=== PATIENT | female | born 1970 | race Caucasian/White ===

== ENCOUNTER → 2016-03-22 | Outpatient (CLI) | payer OTHER ==
--- NOTE | 2016-03-22 19:30 | XR ---
EXAMINATION TYPE: XR knee limited bilateral DATE OF EXAM: 03/22/2016 7:15 PM COMPARISON: NONE HISTORY: Knee pain TECHNIQUE: 5 views FINDINGS: There is narrowing and spurring seen in both knee joints. There is bilateral spurring of th e patellofemoral joints. There is normal alignment. I see no fracture nor dislocation. There is no si gn of joint effusion. IMPRESSION: Hypertrophic osteoarthritis. No fracture. Spurring is more noticeable in the right knee c ompared to the left.
== END | disposition home or self-care (01) ==
LOC: RADXRMAIN 18:51
PROVIDERS: ATTEND Physician Assistant
DX: M17.0 Bilateral primary osteoarthritis of knee (principal); M76.892 Other specified enthesopathies of left lower limb, excluding foot; M76.891 Other specified enthesopathies of right lower limb, excluding foot

== ENCOUNTER → 2016-04-26 | Outpatient (CLI) | payer OTHER ==
--- NOTE | 2016-04-29 07:32 | XR ---
EXAMINATION TYPE: XR lumbosacral spine min 4V DATE OF EXAM: 04/26/2016 10:01 AM CLINICAL HISTORY: pain COMPARISON: NONE TECHNIQUE: Frontal, lateral, and oblique images of the lumbar spine are obtained. FINDINGS: There are 5 lumbar type vertebral bodies identified. The lumbar spine shows satisfactory alignment without evidence of acute fracture or dislocation. Vertebral body heights are within normal limits. Disc spaces are well preserved. The overlying soft tissue appears unremarkable. IMPRESSION: No acute fracture or dislocation is seen in the lumbar spine.ICD 10 NO FRACTURE, INITIAL EVALUATION
== END | disposition home or self-care (01) ==
LOC: RADXRYALE 09:40
PROVIDERS: ATTEND Family Medicine
DX: M51.26 Other intervertebral disc displacement, lumbar region (principal); M51.36 Other intervertebral disc degeneration, lumbar region
CPT/HCPCS: 72110

== ENCOUNTER → 2020-11-02 | Outpatient (CLI) | payer OTHER ==
[2020-11-02 16:25] VITALS: BP 132/78; PULSE 86; TEMP 99.2; BMI 63.1
--- NOTE | 2020-11-02 16:54 | P.HPBAR ---
Bariatric H&P - History & Physicial H&P Date: 11/02/20 History & Physicial: Visit/CC: initial clinic visit Patient initial contact: Initial weight: Initial weight in pounds: Height: 5 ft 4 in Initial BMI: Last weight: Current weight: 166.922 kg Current weight in pounds: 368.00 Current BMI: 63.1 [place] body weight (based on NIH guidelines): 54.431 kg Excess body weight loss: The patient is a 49 year-old F who presents for Bariatric Assessment. Patient interested in sleeve gastrectomy. States she has been considering this for many years. He was close to having a gastric bypass performed in 2002 she states. Patient with history of bad reflux but says it completely controlled with omeprazole 40 mg daily. States she does have a history of hiatal hernia in the past. Also complains of ulcer arthritis chronic back pain hypertension and hypercholesterolemia. No tobacco use. No abdominal surgeries. No recent EGD. No history of DVT or dysphagia. Review of Systems The patient denies any acute changes in vision or hearing, no dysphagia or odynophagia, no chest pain or shortness of breath, no dysuria or hematuria, no headache, no runny nose, no rectal bleeding or melena, no unexplained weight loss Past Medical History Past Medical History: GERD/Reflux, Hyperlipidemia, Hypertension, Osteoarthritis (OA), Sleep Apnea/CPAP/BIPAP, Thyroid Disorder History of Any Multi-Drug Resistant Organisms: None Reported Past Surgical History: Orthopedic Surgery Additional Past Surgical History / Comment(s): d and C Past Anesthesia/Blood Transfusion Reactions: No Reported Reaction Past Psychological History: Anxiety Smoking Status: Former smoker Past Alcohol Use History: None Reported Additional Past Alcohol Use History / Comment(s): quit smoking 2000 Past Drug Use History: None Reported Surgical - Exam Vital Signs Temp Pulse BP 99.2 F 86 132/78 11/02/20 16:08 11/02/20 16:08 11/02/20 16:08 Physical exam: General: Well-developed, well-nourished HEENT: Normocephalic, sclerae nonicteric Abdomen: Nontender, nondistended Extremities: No edema Neuro: Alert and oriented Bariatric Assessment & Plan (1) Morbid obesity with BMI of 60.0-69.9, adult Narrative/Plan: 49-year-old male with morbid obesity and associated comorbidities. Patient interested in sleeve gastrectomy. Risks and benefits of the procedure along with the alternative surgeries reviewed in detail. Anticipated weight loss also discussed in detail. Increased risk of chronic reflux post-sleeve gastrectomy given her history of bad GERD symptoms and hiatal hernia also reviewed. Patient will continue to consider her options of gastric bypass. We'll tentatively plan upper endoscopy near the tail end of her supervised weight loss which is required. If the patient decides to pursue gastric bypass further will make arrangements for her to be seen by appropriate specialist. Status: Acute Bariatric Checklist Checklist: Plan: Checklist: EGD: 1. Hiatal hernia: 2. H. Pylori: HgbA1c: Vitamin D: Smoking: Primary care physician referral: dr chu Psychiatry clearance: Cardiology clearance: Sleep study: Diet journal: VTE risk score: VTE risk level: Rehab needs at discharge:
== END | disposition home or self-care (01) ==
LOC: BARWHC3 15:38
PROVIDERS: ATTEND Surgery
DX: E66.01 Morbid (severe) obesity due to excess calories (principal); Z68.44 Body mass index [BMI] 60.0-69.9, adult
CPT/HCPCS: 99203

== ENCOUNTER → 2021-03-16 | Outpatient (CLI) | payer OTHER ==
--- NOTE | 2021-03-16 10:47 | XR ---
EXAMINATION TYPE: XR lumbosacral spine min 4V DATE OF EXAM: 03/16/2021 CLINICAL HISTORY: Morbidly obese with pain. TECHNIQUE: Frontal, lateral, and oblique images of the lumbar spine are obtained. COMPARISON: Lumbar spine x-ray May 06, 2016 FINDINGS: There are 5 lumbar type vertebral bodies redemonstrated. The lumbar spine shows stable an d satisfactory alignment without evidence of acute fracture or dislocation. Vertebral body heights ar e preserved. Moderate disc space narrowing L3-L4 level redemonstrated. Mild to moderate disc space na rrowing L5-S1 level redemonstrated. Oblique images appear within normal limits. Overlying soft tissue is unremarkable. IMPRESSION: As above. No significant change from prior.
== END | disposition home or self-care (01) ==
LOC: RADXRYALE 09:55
PROVIDERS: ATTEND Family Medicine
DX: M51.36 Other intervertebral disc degeneration, lumbar region (principal)
CPT/HCPCS: 72110

== ENCOUNTER → 2021-05-28 | Outpatient (CLI) | payer OTHER ==
[2021-05-28 11:29] VITALS: BMI 60.9
== END | disposition home or self-care (01) ==
LOC: BARWHC3 08:52
PROVIDERS: ATTEND Surgery
DX: E66.01 Morbid (severe) obesity due to excess calories (principal); Z71.3 Dietary counseling and surveillance
CPT/HCPCS: 97804

== ENCOUNTER 2023-06-08 22:48 | Inpatient (IN) | payer OTHER ==
[2023-06-08] MEDS: ETOMIDATE 2 MG/ML 10 ML VIAL IVP STA (22:54)
[2023-06-08] MEDS: ROCURONIUM 10 MG/ML (5 ML VIAL) IV STA (22:55)
[2023-06-08 22:56] LABS: Glucose,Whole Blood 77 mg/dL (70-110)
--- NOTE | 2023-06-08 23:06 | ED ---
General Adult HPI - General Stated complaint: Unresponsive Time Seen by Provider: 06/08/23 23:00 - History of Present Illness Initial comments: Dictation was produced using [employer] dictation software. please excuse any grammatical, word or spelling errors. Chief Complaint: 55-year-old female presents to the emergency department for unresponsiveness History of Present Illness: Patient 55-year-old female with unknown medical comorbidities. She was last seen normal approximately 1 and half to 2 hours ago. She was found at home in her truck by family. EMS arrived on scene and patient was minimally responsive with what they reported as sluggish pupils. She was not breathing on her own and required BVM assistance. States that her color improved with BVM. Per EMS she had an 80 over palp blood pressure, normal blood glucose and was in normal sinus rhythm Unable to obtain ROS secondary to mental status - Related Data Allergies Allergy/AdvReac Type Severity Reaction Status Date / Time Unable to Assess Allergy Verified 06/08/23 23:07 Review of Systems ROS Statement: Those systems with pertinent positive or pertinent negative responses have been documented in the HPI. ROS Other: All systems not noted in ROS Statement are negative. General Exam - General Exam Comments Initial Comments: PHYSICAL EXAM: General Impression: A obtunded, unresponsive HEENT: Normocephalic atraumatic, extra-ocular movements intact, pupils equal and reactive to light bilaterally, dry mucous membranes Cardiovascular: Heart regular rate and rhythm Chest: A bilateral breath sounds with BVM Abdomen: abdomen soft, non-distended, no organomegaly Musculoskeletal: no peripheral edema Neurological: NIH of 14 Skin: Intact with no visualized rashes Course Vital Signs 06/08/23 06/08/23 06/08/23 22:48 23:00 23:07 Temperature Pulse Rate 59 L 79 Respiratory 6 L 16 Rate Blood Pressure 121/83 137/79 O2 Sat by Pulse 100 98 Oximetry Fraction of 100 Inspired Oxygen (FIO2) 06/08/23 06/08/23 06/08/23 23:15 23:30 23:41 Temperature Pulse Rate 78 75 Respiratory 16 16 Rate Blood Pressure 131/74 162/97 O2 Sat by Pulse 100 100 Oximetry Fraction of 50 Inspired Oxygen (FIO2) 06/08/23 06/09/23 06/09/23 23:45 00:00 00:15 Temperature 95.7 F L Pulse Rate 54 L 57 L 56 L Respiratory 16 16 16 Rate Blood Pressure 154/94 146/91 153/96 O2 Sat by Pulse 99 99 100 Oximetry Fraction of Inspired Oxygen (FIO2) 06/09/23 06/09/23 06/09/23 00:30 00:45 01:00 Temperature 95.9 F L 95.9 F L 95.9 F L Pulse Rate 54 L 48 L 45 L Respiratory 16 16 16 Rate Blood Pressure 140/87 131/80 134/74 O2 Sat by Pulse 99 100 99 Oximetry Fraction of Inspired Oxygen (FIO2) 06/09/23 06/09/23 06/09/23 01:09 01:15 01:30 Temperature 96.3 F L 96.4 F L 96.8 F L Pulse Rate 49 L 48 L 50 L Respiratory 16 16 16 Rate Blood Pressure 133/84 131/88 125/80 O2 Sat by Pulse 100 100 100 Oximetry Fraction of Inspired Oxygen (FIO2) 06/09/23 06/09/23 01:45 02:02 Temperature 96.8 F L 97.0 F L Pulse Rate 50 L 55 L Respiratory 16 16 Rate Blood Pressure 128/79 134/90 O2 Sat by Pulse 100 100 Oximetry Fraction of Inspired Oxygen (FIO2) - Reevaluation(s) Reevaluation #1: 06/08/23 23:05 Seen and evaluated immediately in trauma bay #1. She was obtunded not protecting her airway. RSI procedure was performed. Code stroke paged. NIH score 14. According to EMS last known normal was 1 and half to 2 hours ago. Reevaluation #2: 06/08/23 23:[address] Calhoun at 11:49 PM. He did review the patient's films. Does not recommend any thrombolytics or thrombectomy at this time. Recommends aspirin Lipitor and medical management. Reevaluation #3: 06/09/23 01:42 More history was obtained from significant other states that patient recently lost 100 pounds of intentional weight loss. She however is reliant on opiate medications to treat her knee pain. He denies that patient had had any suicidal homicidal ideation. To his knowledge patient did not overdose on any medications. She has not been complaining of any thing in particular over the last 2 to 3 days. Procedures - Intubation Sedative: Etomidate Paralytic: Rocuronium Laryngoscope: fiber optic video scope Size: 3 Assist Device Used: fiber optic device ET Tube Size: 7.5 ET Tube Uncuffed: No Tube Secured Depth (cm): 23 Tube Secured Location: teeth Tube Placement Confirmation: visualized tube passing through cords, equal breath sounds bilaterally, no breath sounds over epigastrium, confirmation by capnometry Patient Tolerated Procedure: well Intubation Complications: none Medical Decision Making - Medical Decision Making Was pt. sent in by a medical professional or institution (, PA, FLIGHT SERVICE SPECIALIST, urgent care, hospital, or [facility]...) When possible be specific @ -No Did you speak to anyone other than the patient for history (EMS, parent, family, police, friend...)? What history was obtained from this source @ -No Did you review nursing and triage notes (agree or disagree)? Why? @ -I reviewed and agree with nursing and triage notes Were old charts reviewed (outside hosp., previous admission, EMS record, old EKG, old radiological studies, urgent care reports/EKG's, [facility] records)? Report findings @ -No old charts were reviewed Differential Diagnosis (chest pain, altered mental status, abdominal pain women, abdominal pain men, vaginal bleeding, musculoskeletal, weakness, fever, dyspnea, syncope, headache, dizziness, GI bleed, back pain, seizure, CVA, palpatations, mental health)? @ -Differential Altered Mental Status: Hypoglycemia, DKA, hypercapnia, ETOH, overdose, CO poisoning, trauma, myxedema coma, HTN encephalopathy, infection, encephalitis, psychosis, intercranial hemor rhage, hepatic encephalopathy, meningitis, CVA, this is not meant to be an all- inclusive list EKG interpreted by me (3pts min.). @ -My EKG interpretation: Ventricular rate 59, sinus bradycardia,. 161, QRS 110, QTc 434. No MI prolongation, no QTC prolongation, no ST or T-wave changes noted. Overall, this EKG is unremarkable X-rays interpreted by me (1pt min.). @ -Initial chest x-ray shows no acute processes. There was a right mainstem bronchus intubation. Repeat x-ray was performed after ET tube was pulled back CT interpreted by me (1pt min.). @ -CT scan the brain is nonacute. CT angiography of the brain is nonacute. U/S interpreted by me (1pt. min.). @ -None done What testing was considered but not performed or refused? (CT, X-rays, U/S, labs)? Why? @ -None What meds were considered but not given or refused? Why? @ -None Did you discuss the management of the patient with other professionals (professionals i.e. , PA, FLIGHT SERVICE SPECIALIST, lab, RT, psych nurse, social work msw, escrow manager, teacher, supervisory cbp officer, rn case mgr)? Give summary @ -See above. Case also discussed with recorder helper seismograph for ICU admission Was smoking cessation discussed for >3mins.? @ -No Was critical care preformed (if so, how long)? @ -Yes, 33 minutes Were there social determinants of health that impacted care today? How? (Homelessness, low income, unemployed, alcoholism, drug addiction, transportation, low edu. Level, literacy, decrease access to med. care, alf, rehab)? @ -No Was there de-escalation of care discussed even if they declined (Discuss DNR or withdrawal of care, Hospice)? DNR status @ -No What co-morbidities impacted this encounter? (DM, HTN, Smoking, COPD, CAD, Cancer, CVA, ARF, Chemo, Hep., AIDS, mental health diagnosis, sleep apnea, morbid obesity)? @ -None Was patient admitted / discharged? Hospital course, mention meds given and route, prescriptions, significant lab abnormalities, going to OR and other pertinent info. @ -52-year-old female presents to the emergency department for altered mental status. Vital signs upon arrival are within acceptable limits. Patient breathing sonorously for which she was intubated via RSI. It is unclear what is causing patient's altered mentation. Code stroke paged due to acuity of symptoms however she did not have any obvious focal findings. She however did score an NIH of 14 but she did not have any facial droop or asymmetric neuro logic findings. CT imaging is nonacute. Labs are unremarkable. Vital signs are stable. Is unclear what is causing patient's mental issues. She has no leukocytosis. Her ABG is unremarkable. No signs of hypercapnia. No gap acidosis. No hyperammonemia. Liver enzymes normal. Urine drug screen positive for TCAs, amphetamines and marijuana. Patient be admitted to ICU. Undiagnosed new problem with uncertain prognosis? @ -No Drug Therapy requiring intensive monitoring for toxicity (Heparin, Nitro, Insulin, Cardizem)? @ -No Were any procedures done? @ -Yes, endotracheal intubation Diagnosis/symptom? Acute, or Chronic, or Acute on Chronic? Uncomplicated (without systemic symptoms) or Complicated (systemic symptoms)? @ -Altered mental status, no obvious source, respiratory failure Side effects of treatment? @ -No Exacerbation, Progression, or Severe Exacerbation? @ -No Poses a threat to life or bodily function? How? (Chest pain, USA, OR, pneumonia, PE, COPD, DKA, ARF, appy, cholecystitis, CVA, Diverticulitis, Homicidal, Suicidal, threat to staff... and all critical care pts) @ -yes - Lab Data Result diagrams: 06/08/23 23:06 06/08/23 23:06 Lab Results 06/08/23 06/08/23 06/08/23 Range/Units 22:53 23:06 23:06 WBC 8.1 (3.8-10.6) k/uL RBC 4.20 (3.80-5.40) m/uL Hgb 13.2 (11.4-16.0) gm/dL Hct 41.4 (34.0-46.0) % MCV 98.7 (80.0-100.0) fL MCH 31.5 (25.0-35.0) pg MCHC 31.9 (31.0-37.0) g/dL RDW 12.2 (11.5-15.5) % Plt Count 232 (150-450) k/uL MPV 7.2 Neutrophils % 66 % Lymphocytes % 24 % Monocytes % 6 % Eosinophils % 3 % Basophils % 1 % Neutrophils # 5.3 (1.3-7.7) k/uL Lymphocytes # 1.9 (1.0-4.8) k/uL Monocytes # 0.5 (0-1.0) k/uL Eosinophils # 0.2 (0-0.7) k/uL Basophils # 0.1 (0-0.2) k/uL PT 10.3 (10.0-12.5) sec INR 0.9 (<1.2) APTT 22.9 (22.0-30.0) sec Sample Site ABG pH (7.35-7.45) ABG pCO2 (35-45) mmHg ABG pO2 (83-108) mmHg ABG HCO3 (21-25) mmol/L ABG Total CO2 (19-24) mmol/L ABG O2 Saturation (94-97) % ABG Base Excess mmol/L Chidi Test FiO2 % Sodium (137-145) mmol/L Potassium (3.5-5.1) mmol/L Chloride (98-107) mmol/L Carbon Dioxide (22-30) mmol/L Anion Gap mmol/L BUN (7-17) mg/dL Creatinine (0.52-1.04) mg/dL Est GFR (CKD-EPI)AfAm (>60 ml/min/1.73 sqM) Est GFR (CKD-EPI)NonAf (>60 ml/min/1.73 sqM) Glucose (74-99) mg/dL POC Glucose (mg/dL) 77 (70-110) mg/dL POC Glu Probation Supervisor ID Kali Multani Plasma Lactic Acid [place] (0.7-2.0) mmol/L Calcium (8.4-10.2) mg/dL Total Bilirubin (0.2-1.3) mg/dL AST (14-36) U/L ALT (4-34) U/L Alkaline Phosphatase (38-126) U/L Ammonia (<30) umol/L Creatine Kinase (30-135) U/L Troponin I (0.000-0.034) ng/mL Total Protein (6.3-8.2) g/dL Albumin (3.5-5.0) g/dL Urine Color Urine Appearance (Clear) Urine pH (5.0-8.0) Ur Specific [place] (1.001-1.035) Urine Protein (Negative) Urine Glucose (UA) (Negative) Urine Ketones (Negative) Urine Blood (Negative) Urine Nitrite (Negative) Urine Bilirubin (Negative) Urine Urobilinogen (<2.0) mg/dL Ur Leukocyte Esterase (Negative) Urine Opiates Screen (NotDetected) Ur Oxycodone Screen (NotDetected) Urine Methadone Screen (NotDetected) Ur Barbiturates Screen (NotDetected) U Tricyclic Antidepress (NotDetected) Ur Phencyclidine Scrn (NotDetected) Ur Amphetamines Screen (NotDetected) U Methamphetamines Scrn (NotDetected) U Benzodiazepines Scrn (NotDetected) Urine Cocaine Screen (NotDetected) U Marijuana (THC) Screen (NotDetected) Serum Alcohol mg/dL 06/08/23 06/08/23 06/08/23 Range/Units 23:06 23:06 23:34 WBC (3.8-10.6) k/uL RBC (3.80-5.40) m/uL Hgb (11.4-16.0) gm/dL Hct (34.0-46.0) % MCV (80.0-100.0) fL MCH (25.0-35.0) pg MCHC (31.0-37.0) g/dL RDW (11.5-15.5) % Plt Count (150-450) k/uL MPV Neutrophils % % Lymphocytes % % Monocytes % % Eosinophils % % Basophils % % Neutrophils # (1.3-7.7) k/uL Lymphocytes # (1.0-4.8) k/uL Monocytes # (0-1.0) k/uL Eosinophils # (0-0.7) k/uL Basophils # (0-0.2) k/uL PT (10.0-12.5) sec INR (<1.2) APTT (22.0-30.0) sec Sample Site Right Radial ABG pH 7.44 (7.35-7.45) ABG pCO2 41 (35-45) mmHg ABG pO2 361 H (83-108) mmHg ABG HCO3 28 H (21-25) mmol/L ABG Total CO2 29 H (19-24) mmol/L ABG O2 Saturation 99.5 H (94-97) % ABG Base Excess 3.3 mmol/L Chidi Test Yes FiO2 100 % Sodium 135 L (137-145) mmol/L Potassium 4.7 (3.5-5.1) mmol/L Chloride 102 (98-107) mmol/L Carbon Dioxide 30 (22-30) mmol/L Anion Gap 3 mmol/L BUN 15 (7-17) mg/dL Creatinine 0.73 (0.52-1.04) mg/dL Est GFR (CKD-EPI)AfAm >90 (>60 ml/min/1.73 sqM) Est GFR (CKD-EPI)NonAf >90 (>60 ml/min/1.73 sqM) Glucose 82 (74-99) mg/dL POC Glucose (mg/dL) (70-110) mg/dL POC Glu Probation Supervisor ID Plasma Lactic Acid [place] (0.7-2.0) mmol/L Calcium 8.7 (8.4-10.2) mg/dL Total Bilirubin 0.7 (0.2-1.3) mg/dL AST 30 (14-36) U/L ALT 37 H (4-34) U/L Alkaline Phosphatase 188 H (38-126) U/L Ammonia (<30) umol/L Creatine Kinase 59 (30-135) U/L Troponin I <0.012 (0.000-0.034) ng/mL Total Protein 6.2 L (6.3-8.2) g/dL Albumin 3.6 (3.5-5.0) g/dL Urine Color Urine Appearance (Clear) Urine pH (5.0-8.0) Ur Specific [place] (1.001-1.035) Urine Protein (Negative) Urine Glucose (UA) (Negative) Urine Ketones (Negative) Urine Blood (Negative) Urine Nitrite (Negative) Urine Bilirubin (Negative) Urine Urobilinogen (<2.0) mg/dL Ur Leukocyte Esterase (Negative) Urine Opiates Screen (NotDetected) Ur Oxycodone Screen (NotDetected) Urine Methadone Screen (NotDetected) Ur Barbiturates Screen (NotDetected) U Tricyclic Antidepress (NotDetected) Ur Phencyclidine Scrn (NotDetected) Ur Amphetamines Screen (NotDetected) U Methamphetamines Scrn (NotDetected) U Benzodiazepines Scrn (NotDetected) Urine Cocaine Screen (NotDetected) U Marijuana (THC) Screen (NotDetected) Serum Alcohol mg/dL 06/09/23 06/09/23 06/09/23 Range/Units 00:21 00:21 00:21 WBC (3.8-10.6) k/uL RBC (3.80-5.40) m/uL Hgb (11.4-16.0) gm/dL Hct (34.0-46.0) % MCV (80.0-100.0) fL MCH (25.0-35.0) pg MCHC (31.0-37.0) g/dL RDW (11.5-15.5) % Plt Count (150-450) k/uL MPV Neutrophils % % Lymphocytes % % Monocytes % % Eosinophils % % Basophils % % Neutrophils # (1.3-7.7) k/uL Lymphocytes # (1.0-4.8) k/uL Monocytes # (0-1.0) k/uL Eosinophils # (0-0.7) k/uL Basophils # (0-0.2) k/uL PT (10.0-12.5) sec INR (<1.2) APTT (22.0-30.0) sec Sample Site ABG pH (7.35-7.45) ABG pCO2 (35-45) mmHg ABG pO2 (83-108) mmHg ABG HCO3 (21-25) mmol/L ABG Total CO2 (19-24) mmol/L ABG O2 Saturation (94-97) % ABG Base Excess mmol/L Chidi Test FiO2 % Sodium (137-145) mmol/L Potassium (3.5-5.1) mmol/L Chloride (98-107) mmol/L Carbon Dioxide (22-30) mmol/L Anion Gap mmol/L BUN (7-17) mg/dL Creatinine (0.52-1.04) mg/dL Est GFR (CKD-EPI)AfAm (>60 ml/min/1.73 sqM) Est GFR (CKD-EPI)NonAf (>60 ml/min/1.73 sqM) Glucose (74-99) mg/dL POC Glucose (mg/dL) (70-110) mg/dL POC Glu Probation Supervisor ID Plasma Lactic Acid [place] 1.2 (0.7-2.0) mmol/L Calcium (8.4-10.2) mg/dL Total Bilirubin (0.2-1.3) mg/dL AST (14-36) U/L ALT (4-34) U/L Alkaline Phosphatase (38-126) U/L Ammonia <9 (<30) umol/L Creatine Kinase (30-135) U/L Troponin I (0.000-0.034) ng/mL Total Protein (6.3-8.2) g/dL Albumin (3.5-5.0) g/dL Urine Color Colorless Urine Appearance Clear (Clear) Urine pH 6.5 (5.0-8.0) Ur Specific [place] 1.039 H (1.001-1.035) Urine Protein Negative (Negative) Urine Glucose (UA) Negative (Negative) Urine Ketones Negative (Negative) Urine Blood Negative (Negative) Urine Nitrite Negative (Negative) Urine Bilirubin Negative (Negative) Urine Urobilinogen <2.0 (<2.0) mg/dL Ur Leukocyte Esterase Negative (Negative) Urine Opiates Screen Not Detected (NotDetected) Ur Oxycodone Screen Not Detected (NotDetected) Urine Methadone Screen Not Detected (NotDetected) Ur Barbiturates Screen Not Detected (NotDetected) U Tricyclic Antidepress Detected H (NotDetected) Ur Phencyclidine Scrn Not Detected (NotDetected) Ur Amphetamines Screen Detected H (NotDetected) U Methamphetamines Scrn Not Detected (NotDetected) U Benzodiazepines Scrn Not Detected (NotDetected) Urine Cocaine Screen Not Detected (NotDetected) U Marijuana (THC) Screen Detected H (NotDetected) Serum Alcohol <10 mg/dL Disposition Clinical Impression: Altered mental status Disposition: ADMITTED IP TO THIS [facility] Condition: Critical Referrals: None,Stated [Primary Care Provider] - 1-2 days Decision Time: 02:33
[2023-06-08] MEDS: SODIUM CHLORIDE 0.9% 500 ML 500 ML IV STA (23:11)
[2023-06-08 23:20] LABS: Basophils # (A) 0.1 k/uL (0-0.2); Basophils % (A) 1 %; Eosinophils # (A) 0.2 k/uL (0-0.7); Eosinophils % (A) 3 %; HCT 41.4 % (34.0-46.0); HGB 13.2 gm/dL (11.4-16.0); Lymphocytes # (A) 1.9 k/uL (1.0-4.8); Lymphocytes % (A) 24 %; MCH 31.5 pg (25.0-35.0); MCHC 31.9 g/dL (31.0-37.0); MCV 98.7 fL (80.0-100.0); Mean Platelet Volume 7.2; Monocytes # (A) 0.5 k/uL (0-1.0); Monocytes % (A) 6 %; Neutrophils # (A) 5.3 k/uL (1.3-7.7); Neutrophils % (A) 66 %; Platelet Count 232 k/uL (150-450); RDW 12.2 % (11.5-15.5); WBC 8.1 k/uL (3.8-10.6)
[2023-06-08 23:24] LABS: INR 0.9 (<1.2); Partial Thromboplastin Time 22.9 sec (22.0-30.0); Prothrombin Time 10.3 sec (10.0-12.5)
[2023-06-08 23:31] LABS: ALT 37 U/L (4-34); African American GFR (CKD) >90 (>60 ml/min/1.73 sqM); Albumin 3.6 g/dL (3.5-5.0); Anion Gap 3 mmol/L; Blood Urea Nitrogen 15 mg/dL (7-17); Calcium 8.7 mg/dL (8.4-10.2); Carbon Dioxide 30 mmol/L (22-30); Chloride 102 mmol/L (98-107); Creatine Kinase 59 U/L (30-135); Glucose 82 mg/dL (74-99); Non-African American GFR(CKD) >90 (>60 ml/min/1.73 sqM); Sodium 135 mmol/L (137-145); Total Bilirubin 0.7 mg/dL (0.2-1.3); Total Protein 6.2 g/dL (6.3-8.2)
[2023-06-08 23:35] LABS: AST 30 U/L (14-36); Alkaline Phosphatase 188 U/L (38-126); Potassium 4.7 mmol/L (3.5-5.1)
[2023-06-08 23:37] LABS: ABG Base Excess 3.3 mmol/L; ABG HCO3 28 mmol/L (21-25); ABG PCO2 41 mmHg (35-45); ABG PH 7.44 (7.35-7.45); ABG PO2 361 mmHg (83-108); ABG TCO2 29 mmol/L (19-24); Allen Test Performed? Yes
[2023-06-08 23:41] LABS: ABG Oxygen Saturation 99.5 % (94-97)
--- NOTE | 2023-06-08 23:54 | XR ---
EXAM: XR Chest, 1 View CLINICAL HISTORY: ITS.REASON XR Reason: altered mental status TECHNIQUE: Frontal view of the chest. COMPARISON: No relevant prior studies available. FINDINGS: Lungs: Patchy bilateral opacities, right greater than left in the setting of reduced lung volumes. Pleural space: Unremarkable. No pleural effusion or pneumothorax. Heart: Unremarkable. No cardiomegaly. Bones/joints: No acute fracture. No dislocation. Tubes, lines and devices: Right mainstem bronchus intubation. Recommend retraction of endotracheal tube by 4 cm. IMPRESSION: 1. Right mainstem bronchus intubation. Recommend retraction of endotracheal tube by 4 cm. 2. Patchy bilateral opacities, right greater than left in the setting of reduced lung volumes. Findings may represent atelectasis or infiltrates. <MYCVCSECTION> Communications: 06/08/23 23:58 Verify Receipt Verified receipt with Dom given to Dr Wynn on 06/07 23:58 (-04:00)
--- NOTE | 2023-06-08 23:56 | CT ---
EXAM: CT Head Without Intravenous Contrast CLINICAL HISTORY: ITS.REASON CT Reason: Neuro deficit, acute, stroke suspected TECHNIQUE: Axial computed tomography images of the head/brain without intravenous contrast. CTDI is 48.8 mGy and DLP is 1120.1 mGy-cm. This CT exam was performed using one or more of the following dose reduction techniques: automated exposure control, adjustment of the mA and/or kV according to patient size, and/or use of iterative reconstruction technique. COMPARISON: No relevant prior studies available. FINDINGS: Brain: Jimmy-cisterna magna. Mild cerebral volume loss. No hemorrhage. No significant white matter disease. Ventricles: No acute findings. No ventriculomegaly. Bones/joints: Unremarkable. No acute fracture. Soft tissues: Left parietal scalp hematoma. Sinuses: Unremarkable as visualized. No acute sinusitis. Mastoid air cells: Unremarkable as visualized. No mastoid effusion. Tubes, lines and devices: NG tube. IMPRESSION: 1. Left parietal scalp hematoma. 2. No acute intracranial pathology.
--- NOTE | 2023-06-09 | CT ---
EXAM: CT Angiography Head With Intravenous Contrast CLINICAL HISTORY: ITS.REASON CT Reason: Neuro deficit, acute, stroke suspected TECHNIQUE: Axial computed tomographic angiography images of the head with intravenous contrast. CTDI is 48.8 mGy and DLP is 1120.1 mGy-cm. This CT exam was performed using one or more of the following dose reduction techniques: automated exposure control, adjustment of the mA and/or kV according to patient size, and/or use of iterative reconstruction technique. MIP reconstructed images were created and reviewed. COMPARISON: No relevant prior studies available. FINDINGS: Right internal carotid artery: No acute findings. Intracranial segment is patent with no significant stenosis. No aneurysm. Right anterior cerebral artery: No occlusion or significant stenosis. No aneurysm. Right middle cerebral artery: No occlusion or significant stenosis. No aneurysm. Right posterior cerebral artery: No occlusion or significant stenosis. No aneurysm. Right vertebral artery: Unremarkable as visualized. Left internal carotid artery: No acute findings. Intracranial segment is patent with no significant stenosis. No aneurysm. Left anterior cerebral artery: No occlusion or significant stenosis. No aneurysm. Left middle cerebral artery: No occlusion or significant stenosis. No aneurysm. Left posterior cerebral artery: No occlusion or significant stenosis. No aneurysm. Left vertebral artery: Unremarkable as visualized. Basilar artery: No occlusion or significant stenosis. No aneurysm. IMPRESSION: No large vessel occlusion or aneurysm. EXAM: CT Angiography Neck With Intravenous Contrast CLINICAL HISTORY: ITS.REASON CT Reason: Neuro deficit, acute, stroke suspected TECHNIQUE: Routine carotid CT angiography protocol was performed with intravenous contrast. NASCET criteria using the distal ICAs for comparison were used for evaluation of stenoses. CTDI is 53.2 mGy and DLP is 1120.1 mGy-cm. This CT exam was performed using one or more of the following dose reduction techniques: automated exposure control, adjustment of the mA and/or kV according to patient size, and/or use of iterative reconstruction technique. MIP reconstructed images were created and reviewed. COMPARISON: None. FINDINGS: VASCULATURE: Right common carotid artery: No significant stenosis. No dissection or occlusion. Right internal carotid artery: See below. Right external carotid artery: No occlusion. Right vertebral artery: No significant stenosis. No dissection or occlusion. Left common carotid artery: No significant stenosis. No dissection or occlusion. Left internal carotid artery: Extracranial segment is patent with no significant stenosis. No dissection or occlusion. Left external carotid artery: No occlusion. Left vertebral artery: No significant stenosis. No dissection or occlusion. NECK: Bones/joints: No acute findings. Soft tissues: Unremarkable. Retropharyngeal space: Retropharyngeal right internal carotid artery. Lung apices: There is some subsegmental atelectasis in the upper lobes. CAROTID STENOSIS REFERENCE USING NASCET CRITERIA: % ICA stenosis = (1 - narrowest ICA diameter/diameter of distal cervical ICA) x 100. Mild - <50% stenosis. Moderate - 50-69% stenosis. Severe - 70-94% stenosis. Near occlusion - 95-99% stenosis. Occluded - 100% stenosis. IMPRESSION: No acute findings in the arteries of the neck.
[2023-06-09 00:41] LABS: Lactic Acid, Venous 1.2 mmol/L (0.7-2.0)
[2023-06-09 01:22] LABS: Appearance,Urine Clear (Clear); Bilirubin,Urine Negative (Negative); Blood,Urine Negative (Negative); Color,Urine Colorless; Glucose,Urine (UA) Negative (Negative); Ketones,Urine Negative (Negative); Leukocyte Esterase,Urine Negative (Negative); Nitrite,Urine Negative (Negative); PH, Urine 6.5 (5.0-8.0); Protein,Urine Negative (Negative); Specific Gravity,Urine 1.039 (1.001-1.035); Urobilinogen,Urine <2.0 mg/dL (<2.0)
[2023-06-09 01:32] LABS: Amphetamine Screen,Urine Detected (NotDetected); Barbiturate Screen,Urine Not Detected (NotDetected); Benzodiazepines Screen,Urine Not Detected (NotDetected); Cocaine Screen,Urine Not Detected (NotDetected); Methadone Screen, Urine Not Detected (NotDetected); Opiate Screen,Urine Not Detected (NotDetected); Oxycodone Screen, Urine Not Detected (NotDetected); Phencyclidine Screen,Urine Not Detected (NotDetected); Tricyclic Antidepressant,Urine Detected (NotDetected); Urn Cannabinoid Scrn Detected (NotDetected)
--- NOTE | 2023-06-09 01:43 | XR ---
EXAM: XR Chest, 1 View CLINICAL HISTORY: ITS.REASON XR Reason: et tube adjustment TECHNIQUE: Frontal view of the chest. COMPARISON: 06/07/22 at 2343 hrs. FINDINGS/IMPRESSION: 1. Endotracheal tube now 1.3 cm above the phill. 2. No change in patchy bilateral airspace opacities.
[2023-06-09] MEDS ORDERED: NALOXONE 0.4 MG/ML 1 ML VIAL IV PRN (02:26)
[2023-06-09] MEDS: SODIUM CHLORIDE 0.9% 1,000 ML IV SCH (02:46)
[2023-06-09 02:58] LABS: Glucose,Whole Blood 77 mg/dL (70-110)
--- NOTE | 2023-06-09 03:32 | P.CNPUL ---
History of Present Illness Consult date: 06/09/23 Chief complaint: Acute change in mental status History of present illness: 52-year-old morbidly obese female patient, came into the emergency department after the patient was found to be face down in the bathroom by her boyfriend. Unfortunately, not a whole lot of history is available on this patient's presentation. She was last seen normal approximately 1-1/2 to 2 hours ago by the boyfriend. The fire department came to her but bathroom and after extensive manipulation she was able to be moved out and brought into the hospital. In the emergency, the patient was obtunded, not protecting her airways and she had an initial NIH score of 14. Code stroke was declared. The patient was further evaluated by emergency department physician and neuro interventionalists. A CT scan of the brain was done that showed left parietal scalp hematoma without any other acute abnormalities. CT angiogram was also done that showed no occlusion of the major arteries. No aneurysm identified. Based on that, the patient was not given thrombolytics and she was not found to be a candidate for thrombolysis. Subsequently, the patient was intubated and placed on mechanical ventilator and she was moved to the intensive care unit. At this point in time, the patient is on propofol which is running at 40 mcg/kg/min. She grimaces to deep painful stimulation. She is hemodynamically stable and she is afebrile. No seizure activity has been noted. No neck stiffness. No fever. The white cell count is at 8.1 with a hemoglobin of 13.2 and a platelet count of 232. Normal coagulation profile. BUN is at 15 with a creatinine of 0.7 and a sodium levels at 135. Currently she is on assist-control mode of mechanical ventilation with a rate of 16, tidal volume of 450, FiO2 of 50% with a PEEP of 5. The blood gas showed a pH of 7.44 with a pCO2 of 41 and pO2 of 361 and this was on FiO2 of 100% post intubation. The liver function tests are showing an AST of 30, ALT of 37, alk phos is 188, ammonia level is less than 9, CPK 59. Troponins are negative. UA is negative. Urine drug screen is positive for tricyclic's and amphetamine and marijuana. Alcohol level is less than 10. No significant acidosis. Serum bicarb is at 30, potassium level 4.7 and sodium levels at 135. Normal coagulation profile. Chest x-ray post intubation showed some mild pulm vascular congestion. No airspace disease or consolidation. There is some limited patchy perihilar infiltrates on the right probably related to the deep ET tube that was retracted and subsequent chest x-ray showed no change in the patchy bilateral airspace opacities. Hemodynamically stable. Pierson catheter is in place. Urine output is adequate. IV fluids are in the form of normal saline at rate of 120 cc an hour. Review of Systems ROS unobtainable: due to endotracheal tube Past Medical History Past Medical History: Unable to Obtain Additional Past Medical History / Comment(s): Morbid obesity, past medical history is unknown, medications are unknown. History of Any Multi-Drug Resistant Organisms: Unobtainable Past Surgical History: Unable to Obtain Past Psychological History: Unable to Obtain Smoking Status: Unknown if ever smoked Past Alcohol Use History: Unable to Obtain Past Drug Use History: Unable to Obtain Medications and Allergies Allergies Allergy/AdvReac Type Severity Reaction Status Date / Time Unable to Assess Allergy Verified 06/08/23 23:07 Physical Exam Vitals: Vital Signs Temp Pulse Resp BP Pulse Ox FiO2 06/09/23 03:19 50 06/09/23 02:30 97.2 F L 49 L 16 127/82 100 06/09/23 02:15 97.2 F L 48 L 16 121/73 100 06/09/23 02:02 97.0 F L 55 L 16 134/90 100 06/09/23 01:45 96.8 F L 50 L 16 128/79 100 06/09/23 01:30 96.8 F L 50 L 16 125/80 100 06/09/23 01:15 96.4 F L 48 L 16 131/88 100 06/09/23 01:09 96.3 F L 49 L 16 133/84 100 06/09/23 01:00 95.9 F L 45 L 16 134/74 99 06/09/23 00:45 95.9 F L 48 L 16 131/80 100 06/09/23 00:30 95.9 F L 54 L 16 140/87 99 06/09/23 00:15 95.7 F L 56 L 16 153/96 100 06/09/23 00:00 57 L 16 146/91 99 06/08/23 23:45 54 L 16 154/94 99 06/08/23 23:41 50 06/08/23 23:30 75 16 162/97 100 06/08/23 23:15 78 16 131/74 100 06/08/23 23:07 100 06/08/23 23:00 79 16 137/79 98 06/08/23 22:48 59 L 6 L 121/83 100 Intake and Output 06/08/23 06/08/23 06/09/23 14:59 22:59 06:59 Intake Total 61.102 Balance 61.102 Intake: Intake, IV Titration 61.102 Amount propofoL 1,000 mg In 61.102 Empty Bag 1 bag @ 15 MCG/ KG/MIN 11.839 mls/hr IV . Q8H27M [facility] Rx#:[id number] Other: Weight 131.542 kg Patient is currently sedated on propofol, calm and comfortable, intubated on mechanical ventilator. She is morbidly obese with a BMI of 44.1. Head exam was generally normal. There was no scleral icterus or corneal arcus. Mucous membranes were moist. Neck was supple and without jugular venous distension, thyromegaly, or carotid bruits. Carotids were easily palpable bilaterally. There was no adenopathy. Lung sounds are equal and symmetrical bilaterally. No rhonchi or any wheezes. Cardiac exam revealed the PMI to be normally situated and sized. The rhythm was regular and no extrasystoles were noted during several minutes of auscultation. The first and second heart sounds were normal and physiologic splitting of the second heart sound was noted. There were no murmurs, rubs, clicks, or gallops. Abdomen is obese and CANNOT be accurately palpated. No direct tenderness or rebound tenderness or guarding. Examination of the extremities revealed easily palpable radial, femoral and pedal pulses. There was no cyanosis, clubbing or edema. Examination of the skin showed a small hematoma over the right knee area and another hematoma over the left scalp. No open wounds. Neurologically, the patient is sedated. She grimaces to deep painful stimulation. She withdraws to painful stimulation. Pupils are round 67 mm in size, reactive to light. No nystagmus. No preferential gaze. No facial asymmetry. Reflexes are +1 and symmetric in all 4 extremities. Motor and sensory function cannot be accurately elicited. The patient has a positive cough and gag. Results - Laboratory Findings CBC and BMP: 06/08/23 23:06 06/08/23 23:06 ABG ABG pH 7.44 (7.35-7.45) 06/08/23 23:34 ABG pCO2 41 mmHg (35-45) 06/08/23 23:34 ABG pO2 361 mmHg (83-108) H 06/08/23 23:34 ABG O2 Saturation 99.5 % (94-97) H 06/08/23 23:34 PT/INR, D-dimer PT 10.3 sec (10.0-12.5) 06/08/23 23:06 INR 0.9 (<1.2) 06/08/23 23:06 Abnormal lab findings: Abnormal Labs 06/08/23 06/08/23 06/09/23 23:06 23:34 00:21 ABG pO2 361 H ABG HCO3 28 H ABG Total CO2 29 H ABG O2 Saturation 99.5 H Sodium 135 L ALT 37 H Alkaline Phosphatase 188 H Total Protein 6.2 L Ur Specific [place] 1.039 H U Tricyclic Antidepress Detected H Ur Amphetamines Screen Detected H U Marijuana (THC) Screen Detected H - Diagnostic Findings Chest x-ray: image reviewed Assessment and Plan Plan: Acute mental status change. The patient was found to be acutely unresponsive. Exact cause is not clear. The patient was found facedown on the floor. Rule out fall with head trauma. No indication of an acute CVA although this cannot be completely ruled out. CAT scan of the brain and CT angiogram of the brain were essentially negative. No neck stiffness. No fever. No signs of any septicemia. No seizure disorder. No metabolic encephalopathy. No drug-induced encephalopathy at least we know of. Urine drug screen is positive for amphetamine, tricyclic's and marijuana. Patient is currently sedated on propo fol Acute respiratory failure due to mental status change. The patient was not hypoxic or hypercapnic. Blood gases are adequate. The patient was intubated to protect her airway as the patient was found to be profoundly unresponsive. Morbid obesity Perihilar patchy infiltrates, could be related to atelectasis. Pneumonia cannot be completely ruled out Plan Keep the patient on propofol for the time being Cover the patient with IV Unasyn for aspiration purposes. Neurology consultation EEG of the brain in the morning Repeat CAT scan of the brain with the next 24 hours Start the patient on aspirin 81 mg p.o. daily Check sputum Gram stain and culture and blood cultures Echocardiogram in the morning NG tube was inserted and the patient will be kept n.p.o. for now Hemodynamically stable Obtain a baseline EKG put the patient on Lovenox 40 mg subcu for DVT prophylaxis Put the patient on IV Protonix Will need to interview the boyfriend to obtain further information regarding this current presentation. The exact cause for the mental status is not clear to me at this point in time. Condition is critical Time with Patient: Greater than 30
--- NOTE | 2023-06-09 03:59 | XR ---
EXAM: XR Chest, 1 View CLINICAL HISTORY: ITS.REASON XR Reason: NG tube placement TECHNIQUE: Frontal view of the chest. COMPARISON: 06/09/23 at 0124 hours FINDINGS: Lungs: Reduced lung volumes with patchy bilateral opacities, unchanged. Pleural space: Unremarkable. No pleural effusion or pneumothorax. Heart: Unremarkable. No cardiomegaly or pulmonary vascular congestion. Bones/joints: No acute fracture. No dislocation. Tubes, lines and devices: Endotracheal tube 2 cm above the phill. Enteric tube extends to the gastroduodenal junction. IMPRESSION: 1. Reduced lung volumes with patchy bilateral opacities, unchanged. 2. Endotracheal tube 2 cm above the phill. 3. Enteric tube extends to the gastroduodenal junction.
[2023-06-09 06:03] LABS: Glucose,Whole Blood 82 mg/dL (70-110)
[2023-06-09] MEDS: AMPICILLIN-SULBACTAM 3 GM in SODIUM CHLORIDE 0.9% 100 ML IVPB SCH (06:33)
[2023-06-09 06:38] LABS: ABG Base Excess 4.5 mmol/L; ABG HCO3 29 mmol/L (21-25); ABG PCO2 42 mmHg (35-45); ABG PH 7.45 (7.35-7.45); ABG PO2 175 mmHg (83-108); ABG TCO2 30 mmol/L (19-24); Allen Test Performed? Yes
[2023-06-09] MEDS: MIDAZOLAM HCL 50 MG in SODIUM CHLORIDE 0.9% 40 ML IV SCH (08:14)
[2023-06-09] MEDS: ENOXAPARIN 40 MG/0.4 ML SYRINGE SQ SCH (10:18)
[2023-06-09] MEDS: PANTOPRAZOLE 40 MG/10 ML VIAL IVP SCH (10:18)
[2023-06-09] MEDS: ASPIRIN 81 MG PO SCH (10:19)
[2023-06-09 11:49] LABS: Glucose,Whole Blood 117 mg/dL (70-110)
--- NOTE | 2023-06-09 12:13 | P.PN ---
Subjective Progress Note Date: 06/09/23 Principal diagnosis: Acute mental status change, unresponsiveness, requiring intubation mechanical ventilation mostly to protect airways 52-year-old morbidly obese female patient, came into the emergency department after the patient was found to be face down in the bathroom by her boyfriend. Unfortunately, not a whole lot of history is available on this patient's presentation. She was last seen normal approximately 1-1/2 to 2 hours ago by the boyfriend. The fire department came to her but bathroom and after extensive manipulation she was able to be moved out and brought into the hospital. In the emergency, the patient was obtunded, not protecting her airways and she had an initial NIH score of 14. Code stroke was declared. The patient was further evaluated by emergency department physician and neuro interventionalists. A CT scan of the brain was done that showed left parietal scalp hematoma without any other acute abnormalities. CT angiogram was also done that showed no occlusion of the major arteries. No aneurysm identified. Based on that, the patient was not given thrombolytics and she was not found to be a candidate for thrombolysis. Subsequently, the patient was intubated and placed on mechanical ventilator and she was moved to the intensive care unit. At this point in time, the patient is on propofol which is running at 40 mcg/kg/min. She grimaces to deep painful stimulation. She is hemodynamically stable and she is afebrile. No seizure activity has been noted. No neck stiffness. No fever. The white cell count is at 8.1 with a hemoglobin of 13.2 and a platelet count of 232. Normal coagulation profile. BUN is at 15 with a creatinine of 0.7 and a sodium levels at 135. Currently she is on assist-control mode of mechanical aditi tilation with a rate of 16, tidal volume of 450, FiO2 of 50% with a PEEP of 5. The blood gas showed a pH of 7.44 with a pCO2 of 41 and pO2 of 361 and this was on FiO2 of 100% post intubation. The liver function tests are showing an AST of 30, ALT of 37, alk phos is 188, ammonia level is less than 9, CPK 59. Troponins are negative. UA is negative. Urine drug screen is positive for tricyclic's and amphetamine and marijuana. Alcohol level is less than 10. No significant acidosis. Serum bicarb is at 30, potassium level 4.7 and sodium levels at 135. Normal coagulation profile. Chest x-ray post intubation showed some mild pulm vascular congestion. No airspace disease or consolidation. There is some limited patchy perihilar infiltrates on the right probably related to the deep ET tube that was retracted and subsequent chest x-ray showed no change in the patchy bilateral airspace opacities. Hemodynamically stable. Pierson catheter is in place. Urine output is adequate. IV fluids are in the form of normal saline at rate of 120 cc an hour. Patient evaluated today on 06/09/2023, patient is intubated and mechanically ventilated. She is on assist-control rate 16 tidal volume 450 FiO2 40% and PEEP of 5, ABG this morning showed a pO2 of 175 pCO2 42 pH of 7.45 hence FiO2 was cut down to 35%. Patient is requiring propofol at 75 mcg/kg/min she is also on Versed 5 mg/h 0.9 normal saline at 125 cc/h and I cut it down to 75 patient is on Unasyn empirically, she is also on Lovenox for DVT prophylaxis, patient is positive for amphetamine, tricyclic's, marijuana, neurology consultation is pending.The workup is nondiagnostic, and could not explain her episode of unresponsiveness, labs were reviewed, drug screen was reviewed CT angiogram showed no acute findings in the arteries of the neck CT of the brain showed a left parietal scalp hematoma and no intracranial process noted patient remains unresponsive to any stimuli, her pupils are equally reactive to light. Objective - Vital Signs Vital signs: Vital Signs Temp 98.2 F 06/09/23 08:15 Pulse 70 06/09/23 11:00 Resp 16 06/09/23 11:00 BP 124/70 06/09/23 11:00 Pulse Ox 100 06/09/23 11:00 FiO2 35 06/09/23 09:30 Intake & Output 06/08/23 06/09/23 06/09/23 18:59 06:59 18:59 Intake Total 639.431 917.444 Output Total 540 715 Balance 99.431 202.444 Weight 142.7 kg Intake: IV 480 610 Ampicillin-Sulbactam 3 gm 100 In Sodium Chloride 0.9% 100 ml @ 200 mls/hr IVPB Q6HR [facility] Rx#:[id number] Sodium Chloride 0.9% 1, 480 510 000 ml @ 75 mls/hr IV . [id number] [facility] Rx#:[id number] Intake, IV Titration 159.431 247.444 Amount Midazolam HCl 50 mg In 6.300 Sodium Chloride 0.9% 40 ml @ 1 MG/HR 1 mls/hr IV .Q24H [facility] Rx#:[id number] propofoL 1,000 mg In 159.431 241.144 Empty Bag 1 bag @ 15 MCG/ KG/MIN 11.839 mls/hr IV . Q8H27M [facility] Rx#:[id number] Oral 60 Output: Gastric Drainage 250 Urine 540 465 Other: Voiding Method Indwelling Catheter Indwelling Catheter - Exam General: Reveals a 52-year-old female intubated mechanically ventilated not in distress seems to be calm. Skin: Skin is warm and dry and no rashes or lesions are noted. Eye: Pupils are equal, round and reactive to light Ears, nose, mouth and throat: There are moist mucous membranes and no oral lesions. Tracheal tube and orogastric tube are intact. Neck: The neck is supple, there is no tenderness or JVD. Cardiovascular: Distant S1-S2, no S3 gallop. Respiratory: Symmetrical chest expansion clear breath sound bilaterally Gastrointestinal: Soft, non-distended, non-tender abdomen without masses or organomegaly noted. There is no rebound or guarding present. Bowel sounds are unremarkable. Back: There is no tenderness to palpation in the midline. There is no obvious deformity. Musculoskeletal: Normal ROM, no tenderness, There is no pedal edema. There is no calf tenderness or swelling. No cords were appreciated. Neurological: Could not fully assess, patient is requiring propofol and Versed for extreme agitation and restlessness, she is on propofol at 75 and Versed at 5 Psychiatric: Could not assess - Labs CBC & Chem 7: 06/08/23 23:06 06/08/23 23:06 Labs: Abnormal Lab Results - Last 24 Hours (Table) 06/08/23 06/08/23 06/09/23 Range/Units 23:06 23:34 00:21 ABG pO2 361 H (83-108) mmHg ABG HCO3 28 H (21-25) mmol/L ABG Total CO2 29 H (19-24) mmol/L ABG O2 Saturation 99.5 H (94-97) % Sodium 135 L (137-145) mmol/L POC Glucose (mg/dL) (70-110) mg/dL ALT 37 H (4-34) U/L Alkaline Phosphatase 188 H (38-126) U/L Total Protein 6.2 L (6.3-8.2) g/dL Ur Specific [place] 1.039 H (1.001-1.035) U Tricyclic Antidepress Detected H (NotDetected) Ur Amphetamines Screen Detected H (NotDetected) U Marijuana (THC) Screen Detected H (NotDetected) 06/09/23 06/09/23 Range/Units 06:32 11:43 ABG pO2 175 H (83-108) mmHg ABG HCO3 29 H (21-25) mmol/L ABG Total CO2 30 H (19-24) mmol/L ABG O2 Saturation 99.0 H (94-97) % Sodium (137-145) mmol/L POC Glucose (mg/dL) 117 H (70-110) mg/dL ALT (4-34) U/L Alkaline Phosphatase (38-126) U/L Total Protein (6.3-8.2) g/dL Ur Specific [place] (1.001-1.035) U Tricyclic Antidepress (NotDetected) Ur Amphetamines Screen (NotDetected) U Marijuana (THC) Screen (NotDetected) Assessment and Plan Assessment: Impression: Acute mental status change exact etiology remains unclear Intubation to protect airways, patient was not hypoxic or hypercapnic and intubation was mostly done for airways protection Morbid obesity Perihilar patchy infiltrates, possible atelectasis or aspiration patient is empirically on antibiotics Positive drug screen and urine Scalp hematoma secondary to fall Possible seizure Recommendation: Continue ventilatory support, FiO2 cut down to 35% based on ABG, patient is still requiring significant sedation for extreme agitation while intubated and mechanically ventilated. Continue IV Unasyn for aspiration purposes Neurology to see on consultation, EEG and repeat CT of the brain are pending Continue aspirin Continue GI and DVT prophylaxis Nutritional support/enteral feeding Patient is not requiring any hemodynamic support at present Continue IV Lovenox and IV Protonix Will continue to follow. Patient is critically ill. Critical care time is over 30-minute Time with Patient: Greater than 30
--- NOTE | 2023-06-09 13:42 | P.HPIM ---
History of Present Illness H&P Date: 06/09/23 History of present illness; patient is a 52-year-old lady with no significant past medical history brought to the ER for altered mental status and fall. History is limited and most of it is obtained from electronic medical records. According to them patient was found lying facedown on the floor of the restroom by her boyfriend. Patient was not responsive, EMS was called and when they arrived at the spot patient was found to be obtunded. Patient was found to have shallow breaths and minimally responsive. Patient was immediately transferred to the ER. Initial lab work done in the ER showed WBC 8.1, hemoglobin 13.2, platelet count 232, sodium 135, potassium 4.7, BUN 15, creatinine 0.73 UA was negative for any infection Urine drug screen was positive for barbiturates, amphetamines, marijuana. Initial NIH score was 14. Code stroke was called and immediate CT of the head was done that showed left parietal scalp hematoma. CT angiogram was negative for any occlusion of major vessels of head and neck. ER physician discussed with on-call interventional neurologist, patient was deemed not a candidate for thrombolytic therapy Patient was intubated in the ER and was transferred to ICU REVIEW OF SYSTEMS: Currently intubated and sedated PHYSICAL EXAMINATION: GENERAL: The patient is intubated, not in any acute distress. Well developed, well nourished. HEENT: Pupils are round and equally reacting to light. EOMI. No scleral icterus. CARDIOVASCULAR: S1 and S2 present. No murmurs, rubs, or gallops. PULMONARY: Chest is clear to auscultation, no wheezing or crackles. ABDOMEN: Soft, nontender, nondistended, normoactive bowel sounds. No palpable organomegaly. MUSCULOSKELETAL: No joint swelling or deformity. EXTREMITIES: No cyanosis, clubbing, or pedal edema. NEUROLOGICAL: Intubated and sedated SKIN: No rashes. Assessment and plan Acute metabolic encephalopathy Acute hypoxic respiratory failure Polysubstance abuse Morbid obesity Monitor vital signs Monitor CBC Monitor CMP Continue vent management per ICU Aggressive bronchopulmonary hygiene EEG ordered Repeat CT scan of the brain 2D echo ordered Neurology consulted ICU following Labs and medication were reviewed.. Continue same treatment. Continue with symptomatic treatment. Resume home medication. Monitor labs and vitals. DVT and GI prophylaxis. Further recommendations as per clinical course of the patient Dictation was produced using [employer] dictation software. please excuse any grammatical, word or spelling errors. Past Medical History Past Medical History: Unable to Obtain Additional Past Medical History / Comment(s): Morbid obesity, past medical history is unknown, medications are unknown. History of Any Multi-Drug Resistant Organisms: Unobtainable Past Surgical History: Unable to Obtain Additional Past Surgical History / Comment(s): d and C Past Anesthesia/Blood Transfusion Reactions: No Reported Reaction Past Psychological History: Unable to Obtain Smoking Status: Unknown if ever smoked Past Alcohol Use History: Unable to Obtain Past Drug Use History: Unable to Obtain Medications and Allergies Home Medications Medication Instructions Recorded Confirmed Type Amitriptyline HCl [Elavil] 100 mg PO DAILY 11/03/20 11/03/20 History Cyclobenzaprine [Flexeril] 10 mg PO TID 11/03/20 11/03/20 History Levothyroxine Sodium [Tirosint] 100 mcg PO DAILY 11/03/20 11/03/20 History Celecoxib [CeleBREX] 200 mg PO DAILY 11/09/20 11/09/20 History DULoxetine HCL [Cymbalta] 60 mg PO HS 11/09/20 11/09/20 History Gabapentin [Neurontin] 300 mg PO QID 11/09/20 11/09/20 History Lisinopril-Hctz 10-12.5 mg 1 tab PO DAILY 11/09/20 11/09/20 History [Zestoretic 10-12.5] Metoprolol Succinate [Kapspargo 25 mg PO DAILY 11/09/20 11/09/20 History Sprinkle] Naproxen 500 mg PO BID 11/09/20 11/09/20 History Omeprazole 40 mg PO DAILY 11/09/20 11/09/20 History Pravastatin Sodium [Pravachol] 40 mg PO DAILY 11/09/20 11/09/20 History buPROPion HCL [buPROPion HCL SR] 150 mg PO DAILY 11/09/20 11/09/20 History Amitriptyline HCl [Elavil] 100 mg PO HS 06/09/23 06/09/23 History Cyclobenzaprine [Flexeril] 10 mg PO TID 06/09/23 06/09/23 History DULoxetine HCL [Cymbalta] 60 mg PO DAILY 06/09/23 06/09/23 History Furosemide [Lasix] 20 - 40 mg PO DAILY PRN 06/09/23 06/09/23 History Gabapentin [Neurontin] 600 mg PO DAILY 06/09/23 06/09/23 History Gabapentin [Neurontin] 900 mg PO HS 06/09/23 06/09/23 History Levothyroxine Sodium [Synthroid] 100 mcg PO DAILY 06/09/23 06/09/23 History Lisinopril-Hctz 20-25 mg 1 tab PO BID 06/09/23 06/09/23 History [Zestoretic 20-25] Metoprolol Tartrate [Lopressor] 25 mg PO DAILY 06/09/23 06/09/23 History Omeprazole [PriLOSEC] 40 mg PO DAILY 06/09/23 06/09/23 History Phentermine HCl [Adipex-P] 37.5 mg PO DAILY 06/09/23 06/09/23 History Pravastatin Sodium [Pravachol] 40 mg PO DAILY 06/09/23 06/09/23 History SUMAtriptan succinate [Imitrex] 50 mg PO DAILY PRN 06/09/23 06/09/23 History buPROPion SR [Wellbutrin SR] 150 mg PO BID 06/09/23 06/09/23 History oxyCODONE-APAP 7.5-325MG [Percocet 1 tab PO QID PRN 06/09/23 06/09/23 History 7.5-325 mg] Allergies Allergy/AdvReac Type Severity Reaction Status Date / Time No Known Allergies Allergy Verified 06/09/23 10:10 Physical Exam Vitals: Vital Signs Temp Pulse Resp BP BP Pulse Ox FiO2 06/09/23 09:15 72 13 123/69 100 06/09/23 09:00 71 16 116/65 100 06/09/23 08:45 68 16 115/70 100 06/09/23 08:30 72 16 105/75 99 06/09/23 08:15 98.2 F 85 16 115/43 100 40 06/09/23 08:00 87 17 100 40 06/09/23 07:51 40 06/09/23 07:45 75 16 125/84 98 06/09/23 07:30 71 16 120/74 100 06/09/23 07:15 75 15 129/78 100 06/09/23 07:00 58 L 16 116/70 100 06/09/23 06:46 97.9 F 73 16 90/61 100 06/09/23 06:45 60 16 122/69 100 06/09/23 06:42 40 06/09/23 06:30 65 16 100/58 100 06/09/23 06:16 97.9 F 68 16 114/91 100 06/09/23 06:15 74 19 108/54 100 06/09/23 06:00 52 L 16 107/65 100 06/09/23 05:46 97.9 F 51 L 16 107/65 100 06/09/23 05:45 52 L 16 103/64 100 06/09/23 05:30 51 L 16 105/56 100 06/09/23 05:20 50 L 16 100 06/09/23 05:16 97.5 F L 50 L 16 105/56 100 06/09/23 05:10 50 L 16 100/52 100 06/09/23 05:00 50 L 16 98/58 100 06/09/23 04:50 54 L 16 100 06/09/23 04:46 97.5 F L 51 L 16 98/58 100 06/09/23 04:40 52 L 16 97/54 100 06/09/23 04:30 50 L 16 95/42 100 06/09/23 04:20 51 L 16 100 06/09/23 04:16 97.3 F L 51 L 16 95/42 100 06/09/23 04:10 52 L 16 98/45 100 06/09/23 04:00 97.2 F L 52 L 16 93/49 99 50 06/09/23 03:50 53 L 16 100 06/09/23 03:46 97.2 F L 54 L 16 93/45 100 06/09/23 03:40 56 L 16 93/38 100 06/09/23 03:30 63 13 95/69 100 06/09/23 03:20 77 24 100 06/09/23 03:19 50 06/09/23 03:16 60 16 95/65 99 06/09/23 03:10 69 22 120/87 100 06/09/23 03:00 97.3 F L 57 L 19 106/86 100 50 06/09/23 02:37 97.3 F L 16 120/87 99 50 06/09/23 02:30 97.2 F L 49 L 16 127/82 100 06/09/23 02:15 97.2 F L 48 L 16 121/73 100 06/09/23 02:02 97.0 F L 55 L 16 134/90 100 06/09/23 01:45 96.8 F L 50 L 16 128/79 100 06/09/23 01:30 96.8 F L 50 L 16 125/80 100 06/09/23 01:15 96.4 F L 48 L 16 131/88 100 06/09/23 01:09 96.3 F L 49 L 16 133/84 100 06/09/23 01:00 95.9 F L 45 L 16 134/74 99 06/09/23 00:45 95.9 F L 48 L 16 131/80 100 06/09/23 00:30 95.9 F L 54 L 16 140/87 99 06/09/23 00:15 95.7 F L 56 L 16 153/96 100 06/09/23 00:00 57 L 16 146/91 99 06/08/23 23:45 54 L 16 154/94 99 06/08/23 23:41 50 06/08/23 23:30 75 16 162/97 100 06/08/23 23:15 78 16 131/74 100 06/08/23 23:07 100 06/08/23 23:00 79 16 137/79 98 06/08/23 22:48 59 L 6 L 121/83 100 Intake and Output 06/08/23 06/09/23 06/09/23 22:59 06:59 14:59 Intake Total 639.431 551.654 Output Total 540 300 Balance 99.431 251.654 Intake: IV 480 460 Ampicillin-Sulbactam 3 gm 100 In Sodium Chloride 0.9% 100 ml @ 200 mls/hr IVPB Q6HR [facility] Rx#:[id number] Sodium Chloride 0.9% 1, 480 360 000 ml @ 120 mls/hr IV . Q8H20M [facility] Rx#:[id number] Intake, IV Titration 159.431 91.654 Amount Midazolam HCl 50 mg In 5.467 Sodium Chloride 0.9% 40 ml @ 1 MG/HR 1 mls/hr IV .Q24H [facility] Rx#:[id number] propofoL 1,000 mg In 159.431 86.187 Empty Bag 1 bag @ 15 MCG/ KG/MIN 11.839 mls/hr IV . Q8H27M [facility] Rx#:[id number] Output: Urine 540 300 Other: Voiding Method Indwelling Catheter Weight 131.542 kg 142.7 kg Results CBC & Chem 7: 06/08/23 23:06 06/08/23 23:06 Labs: Abnormal Lab Results - Last 24 Hours (Table) 06/08/23 06/08/23 06/09/23 Range/Units 23:06 23:34 00:21 ABG pO2 361 H (83-108) mmHg ABG HCO3 28 H (21-25) mmol/L ABG Total CO2 29 H (19-24) mmol/L ABG O2 Saturation 99.5 H (94-97) % Sodium 135 L (137-145) mmol/L ALT 37 H (4-34) U/L Alkaline Phosphatase 188 H (38-126) U/L Total Protein 6.2 L (6.3-8.2) g/dL Ur Specific [place] 1.039 H (1.001-1.035) U Tricyclic Antidepress Detected H (NotDetected) Ur Amphetamines Screen Detected H (NotDetected) U Marijuana (THC) Screen Detected H (NotDetected) 06/09/23 Range/Units 06:32 ABG pO2 175 H (83-108) mmHg ABG HCO3 29 H (21-25) mmol/L ABG Total CO2 30 H (19-24) mmol/L ABG O2 Saturation 99.0 H (94-97) % Sodium (137-145) mmol/L ALT (4-34) U/L Alkaline Phosphatase (38-126) U/L Total Protein (6.3-8.2) g/dL Ur Specific [place] (1.001-1.035) U Tricyclic Antidepress (NotDetected) Ur Amphetamines Screen (NotDetected) U Marijuana (THC) Screen (NotDetected)
--- NOTE | 2023-06-09 16:24 | P.CNNES ---
History of Present Illness Consult date: 06/09/23 Requesting physician: Herbert Wynn Reason for Consult: Altered mental status History of Present Illness: Patient is a 52-year-old female, who was brought to the hospital by ambulance, yesterday at 10:48 PM. for altered mental status. EMS flowsheet not available in the chart. Patient lives with her boyfriend. Apparently the boyfriend heard a thud and when he went in, he found her on the floor facedown in the bathroom. EMS came and they pulled out from the bathroom. Patient started having agonal breathing therefore she was intubated at the field. Patient was obtunded, not protecting her airways and she had initial NIH stroke scale of 14. Code stroke was activated. Patient had a left parietal scalp hematoma. Her last known well was about 1-1/2 to 2 hours prior to arrival. ED staff discussed case with Dr Mead, as her NIH stroke scale was 14. Patient was not a candidate for tPA because of the presence of scalp hematoma, as per nursing report. Dr. Calhoun recommended statin and aspirin. Vital signs on arrival blood pressure 121/83 pulse rate 59, and patient is afebrile. Patient had some bradycardia in the beginning, but has improved now. Blood test shows normal CBC, PT PTT, normal CMP with mildly elevated ALT 37 but normal AST 30. Troponin negative. UA negative, urine drug screen positive for tricyclic antidepressant, amphetamines and marijuana. Patient's medication list mentions about phentermine, although the nursing report mentions that the list from her physician's office does not say she is on it. Chest x-ray revealed right mainstem bronchus intubation. Recommend retraction of endotracheal tube by 4 cm. Patchy bilateral opacities, right greater than left. Findings may represent atelectasis or infiltrate. CT head revealed left parietal scalp hematoma. No acute intracranial pathology. I personally reviewed CT head agree with the findings. Chest x-ray revealed endotracheal tube now 1.3 cm above the phill. Patient when arrived to the ER, she was on propofol 55 mcg/kg/min. She was thrashing around. The dose was increased to 75 mcg/kg/min which did not help. She was then started on Versed drip, currently on Versed 6 mg/h. The propofol is now down to 60 mcg/kg/min. No reported history of alcoholism. She does have history of chronic pain for which she is on OxyContin. She also uses marijuana. Her home medication list mentions about phentermine, but patient apparently is not taking it. Home medications include omeprazole, Cymbalta 60 mg, sumatriptan, phentermine, Lasix, Wellbutrin SR 150 mg twice daily, gabapentin 900 mg at bedtime, lisinopril/HCTZ, Flexeril, Elavil 100 mg, Percocet, Pravachol, levothyroxine, gabapentin and metoprolol. Review of Systems Nursing staff does not know any more details. Family members not present. ROS unobtainable: due to endotracheal tube, due to mental status Past Medical History Past Medical History: Unable to Obtain Additional Past Medical History / Comment(s): Morbid obesity, past medical history is unknown, medications are unknown. History of Any Multi-Drug Resistant Organisms: Unobtainable Past Surgical History: Unable to Obtain Additional Past Surgical History / Comment(s): d and C Past Anesthesia/Blood Transfusion Reactions: No Reported Reaction Past Psychological History: Unable to Obtain Smoking Status: Unknown if ever smoked Past Alcohol Use History: Unable to Obtain Past Drug Use History: Unable to Obtain Medications and Allergies Home Medications Medication Instructions Recorded Confirmed Type Amitriptyline HCl [Elavil] 100 mg PO DAILY 11/03/20 11/03/20 History Cyclobenzaprine [Flexeril] 10 mg PO TID 11/03/20 11/03/20 History Levothyroxine Sodium [Tirosint] 100 mcg PO DAILY 11/03/20 11/03/20 History Celecoxib [CeleBREX] 200 mg PO DAILY 11/09/20 11/09/20 History DULoxetine HCL [Cymbalta] 60 mg PO HS 11/09/20 11/09/20 History Gabapentin [Neurontin] 300 mg PO QID 11/09/20 11/09/20 History Lisinopril-Hctz 10-12.5 mg 1 tab PO DAILY 11/09/20 11/09/20 History [Zestoretic 10-12.5] Metoprolol Succinate [Kapspargo 25 mg PO DAILY 11/09/20 11/09/20 History Sprinkle] Naproxen 500 mg PO BID 11/09/20 11/09/20 History Omeprazole 40 mg PO DAILY 11/09/20 11/09/20 History Pravastatin Sodium [Pravachol] 40 mg PO DAILY 11/09/20 11/09/20 History buPROPion HCL [buPROPion HCL SR] 150 mg PO DAILY 11/09/20 11/09/20 History Amitriptyline HCl [Elavil] 100 mg PO HS 06/09/23 06/09/23 History Cyclobenzaprine [Flexeril] 10 mg PO TID 06/09/23 06/09/23 History DULoxetine HCL [Cymbalta] 60 mg PO DAILY 06/09/23 06/09/23 History Furosemide [Lasix] 20 - 40 mg PO DAILY PRN 06/09/23 06/09/23 History Gabapentin [Neurontin] 600 mg PO DAILY 06/09/23 06/09/23 History Gabapentin [Neurontin] 900 mg PO HS 06/09/23 06/09/23 History Levothyroxine Sodium [Synthroid] 100 mcg PO DAILY 06/09/23 06/09/23 History Lisinopril-Hctz 20-25 mg 1 tab PO BID 06/09/23 06/09/23 History [Zestoretic 20-25] Metoprolol Tartrate [Lopressor] 25 mg PO DAILY 06/09/23 06/09/23 History Omeprazole [PriLOSEC] 40 mg PO DAILY 06/09/23 06/09/23 History Phentermine HCl [Adipex-P] 37.5 mg PO DAILY 06/09/23 06/09/23 History Pravastatin Sodium [Pravachol] 40 mg PO DAILY 06/09/23 06/09/23 History SUMAtriptan succinate [Imitrex] 50 mg PO DAILY PRN 06/09/23 06/09/23 History buPROPion SR [Wellbutrin SR] 150 mg PO BID 06/09/23 06/09/23 History oxyCODONE-APAP 7.5-325MG [Percocet 1 tab PO QID PRN 06/09/23 06/09/23 History 7.5-325 mg] Allergies Allergy/AdvReac Type Severity Reaction Status Date / Time No Known Allergies Allergy Verified 06/09/23 10:10 Physical Examination - Vital Signs Vital Signs: Vital Signs Temp Pulse Resp BP BP Pulse Ox FiO2 06/09/23 12:17 35 06/09/23 11:00 70 16 124/70 100 06/09/23 10:45 69 16 124/70 100 06/09/23 10:30 71 16 124/70 100 06/09/23 10:15 70 16 123/69 100 06/09/23 10:00 72 18 100 06/09/23 09:45 64 16 115/72 100 06/09/23 09:30 70 16 95/50 100 35 06/09/23 09:15 72 13 123/69 100 06/09/23 09:00 71 16 116/65 100 06/09/23 08:45 68 16 115/70 100 06/09/23 08:30 72 16 105/75 99 06/09/23 08:15 98.2 F 85 16 115/43 100 40 06/09/23 08:00 87 17 100 40 06/09/23 07:51 40 06/09/23 07:45 75 16 125/84 98 06/09/23 07:30 71 16 120/74 100 06/09/23 07:15 75 15 129/78 100 06/09/23 07:00 58 L 16 116/70 100 06/09/23 06:46 97.9 F 73 16 90/61 100 06/09/23 06:45 60 16 122/69 100 06/09/23 06:42 40 06/09/23 06:30 65 16 100/58 100 06/09/23 06:16 97.9 F 68 16 114/91 100 06/09/23 06:15 74 19 108/54 100 06/09/23 06:00 52 L 16 107/65 100 06/09/23 05:46 97.9 F 51 L 16 107/65 100 06/09/23 05:45 52 L 16 103/64 100 06/09/23 05:30 51 L 16 105/56 100 06/09/23 05:20 50 L 16 100 06/09/23 05:16 97.5 F L 50 L 16 105/56 100 06/09/23 05:10 50 L 16 100/52 100 06/09/23 05:00 50 L 16 98/58 100 06/09/23 04:50 54 L 16 100 06/09/23 04:46 97.5 F L 51 L 16 98/58 100 06/09/23 04:40 52 L 16 97/54 100 06/09/23 04:30 50 L 16 95/42 100 06/09/23 04:20 51 L 16 100 06/09/23 04:16 97.3 F L 51 L 16 95/42 100 06/09/23 04:10 52 L 16 98/45 100 06/09/23 04:00 97.2 F L 52 L 16 93/49 99 50 06/09/23 03:50 53 L 16 100 06/09/23 03:46 97.2 F L 54 L 16 93/45 100 06/09/23 03:40 56 L 16 93/38 100 06/09/23 03:30 63 13 95/69 100 06/09/23 03:20 77 24 100 06/09/23 03:19 50 06/09/23 03:16 60 16 95/65 99 06/09/23 03:10 69 22 120/87 100 06/09/23 03:00 97.3 F L 57 L 19 106/86 100 50 06/09/23 02:37 97.3 F L 16 120/87 99 50 06/09/23 02:30 97.2 F L 49 L 16 127/82 100 06/09/23 02:15 97.2 F L 48 L 16 121/73 100 06/09/23 02:02 97.0 F L 55 L 16 134/90 100 06/09/23 01:45 96.8 F L 50 L 16 128/79 100 06/09/23 01:30 96.8 F L 50 L 16 125/80 100 06/09/23 01:15 96.4 F L 48 L 16 131/88 100 06/09/23 01:09 96.3 F L 49 L 16 133/84 100 06/09/23 01:00 95.9 F L 45 L 16 134/74 99 06/09/23 00:45 95.9 F L 48 L 16 131/80 100 06/09/23 00:30 95.9 F L 54 L 16 140/87 99 06/09/23 00:15 95.7 F L 56 L 16 153/96 100 06/09/23 00:00 57 L 16 146/91 99 06/08/23 23:45 54 L 16 154/94 99 06/08/23 23:41 50 06/08/23 23:30 75 16 162/97 100 06/08/23 23:15 78 16 131/74 100 06/08/23 23:07 100 06/08/23 23:00 79 16 137/79 98 06/08/23 22:48 59 L 6 L 121/83 100 Intake and Output 06/08/23 06/09/23 06/09/23 22:59 06:59 14:59 Intake Total 774.710 2084.444 Output Total 540 765 Balance 99.431 327.444 Intake: IV 480 785 Ampicillin-Sulbactam 3 gm 200 In Sodium Chloride 0.9% 100 ml @ 200 mls/hr IVPB Q6HR [facility] Rx#:[id number] Sodium Chloride 0.9% 1, 480 585 000 ml @ 75 mls/hr IV . [id number] [facility] Rx#:[id number] Intake, IV Titration 159.431 247.444 Amount Midazolam HCl 50 mg In 6.300 Sodium Chloride 0.9% 40 ml @ 1 MG/HR 1 mls/hr IV .Q24H [facility] Rx#:[id number] propofoL 1,000 mg In 159.431 241.144 Empty Bag 1 bag @ 15 MCG/ KG/MIN 11.839 mls/hr IV . Q8H27M [facility] Rx#:[id number] Oral 60 Output: Gastric Drainage 250 Urine 540 515 Other: Voiding Method Indwelling Catheter Indwelling Catheter Weight 131.542 kg 142.7 kg Patient is a middle aged female, who is intubated, sedated on propofol 60 mcg/kg/min as well as Versed 6 mg/h. Patient is sedated, not responding to calling her name. Speech and language functions cannot be assessed. On cranial nerve examination, pupils are about 4 mm, equal, round and reacting to light, oculocephalics are absent. Corneal reflex are present. Patient does have a gag and cough reflex, and is breathing over the ventilator. Other cranial nerves cannot be tested. On muscle strength testing, patient does not squeeze hand. Does not follow commands. With painful stimulus, patient does move her both arms and legs equally. No obvious flaccidity. Deep tendon reflexes are symmetric very hypoactive and plantars are withdrawal versus upgoing bilaterally. Patient is actively moving her legs unchecking plantar stimulation. Sensory to touch cannot be assessed. Response to noxious stimulus as above. Cerebellar function cannot be tested. Tone and bulk of muscles normal. Gait deferred.. On general examination, there is no carotid bruit or murmur, S1-S2 audible. Chest is clear on consultation. Abdomen is soft nontender. No organomegaly, bowel sounds present. Peripheral pulses are present. No peripheral edema. Results - Laboratory Findings CBC and BMP: 06/10/23 06:02 06/10/23 06:02 Abnormal Lab Findings: Abnormal Labs 06/08/23 06/08/23 06/09/23 23:06 23:34 00:21 ABG pO2 361 H ABG HCO3 28 H ABG Total CO2 29 H ABG O2 Saturation 99.5 H Sodium 135 L POC Glucose (mg/dL) ALT 37 H Alkaline Phosphatase 188 H Total Protein 6.2 L Ur Specific [place] 1.039 H U Tricyclic Antidepress Detected H Ur Amphetamines Screen Detected H U Marijuana (THC) Screen Detected H 06/09/23 06/09/23 06:32 11:43 ABG pO2 175 H ABG HCO3 29 H ABG Total CO2 30 H ABG O2 Saturation 99.0 H Sodium POC Glucose (mg/dL) 117 H ALT Alkaline Phosphatase Total Protein Ur Specific [place] U Tricyclic Antidepress Ur Amphetamines Screen U Marijuana (THC) Screen Assessment and Plan Assessment: * Status post unwitnessed fall, followed by altered mental status, unclear cause. * Patient had agonal breathing when EMS arrived, intubated at the scene. * Ventilator dependent respiratory failure, on mechanical ventilation. * Obesity * History of chronic pain. * History of marijuana use Plan: * Stat EEG was performed, which was abnormal due to background slowing of moderate to severe degree, suggestive of generalized cerebral dysfunction as can be seen with toxic metabolic encephalopathy or related to diffuse structural brain abnormality. No epileptiform activity was seen. * CTA of head and neck revealed no large vessel occlusion or aneurysm. No acute findings in the arteries of the neck. * Repeat CT head in the morning. * 2D echo revealed mild left ventricular dysfunction. LVEF 45 to 50%. Severely increased left ventricular diastolic volume. Severely increased left ventricular systolic volume. Global hypokinesis with regional variability. Moderately increased left atrial volume. No valvular abnormalities. * Lipid panel * A1c * Medical management as per IM/ICU. * Neurology will follow. Thank you for the consult.
--- NOTE | 2023-06-09 18:15 | CA ---
Transthoracic Echo Report Name: Svitlana Mireles Age: 52 Gender: F : 1970 Exam Date: 06/09/2023 07:42 Exam Location: [facility] Ht (in): 68 Wt (lb): 290 Ordering Physician: Sejal June MD Attending/Referring Phys: Clinical Administrative Coordinator Felicita Argueta RCS Procedure CPT: Indications: eval LV function Cardiac Hx: Technical Quality: Technically difficult study Contrast 1: Definity Total Dose (mL): 2 Contrast 2: Total Dose (mL): MEASUREMENTS (Male / Female) Normal Values 2D ECHO LV Diastolic Diameter PLAX 4.2 cm 4.2 - 5.9 / 3.9 - 5.3 cm LV Systolic Diameter PLAX 4.2 cm IVS Diastolic Thickness 0.9 cm 0.6 - 1.0 / 0.6 - 0.9 cm LVPW Diastolic Thickness 0.7 cm 0.6 - 1.0 / 0.6 - 0.9 cm LV Relative Wall Thickness 0.4 RV Internal Dim ED PLAX 3.4 cm LVOT Diameter 2.2 cm LV Diastolic Volume MOD BP 177.7 cm??? 67 - 155 / 56 - 104 cm??? LV Systolic Volume MOD BP 81.2 cm??? 22 - 58 / 19 - 49 cm??? LV Ejection Fraction MOD BP 54.3 % >= 55 % LV Cardiac Index MOD BP 2844.0 cm???/min???m??? LV Diastolic Volume MOD 4C 178.1 cm??? LV Systolic Volume MOD 4C 82.6 cm??? LV Ejection Fraction MOD 4C 53.6 % LV Cardiac Index MOD 4C 2815.0 cm???/min???m??? LV Diastolic Length 4C 9.7 cm LV Systolic Length 4C 7.3 cm LV Diastolic Volume MOD 2C 165.5 cm??? LV Systolic Volume MOD 2C 79.0 cm??? LV Ejection Fraction MOD 2C 52.2 % LV Cardiac Index MOD 2C 2547.8 cm???/min???m??? LV Diastolic Length 2C 9.0 cm LV Systolic Length 2C 7.4 cm LA Volume 98.3 cm??? 18 - 58 / 22 - 52 cm??? LA Volume Index 38.1 cm???/m??? 16 - 28 cm???/m??? Ascending Aorta Diameter 3.3 cm DOPPLER AV Peak Velocity 138.7 cm/s AV Peak Gradient 7.7 mmHg AV Mean Velocity 96.1 cm/s AV Mean Gradient 4.1 mmHg AV Velocity Time Integral 30.6 cm LVOT Peak Velocity 126.4 cm/s LVOT Peak Gradient 6.4 mmHg LVOT Velocity Time Integral 27.2 cm LVOT Stroke Volume 102.8 cm??? LVOT Stroke Volume Index 42.9 ml/m??? LVOT Cardiac Index 3028.4 cm???/min???m??? AV Area Cont Eq vti 3.4 cm??? AV Area Cont Eq pk 3.4 cm??? MV Area PHT 5.1 cm??? Mitral E Point Velocity 74.1 cm/s Mitral A Point Velocity 83.1 cm/s Mitral E to A Ratio 0.9 MV Deceleration Time 149.3 ms PV Peak Velocity 96.5 cm/s PV Peak Gradient 3.7 mmHg FINDINGS Left Ventricle Left ventricular ejection fraction is estimated at 45-50 %. Severely increased left ventricular diastolic volume. Severely increased left ventricular systolic volume. Mildly decreased left ventricular ejection fraction. Global hypokinesis with regional variability. Right Ventricle Right ventricular dilatation with normal function. Unable to assess right ventricular systolic function. Right Atrium Normal right atrial size. Left Atrium Moderately increased left atrial volume. Mildly increased left atrial area. Mitral Valve Structurally normal mitral valve. No evidence for mitral valve prolapse. No mitral stenosis. Trace mitral regurgitation. Aortic Valve Trileaflet aortic valve. No aortic stenosis. No aortic regurgitation. Tricuspid Valve Structurally normal tricuspid valve. No tricuspid stenosis. No tricuspid regurgitation. Pulmonic Valve Structurally normal pulmonic valve. No pulmonic stenosis. Trace pulmonic regurgitation. Pericardium No pericardial effusion. Aorta Normal size aortic root and proximal ascending aorta. CONCLUSIONS Mild LV dysfunction Previewed by: Dr. Sergey Bradshaw MD (Electronically Signed) Final Date: 09 June 2023 18:14
[2023-06-09] MEDS: CHLORHEXIDINE GLUCONATE 15 ML CUP MUCOUS MEM SCH (20:56)
--- NOTE | 2023-06-10 00:11 | CT ---
EXAM: CT Head Without Intravenous Contrast CLINICAL HISTORY: ITS.REASON CT Reason: R/O stroke TECHNIQUE: Axial computed tomography images of the head/brain without intravenous contrast. CTDI is 49.1 mGy and DLP is 1273.6 mGy-cm. This CT exam was performed using one or more of the following dose reduction techniques: automated exposure control, adjustment of the mA and/or kV according to patient size, and/or use of iterative reconstruction technique. COMPARISON: 06/08/2023 at 1107 FINDINGS: Brain: Unremarkable. No hemorrhage. No significant white matter disease. No edema. Ventricles: Unremarkable. No ventriculomegaly. Bones/joints: Unremarkable. No acute fracture. Soft tissues: Decreasing left parietal soft tissue swelling. Sinuses: Unremarkable as visualized. No acute sinusitis. Mastoid air cells: Unremarkable as visualized. No mastoid effusion. IMPRESSION: Decreasing left parietal soft tissue swelling. No acute intracranial abnormality.
[2023-06-10 00:31] LABS: Glucose,Whole Blood 105 mg/dL (70-110)
[2023-06-10 06:02] LABS: ABG Base Excess 5.3 mmol/L; ABG HCO3 29 mmol/L (21-25); ABG PCO2 41 mmHg (35-45); ABG PH 7.46 (7.35-7.45); ABG PO2 124 mmHg (83-108); ABG TCO2 30 mmol/L (19-24); Allen Test Performed? Yes
[2023-06-10 06:11] LABS: Glucose,Whole Blood 115 mg/dL (70-110)
[2023-06-10 07:32] LABS: African American GFR (CKD) >90 (>60 ml/min/1.73 sqM); Anion Gap 9 mmol/L; Blood Urea Nitrogen 10 mg/dL (7-17); Calcium 8.2 mg/dL (8.4-10.2); Carbon Dioxide 23 mmol/L (22-30); Chloride 101 mmol/L (98-107); Glucose 101 mg/dL (74-99); Non-African American GFR(CKD) >90 (>60 ml/min/1.73 sqM); Potassium 3.7 mmol/L (3.5-5.1); Sodium 133 mmol/L (137-145)
[2023-06-10] MEDS ORDERED: Potassium Replacement Protocol 1 EACH MISC MISCELLANE PRN (08:00)
[2023-06-10 08:26] LABS: Basophils # (A) 0.1 k/uL (0-0.2); Basophils % (A) 0 %; Eosinophils % (A) 0 %; HCT 36.9 % (34.0-46.0); HGB 11.7 gm/dL (11.4-16.0); Lymphocytes # (A) 0.9 k/uL (1.0-4.8); Lymphocytes % (A) 7 %; MCH 31.9 pg (25.0-35.0); MCHC 31.8 g/dL (31.0-37.0); MCV 100.3 fL (80.0-100.0); Monocytes # (A) 0.7 k/uL (0-1.0); Monocytes % (A) 5 %; Neutrophils # (A) 10.8 k/uL (1.3-7.7); Neutrophils % (A) 85 %; Platelet Count 182 k/uL (150-450); RBC 3.68 m/uL (3.80-5.40); RDW 12.2 % (11.5-15.5); WBC 12.7 k/uL (3.8-10.6)
--- NOTE | 2023-06-10 09:23 | XR ---
EXAMINATION TYPE: XR chest 1V portable DATE OF EXAM: 06/10/2023 Comparison: 06/09/2023 Clinical History: 52 year-old female tube placement Findings: ET and NG tubes satisfactory. Heart borderline in size. Patchy bilateral airspace opacities persist, possibly slightly worsened. Impression: Bilateral patchy airspace opacities similar to slightly increased.
[2023-06-10] MEDS: POTASSIUM BICARBONATE/CIT AC 20 MEQ TABLET.EFF NG-TUBE SCH (09:30)
[2023-06-10] MEDS: HYDROmorphone 1 MG/ML 1 ML SYRINGE IVP PRN (10:47)
[2023-06-10 11:54] LABS: Glucose,Whole Blood 123 mg/dL (70-110)
--- NOTE | 2023-06-10 13:00 | P.PN ---
Subjective Progress Note Date: 06/10/23 patient is a 52-year-old lady with no significant past medical history brought to the ER for altered mental status and fall. History is limited and most of it is obtained from electronic medical records. According to them patient was found lying facedown on the floor of the restroom by her boyfriend. Patient was not responsive, EMS was called and when they arrived at the spot patient was found to be obtunded. Patient was found to have shallow breaths and minimally responsive. Patient was immediately transferred to the ER. Initial lab work done in the ER showed WBC 8.1, hemoglobin 13.2, platelet count 232, sodium 135, potassium 4.7, BUN 15, creatinine 0.73 UA was negative for any infection Urine drug screen was positive for barbiturates, amphetamines, marijuana. Initial NIH score was 14. Code stroke was called and immediate CT of the head was done that showed left parietal scalp hematoma. CT angiogram was negative for any occlusion of major vessels of head and neck. ER physician discussed with on-call interventional neurologist, patient was deemed not a candidate for thrombolytic therapy Patient was intubated in the ER and was transferred to ICU 06/09. Patient seen and examined.Blood work done this morning showed WBC 12.7, hemoglobin 0.7, platelet count 182, sodium 133, potassium 3.7, BUN 10, creatinine 0.50, glucose 115. EEG was performed, which was abnormal due to background slowing of moderate to severe degree, suggestive of generalized cerebral dysfunction as can be seen with toxic metabolic encephalopathy or related to diffuse structural brain abn ormality. No epileptiform activity was seen. REVIEW OF SYSTEMS: Currently intubated and sedated PHYSICAL EXAMINATION: GENERAL: The patient is intubated, not in any acute distress. Well developed, well nourished. HEENT: Pupils are round and equally reacting to light. EOMI. No scleral icterus. CARDIOVASCULAR: S1 and S2 present. No murmurs, rubs, or gallops. PULMONARY: Chest is clear to auscultation, no wheezing or crackles. ABDOMEN: Soft, nontender, nondistended, normoactive bowel sounds. No palpable organomegaly. MUSCULOSKELETAL: No joint swelling or deformity. EXTREMITIES: No cyanosis, clubbing, or pedal edema. NEUROLOGICAL: Intubated and sedated SKIN: No rashes. Assessment and plan Acute metabolic encephalopathy Acute hypoxic respiratory failure Polysubstance abuse Morbid obesity Monitor vital signs Monitor CBC Monitor CMP Continue vent management per ICU Aggressive bronchopulmonary hygiene Continue IV Unasyn EEG was performed, which was abnormal due to background slowing of moderate to severe degree, suggestive of generalized cerebral dysfunction as can be seen with toxic metabolic encephalopathy or related to diffuse structural brain abnormality. No epileptiform activity was seen. Repeat CT scan of the brain on 06/08 showed no acute abnormality 2D echo revealed mild left ventricular dysfunction. LVEF 45 to 50%. Severely increased left ventricular diastolic volume. Severely increased left ventricular systolic volume. Global hypokinesis with regional variability. Moderately increased left atrial volume. No valvular abnormalities. Neurology following ICU following 2D echo was reviewed, consult cardiology. Labs and medication were reviewed.. Continue same treatment. Continue with symptomatic treatment. Resume home medication. Monitor labs and vitals. DVT and GI prophylaxis. Further recommendations as per clinical course of the patient Dictation was produced using [employer] dictation software. please excuse any grammatical, word or spelling errors. Objective - Vital Signs Vital signs: Vital Signs Temp 99 F 06/10/23 04:00 Pulse 69 06/10/23 11:30 Resp 19 06/10/23 11:30 BP 128/55 06/10/23 11:30 Pulse Ox 98 06/10/23 11:30 FiO2 35 06/10/23 12:00 Intake & Output 06/09/23 06/10/23 06/10/23 18:59 06:59 18:59 Intake Total 2075.534 1883.537 915.159 Output Total 4560 340 173 Balance -2484.466 1543.537 742.159 Weight 142.7 kg 148 kg Intake: IV 1410 925 450 Ampicillin-Sulbactam 3 gm 300 100 In Sodium Chloride 0.9% 100 ml @ 200 mls/hr IVPB Q6HR [facility] Rx#:[id number] Sodium Chloride 0.9% 1, 1110 825 450 000 ml @ 75 mls/hr IV . [id number] JASMIN Rx#:[id number] Intake, IV Titration 531.534 681.537 243.159 Amount Midazolam HCl 50 mg In 50.533 114.733 66.367 Sodium Chloride 0.9% 40 ml @ 1 MG/HR 1 mls/hr IV .Q24H [facility]ASMIN Rx#:[id number] propofoL 1,000 mg In 481.001 566.804 176.792 Empty Bag 1 bag @ 15 MCG/ KG/MIN 11.839 mls/hr IV . [id number] JASMIN Rx#:[id number] Oral 60 Tube Feeding 44 187 132 Other 30 90 90 Output: Gastric Drainage 250 Urine 4310 340 173 Other: Voiding Method Indwelling Catheter Indwelling Catheter - Labs CBC & Chem 7: 06/10/23 06:02 06/10/23 06:02 Labs: Abnormal Lab Results - Last 24 Hours (Table) 06/10/23 06/10/23 06/10/23 Range/Units 05:57 06:02 06:02 WBC 12.7 H (3.8-10.6) k/uL RBC 3.68 L (3.80-5.40) m/uL MCV 100.3 H (80.0-100.0) fL Neutrophils # 10.8 H (1.3-7.7) k/uL Lymphocytes # 0.9 L (1.0-4.8) k/uL ABG pH 7.46 H (7.35-7.45) ABG pO2 124 H (83-108) mmHg ABG HCO3 29 H (21-25) mmol/L ABG Total CO2 30 H (19-24) mmol/L ABG O2 Saturation 98.0 H (94-97) % Sodium 133 L (137-145) mmol/L Creatinine 0.50 L (0.52-1.04) mg/dL Glucose 101 H (74-99) mg/dL POC Glucose (mg/dL) (70-110) mg/dL Calcium 8.2 L (8.4-10.2) mg/dL 06/10/23 06/10/23 Range/Units 06:09 11:51 WBC (3.8-10.6) k/uL RBC (3.80-5.40) m/uL MCV (80.0-100.0) fL Neutrophils # (1.3-7.7) k/uL Lymphocytes # (1.0-4.8) k/uL ABG pH (7.35-7.45) ABG pO2 (83-108) mmHg ABG HCO3 (21-25) mmol/L ABG Total CO2 (19-24) mmol/L ABG O2 Saturation (94-97) % Sodium (137-145) mmol/L Creatinine (0.52-1.04) mg/dL Glucose (74-99) mg/dL POC Glucose (mg/dL) 115 H 123 H (70-110) mg/dL Calcium (8.4-10.2) mg/dL Microbiology - Last 24 Hours (Table) 06/08/23 23:55 Gram Stain - Preliminary Sputum
--- NOTE | 2023-06-10 13:21 | P.PN ---
Subjective Progress Note Date: 06/10/23 Principal diagnosis: Acute mental status change, unresponsiveness, requiring intubation mechanical ventilation mostly to protect airways 52-year-old morbidly obese female patient, came into the emergency department after the patient was found to be face down in the bathroom by her boyfriend. Unfortunately, not a whole lot of history is available on this patient's presentation. She was last seen normal approximately 1-1/2 to 2 hours ago by the boyfriend. The fire department came to her but bathroom and after extensive manipulation she was able to be moved out and brought into the hospital. In the emergency, the patient was obtunded, not protecting her airways and she had an initial NIH score of 14. Code stroke was declared. The patient was further evaluated by emergency department physician and neuro interventionalists. A CT scan of the brain was done that showed left parietal scalp hematoma without any other acute abnormalities. CT angiogram was also done that showed no occlusion of the major arteries. No aneurysm identified. Based on that, the patient was not given thrombolytics and she was not found to be a candidate for thrombolysis. Subsequently, the patient was intubated and placed on mechanical ventilator and she was moved to the intensive care unit. At this point in time, the patient is on propofol which is running at 40 mcg/kg/min. She grimaces to deep painful stimulation. She is hemodynamically stable and she is afebrile. No seizure activity has been noted. No neck stiffness. No fever. The white cell count is at 8.1 with a hemoglobin of 13.2 and a platelet count of 232. Normal coagulation profile. BUN is at 15 with a creatinine of 0.7 and a sodium levels at 135. Currently she is on assist-control mode of mechanical aditi tilation with a rate of 16, tidal volume of 450, FiO2 of 50% with a PEEP of 5. The blood gas showed a pH of 7.44 with a pCO2 of 41 and pO2 of 361 and this was on FiO2 of 100% post intubation. The liver function tests are showing an AST of 30, ALT of 37, alk phos is 188, ammonia level is less than 9, CPK 59. Troponins are negative. UA is negative. Urine drug screen is positive for tricyclic's and amphetamine and marijuana. Alcohol level is less than 10. No significant acidosis. Serum bicarb is at 30, potassium level 4.7 and sodium levels at 135. Normal coagulation profile. Chest x-ray post intubation showed some mild pulm vascular congestion. No airspace disease or consolidation. There is some limited patchy perihilar infiltrates on the right probably related to the deep ET tube that was retracted and subsequent chest x-ray showed no change in the patchy bilateral airspace opacities. Hemodynamically stable. Pierson catheter is in place. Urine output is adequate. IV fluids are in the form of normal saline at rate of 120 cc an hour. Patient evaluated today on 06/09/2023, patient is intubated and mechanically ventilated. She is on assist-control rate 16 tidal volume 450 FiO2 40% and PEEP of 5, ABG this morning showed a pO2 of 175 pCO2 42 pH of 7.45 hence FiO2 was cut down to 35%. Patient is requiring propofol at 75 mcg/kg/min she is also on Versed 5 mg/h 0.9 normal saline at 125 cc/h and I cut it down to 75 patient is on Unasyn empirically, she is also on Lovenox for DVT prophylaxis, patient is positive for amphetamine, tricyclic's, marijuana, neurology consultation is pending.The workup is nondiagnostic, and could not explain her episode of unresponsiveness, labs were reviewed, drug screen was reviewed CT angiogram showed no acute findings in the arteries of the neck CT of the brain showed a left parietal scalp hematoma and no intracranial process noted patient remains unresponsive to any stimuli, her pupils are equally reactive to light. Reevaluated today on 06/10/2023, patient is intubated and mechanically ventilated, on assist-control rate of 16 tidal volume 450 FiO2 35% and PEEP of 5, ABG showed a pO2 of 124 pCO2 41 pH of 7.46. Patient remains on 35% FiO2. Patient is receiving propofol at 40 mcg/kg/min she is also on Versed at 1 mg/h. CT of the brain showed soft tissue/scalp left parietal swelling patient remains on Unasyn empirically for presumptive aspiration, possible aspiration pneumonia patient remains a bit restless, does not follow any commands, her EEG showed no evidence of seizures. Neurology is feeling that the patient most likely had acute toxic metabolic encephalopathy, now I am wondering if the patient had very low blood pressure when she fell and she passed out, may have developed some anoxic brain injury. In the meantime we are continuing supportive care measures including ventilatory support, nutritional support, antibiotics for presumptive aspiration, and mostly supportive care measures. Including GI and DVT prophylaxis, and checking daily labs. And daily x-rays of the chest. Chest x- ray today showed bilateral patchy airspace opacities, most likely consistent with aspiration pneumonia. WBC count today is 4.7 hemoglobin is 11.7. Basic metabolic profile is normal, renal profile is normal Objective - Vital Signs Vital signs: Vital Signs Temp 99 F 06/10/23 04:00 Pulse 73 06/10/23 13:00 Resp 16 06/10/23 13:00 BP 122/68 06/10/23 13:00 Pulse Ox 98 06/10/23 13:00 FiO2 35 06/10/23 12:00 Intake & Output 06/09/23 06/10/23 06/10/23 18:59 06:59 18:59 Intake Total 2075.534 1978.939 9732.159 Output Total 4560 340 203 Balance -2484.466 1543.537 809.159 Weight 142.7 kg 148 kg Intake: IV 1410 925 525 Ampicillin-Sulbactam 3 gm 300 100 In Sodium Chloride 0.9% 100 ml @ 200 mls/hr IVPB Q6HR [facility] Rx#:[id number] Sodium Chloride 0.9% 1, 1110 825 525 000 ml @ 75 mls/hr IV . [id number] [facility] Rx#:[id number] Intake, IV Titration 531.534 681.537 243.159 Amount Midazolam HCl 50 mg In 50.533 114.733 66.367 Sodium Chloride 0.9% 40 ml @ 1 MG/HR 1 mls/hr IV .Q24H [facility] Rx#:[id number] propofoL 1,000 mg In 481.001 566.804 176.792 Empty Bag 1 bag @ 15 MCG/ KG/MIN 11.839 mls/hr IV . [id number] [facility] Rx#:[id number] Oral 60 Tube Feeding 44 187 154 Other 30 90 90 Output: Gastric Drainage 250 Urine 4310 340 203 Other: Voiding Method Indwelling Catheter Indwelling Catheter Indwelling Catheter - Exam General: Reveals a 52-year-old female intubated mechanically ventilated not in distress seems to be calm. However requiring significant amount of sedation including Versed and propofol. Patient is receiving Dilaudid as needed Skin: Skin is warm and dry and no rashes or lesions are noted. Eye: Pupils are equal, round and reactive to light Ears, nose, mouth and throat: There are moist mucous membranes and no oral lesions. Tracheal tube and orogastric tube are intact. Neck: The neck is supple, there is no tenderness or JVD. Cardiovascular: Distant S1-S2, no S3 gallop. Respiratory: Symmetrical chest expansion clear breath sound bilaterally Gastrointestinal: Soft, non-distended, non-tender abdomen without masses or organomegaly noted. There is no rebound or guarding present. Bowel sounds are unremarkable. Back: There is no tenderness to palpation in the midline. There is no obvious deformity. Musculoskeletal: Normal ROM, no tenderness, There is no pedal edema. There is no calf tenderness or swelling. No cords were appreciated. Neurological: Could not fully assess, patient is requiring propofol and Versed Psychiatric: Could not assess - Labs CBC & Chem 7: 06/10/23 06:02 06/10/23 06:02 Labs: Abnormal Lab Results - Last 24 Hours (Table) 06/10/23 06/10/23 06/10/23 Range/Units 05:57 06:02 06:02 WBC 12.7 H (3.8-10.6) k/uL RBC 3.68 L (3.80-5.40) m/uL MCV 100.3 H (80.0-100.0) fL Neutrophils # 10.8 H (1.3-7.7) k/uL Lymphocytes # 0.9 L (1.0-4.8) k/uL ABG pH 7.46 H (7.35-7.45) ABG pO2 124 H (83-108) mmHg ABG HCO3 29 H (21-25) mmol/L ABG Total CO2 30 H (19-24) mmol/L ABG O2 Saturation 98.0 H (94-97) % Sodium 133 L (137-145) mmol/L Creatinine 0.50 L (0.52-1.04) mg/dL Glucose 101 H (74-99) mg/dL POC Glucose (mg/dL) (70-110) mg/dL Calcium 8.2 L (8.4-10.2) mg/dL 06/10/23 06/10/23 Range/Units 06:09 11:51 WBC (3.8-10.6) k/uL RBC (3.80-5.40) m/uL MCV (80.0-100.0) fL Neutrophils # (1.3-7.7) k/uL Lymphocytes # (1.0-4.8) k/uL ABG pH (7.35-7.45) ABG pO2 (83-108) mmHg ABG HCO3 (21-25) mmol/L ABG Total CO2 (19-24) mmol/L ABG O2 Saturation (94-97) % Sodium (137-145) mmol/L Creatinine (0.52-1.04) mg/dL Glucose (74-99) mg/dL POC Glucose (mg/dL) 115 H 123 H (70-110) mg/dL Calcium (8.4-10.2) mg/dL Microbiology - Last 24 Hours (Table) 06/09/23 04:09 Blood Culture - Preliminary Blood 06/08/23 23:55 Gram Stain - Preliminary Sputum Assessment and Plan Assessment: Impression: Acute mental status change exact etiology remains unclear, suspect acute toxic metabolic encephalopathy, possible anoxic brain injury Intubation to protect airways, patient was not hypoxic or hypercapnic and intubation was mostly done for airways protection Morbid obesity Perihilar patchy infiltrates, possible aspiration pneumonia, remains empirically on Zosyn Positive drug screen and urine Scalp hematoma secondary to fall EEG basically ruled out seizure activity Recommendation: Continue ventilatory support Continue antibiotics for aspiration. Patient is receiving Unasyn. Neurology input was appreciated Continue aspirin Continue GI and DVT prophylaxis Nutritional support/enteral feeding Patient is not requiring any hemodynamic support at present Continue IV Lovenox and IV Protonix Patient is critically ill. Critical care time is over 30 minutes, Will continue to follow Time with Patient: Greater than 30
[2023-06-10] MEDS: MIDAZOLAM HCL 200 MG in SODIUM CHLORIDE 0.9% 60 ML IV SCH (16:05)
[2023-06-10 16:45] LABS: Chol/HDL Ratio 3.45 Ratio; LDL Cholesterol,Calculated 68.8 mg/dL (0.0-131.0)
[2023-06-10 17:50] LABS: Glucose,Whole Blood 116 mg/dL (70-110)
[2023-06-11 00:02] LABS: Glucose,Whole Blood 103 mg/dL (70-110)
[2023-06-11 06:10] LABS: ABG Base Excess 5.8 mmol/L; ABG HCO3 29 mmol/L (21-25); ABG Oxygen Saturation 99.9 % (94-97); ABG PCO2 40 mmHg (35-45); ABG PH 7.48 (7.35-7.45); ABG PO2 134 mmHg (83-108); ABG TCO2 31 mmol/L (19-24); Allen Test Performed? Yes
[2023-06-11 06:30] LABS: Glucose,Whole Blood 82 mg/dL (70-110)
[2023-06-11 06:57] LABS: Basophils % (A) 0 %; Eosinophils # (A) 0.1 k/uL (0-0.7); Eosinophils % (A) 1 %; HCT 37.4 % (34.0-46.0); HGB 12.4 gm/dL (11.4-16.0); Lymphocytes # (A) 1.6 k/uL (1.0-4.8); Lymphocytes % (A) 16 %; MCH 32.5 pg (25.0-35.0); MCHC 33.1 g/dL (31.0-37.0); MCV 98.2 fL (80.0-100.0); Mean Platelet Volume 8.4; Monocytes # (A) 0.6 k/uL (0-1.0); Monocytes % (A) 6 %; Neutrophils # (A) 7.6 k/uL (1.3-7.7); Neutrophils % (A) 75 %; Platelet Count 191 k/uL (150-450); RBC 3.82 m/uL (3.80-5.40); RDW 12.3 % (11.5-15.5)
[2023-06-11 07:22] LABS: African American GFR (CKD) >90 (>60 ml/min/1.73 sqM); Anion Gap 7 mmol/L; Blood Urea Nitrogen 9 mg/dL (7-17); Calcium 8.2 mg/dL (8.4-10.2); Carbon Dioxide 24 mmol/L (22-30); Chloride 101 mmol/L (98-107); Glucose 92 mg/dL (74-99); Non-African American GFR(CKD) >90 (>60 ml/min/1.73 sqM); Potassium 3.3 mmol/L (3.5-5.1); Sodium 132 mmol/L (137-145)
--- NOTE | 2023-06-11 08:33 | XR ---
EXAMINATION TYPE: XR chest 1V portable DATE OF EXAM: 06/11/2023 COMPARISON: 06/10/2023 INDICATION: Tube placement TECHNIQUE: Single frontal view of the chest is obtained. FINDINGS: The heart size is normal. The pulmonary vasculature is normal. Right lower lobe infiltrate is present. Endotracheal tube tip is above the phill. Nasogastric tube tip is within the left upper quadrant of the abdomen. IMPRESSION: 1. Right lower lobe infiltrate. Correlate for pneumonia. 2. Lines and catheters discussed above
[2023-06-11] MEDS: POTASSIUM BICARBONATE/CIT AC 20 MEQ TABLET.EFF NG-TUBE SCH ×2 (08:36→13:16)
--- NOTE | 2023-06-11 09:06 | EEG ---
ELECTROENCEPHALOGRAM REPORT PREAMBLE: This is a 52-year-old female who came to the ED after she was found to be face down in her bathroom by her boyfriend. When the patient arrived to the ED, she was obtunded, initial NIH stroke scale of 14. The patient is currently on ampicillin/sulbactam, aspirin, Protonix, propofol, and Versed. Patient is unresponsive. EEG FINDINGS: This is a 21-channel portable EEG recorded with video component, utilizing 10/20 international system with referential and bipolar montages. The patient was restless during later part of the study. The recording starts and continues with presence of diffuse moderate amplitude mixed frequencies of delta and theta activity seen in bihemispheric region. Intermittent periods of suppression for 1 second were also seen. Different stages of sleep were not seen. Photic driving response was not seen. No focal or generalized epileptiform activity was seen. IMPRESSION: This is an abnormal EEG due to background slowing, with some periods of suppression, suggestive of generalized cerebral dysfunction as can be seen with toxic metabolic encephalopathy or related to diffuse structural brain abnormality or medication effect. No epileptiform activity was seen. No electrographic seizure was recorded. MMODL / IJN: [id number] / MTDD
[2023-06-11] MEDS: CISATRACURIUM 2 MG/ML 5 ML VIAL IV ONE (09:57)
[2023-06-11 12:03] LABS: Glucose,Whole Blood 114 mg/dL (70-110)
[2023-06-11 12:07] LABS: Potassium 3.7 mmol/L (3.5-5.1)
--- NOTE | 2023-06-11 13:25 | P.PN ---
Subjective Progress Note Date: 06/11/23 patient is a 52-year-old lady with no significant past medical history brought to the ER for altered mental status and fall. History is limited and most of it is obtained from electronic medical records. According to them patient was found lying facedown on the floor of the restroom by her boyfriend. Patient was not responsive, EMS was called and when they arrived at the spot patient was found to be obtunded. Patient was found to have shallow breaths and minimally responsive. Patient was immediately transferred to the ER. Initial lab work done in the ER showed WBC 8.1, hemoglobin 13.2, platelet count 232, sodium 135, potassium 4.7, BUN 15, creatinine 0.73 UA was negative for any infection Urine drug screen was positive for barbiturates, amphetamines, marijuana. Initial NIH score was 14. Code stroke was called and immediate CT of the head was done that showed left parietal scalp hematoma. CT angiogram was negative for any occlusion of major vessels of head and neck. ER physician discussed with on-call interventional neurologist, patient was deemed not a candidate for thrombolytic therapy Patient was intubated in the ER and was transferred to ICU 06/09. Patient seen and examined.Blood work done this morning showed WBC 12.7, hemoglobin 0.7, platelet count 182, sodium 133, potassium 3.7, BUN 10, creatinine 0.50, glucose 115. EEG was performed, which was abnormal due to background slowing of moderate to severe degree, suggestive of generalized cerebral dysfunction as can be seen with toxic metabolic encephalopathy or related to diffuse structural brain abn ormality. No epileptiform activity was seen. 06/10. Patient seen and examined. Blood work done this morning showed WBC 10, hemoglobin 12.4, platelet count 191, sodium 132, potassium 3.3, BUN 9, cre atinine 0.45, Continues to be intubated. REVIEW OF SYSTEMS: Currently intubated and sedated PHYSICAL EXAMINATION: GENERAL: The patient is intubated, not in any acute distress. Well developed, we ll nourished. HEENT: Pupils are round and equally reacting to light. EOMI. No scleral icterus. CARDIOVASCULAR: S1 and S2 present. No murmurs, rubs, or gallops. PULMONARY: Chest is clear to auscultation, no wheezing or crackles. ABDOMEN: Soft, nontender, nondistended, normoactive bowel sounds. No palpable organomegaly. MUSCULOSKELETAL: No joint swelling or deformity. EXTREMITIES: No cyanosis, clubbing, or pedal edema. NEUROLOGICAL: Intubated and sedated SKIN: No rashes. Assessment and plan Acute metabolic encephalopathy Acute hypoxic respiratory failure Polysubstance abuse Morbid obesity Monitor vital signs Monitor CBC Monitor CMP Continue vent management per ICU Aggressive bronchopulmonary hygiene Continue IV Unasyn EEG was performed, which was abnormal due to background slowing of moderate to severe degree, suggestive of generalized cerebral dysfunction as can be seen with toxic metabolic encephalopathy or related to diffuse structural brain abnormality. No epileptiform activity was seen. Repeat CT scan of the brain on 06/08 showed no acute abnormality 2D echo revealed mild left ventricular dysfunction. LVEF 45 to 50%. Severely increased left ventricular diastolic volume. Severely increased left ventricular systolic volume. Global hypokinesis with regional variability. Moderately increased left atrial volume. No valvular abnormalities. Neurology following ICU following Labs and medication were reviewed.. Continue same treatment. Continue with symptomatic treatment. Resume home medication. Monitor labs and vitals. DVT and GI prophylaxis. Further recommendations as per clinical course of the patient Dictation was produced using [email or web address] dictation software. please excuse any grammatical, word or spelling errors. Objective - Vital Signs Vital signs: Vital Signs Temp 98.0 F 06/11/23 12:00 Pulse 62 06/11/23 13:00 Resp 16 06/11/23 13:00 BP 121/78 06/11/23 13:00 Pulse Ox 100 06/11/23 12:30 FiO2 35 06/11/23 12:00 Intake & Output 06/10/23 06/11/23 06/11/23 18:59 06:59 18:59 Intake Total 7886.124 7004.633 1162.433 Output Total 372 290 220 Balance 8153.762 1881.633 942.433 Weight 149 kg Intake: IV 900 925 725 Ampicillin-Sulbactam 3 gm 100 200 In Sodium Chloride 0.9% 100 ml @ 200 mls/hr IVPB Q6HR [facility] Rx#:[id number] Sodium Chloride 0.9% 1, 900 825 525 000 ml @ 75 mls/hr IV . [id number] [facility] Rx#:[id number] Intake, IV Titration 370.444 321.633 223.433 Amount Midazolam HCl 200 mg In 0.275 58.65 27.300 Sodium Chloride 0.9% 60 ml @ 11 MG/HR 5.5 mls/hr IV .[id number] [facility] Rx#: [id number] Midazolam HCl 50 mg In 94.034 Sodium Chloride 0.9% 40 ml @ 1 MG/HR 1 mls/hr IV .Q24H [facility] Rx#:[id number] propofoL 1,000 mg In 276.135 262.983 196.133 Empty Bag 1 bag @ 15 MCG/ KG/MIN 11.839 mls/hr IV . Q8H27M [facility] Rx#:[id number] Tube Feeding 264 264 154 Other 90 90 60 Output: Urine 372 290 220 Other: Voiding Method Indwelling Catheter Indwelling Catheter Indwelling Catheter ABP, PAP, CO, CI - Last Documented Arterial Blood Pressure 133/71 - Labs CBC & Chem 7: 06/11/23 05:42 06/11/23 11:38 Labs: Abnormal Lab Results - Last 24 Hours (Table) 06/10/23 06/10/23 06/11/23 Range/Units 06:09 17:48 05:42 ABG pH (7.35-7.45) ABG pO2 (83-108) mmHg ABG HCO3 (21-25) mmol/L ABG Total CO2 (19-24) mmol/L ABG O2 Saturation (94-97) % Sodium 132 L (137-145) mmol/L Potassium 3.3 L (3.5-5.1) mmol/L Creatinine 0.45 L (0.52-1.04) mg/dL POC Glucose (mg/dL) 116 H (70-110) mg/dL Calcium 8.2 L (8.4-10.2) mg/dL Triglycerides 224.00 H (0.00-149.00) mg/dL VLDL Cholesterol, Calc 44.80 H (5.00-40.00) mg/dL 06/11/23 06/11/23 Range/Units 06:01 12:01 ABG pH 7.48 H (7.35-7.45) ABG pO2 134 H (83-108) mmHg ABG HCO3 29 H (21-25) mmol/L ABG Total CO2 31 H (19-24) mmol/L ABG O2 Saturation 99.9 H (94-97) % Sodium (137-145) mmol/L Potassium (3.5-5.1) mmol/L Creatinine (0.52-1.04) mg/dL POC Glucose (mg/dL) 114 H (70-110) mg/dL Calcium (8.4-10.2) mg/dL Triglycerides (0.00-149.00) mg/dL VLDL Cholesterol, Calc (5.00-40.00) mg/dL Microbiology - Last 24 Hours (Table) 06/09/23 04:09 Blood Culture - Preliminary Blood 06/08/23 23:55 Gram Stain - Final Sputum Sputum Culture - Final
[2023-06-11] MEDS: IPRATROPIUM-ALBUTEROL 3 ML NEB INHALATION SCH (13:37)
--- NOTE | 2023-06-11 13:38 | P.PN ---
Subjective Progress Note Date: 06/11/23 Principal diagnosis: Acute mental status change, unresponsiveness, requiring intubation mechanical ventilation mostly to protect airways 52-year-old morbidly obese female patient, came into the emergency department after the patient was found to be face down in the bathroom by her boyfriend. Unfortunately, not a whole lot of history is available on this patient's presentation. She was last seen normal approximately 1-1/2 to 2 hours ago by the boyfriend. The fire department came to her but bathroom and after extensive manipulation she was able to be moved out and brought into the hospital. In the emergency, the patient was obtunded, not protecting her airways and she had an initial NIH score of 14. Code stroke was declared. The patient was further evaluated by emergency department physician and neuro interventionalists. A CT scan of the brain was done that showed left parietal scalp hematoma without any other acute abnormalities. CT angiogram was also done that showed no occlusion of the major arteries. No aneurysm identified. Based on that, the patient was not given thrombolytics and she was not found to be a candidate for thrombolysis. Subsequently, the patient was intubated and placed on mechanical ventilator and she was moved to the intensive care unit. At this point in time, the patient is on propofol which is running at 40 mcg/kg/min. She grimaces to deep painful stimulation. She is hemodynamically stable and she is afebrile. No seizure activity has been noted. No neck stiffness. No fever. The white cell count is at 8.1 with a hemoglobin of 13.2 and a platelet count of 232. Normal coagulation profile. BUN is at 15 with a creatinine of 0.7 and a sodium levels at 135. Currently she is on assist-control mode of mechanical aditi tilation with a rate of 16, tidal volume of 450, FiO2 of 50% with a PEEP of 5. The blood gas showed a pH of 7.44 with a pCO2 of 41 and pO2 of 361 and this was on FiO2 of 100% post intubation. The liver function tests are showing an AST of 30, ALT of 37, alk phos is 188, ammonia level is less than 9, CPK 59. Troponins are negative. UA is negative. Urine drug screen is positive for tricyclic's and amphetamine and marijuana. Alcohol level is less than 10. No significant acidosis. Serum bicarb is at 30, potassium level 4.7 and sodium levels at 135. Normal coagulation profile. Chest x-ray post intubation showed some mild pulm vascular congestion. No airspace disease or consolidation. There is some limited patchy perihilar infiltrates on the right probably related to the deep ET tube that was retracted and subsequent chest x-ray showed no change in the patchy bilateral airspace opacities. Hemodynamically stable. Pierson catheter is in place. Urine output is adequate. IV fluids are in the form of normal saline at rate of 120 cc an hour. Patient evaluated today on 06/09/2023, patient is intubated and mechanically ventilated. She is on assist-control rate 16 tidal volume 450 FiO2 40% and PEEP of 5, ABG this morning showed a pO2 of 175 pCO2 42 pH of 7.45 hence FiO2 was cut down to 35%. Patient is requiring propofol at 75 mcg/kg/min she is also on Versed 5 mg/h 0.9 normal saline at 125 cc/h and I cut it down to 75 patient is on Unasyn empirically, she is also on Lovenox for DVT prophylaxis, patient is positive for amphetamine, tricyclic's, marijuana, neurology consultation is pending.The workup is nondiagnostic, and could not explain her episode of unresponsiveness, labs were reviewed, drug screen was reviewed CT angiogram showed no acute findings in the arteries of the neck CT of the brain showed a left parietal scalp hematoma and no intracranial process noted patient remains unresponsive to any stimuli, her pupils are equally reactive to light. Reevaluated today on 06/10/2023, patient is intubated and mechanically ventilated, on assist-control rate of 16 tidal volume 450 FiO2 35% and PEEP of 5, ABG showed a pO2 of 124 pCO2 41 pH of 7.46. Patient remains on 35% FiO2. Patient is receiving propofol at 40 mcg/kg/min she is also on Versed at 1 mg/h. CT of the brain showed soft tissue/scalp left parietal swelling patient remains on Unasyn empirically for presumptive aspiration, possible aspiration pneumonia patient remains a bit restless, does not follow any commands, her EEG showed no evidence of seizures. Neurology is feeling that the patient most likely had acute toxic metabolic encephalopathy, now I am wondering if the patient had very low blood pressure when she fell and she passed out, may have developed some anoxic brain injury. In the meantime we are continuing supportive care measures including ventilatory support, nutritional support, antibiotics for presumptive aspiration, and mostly supportive care measures. Including GI and DVT prophylaxis, and checking daily labs. And daily x-rays of the chest. Chest x- ray today showed bilateral patchy airspace opacities, most likely consistent with aspiration pneumonia. WBC count today is 4.7 hemoglobin is 11.7. Basic metabolic profile is normal, renal profile is normal Patient was reevaluated today on 06/11/2023 remains in the ICU, intubated and mechanically ventilated. She is on assist-control rate of 16 tidal volume 450 FiO2 35% PEEP of 5 ABG showed a pO2 of 134 pCO2 40 pH of 7.48, hence no changes were made in vent settings. Chest x-ray is showing mostly bibasilar infiltrates right more so than left, suspicious for aspiration pneumonia. WBC count today is 10 hemoglobin 12.4 platelets are 191. Basic metabolic profile is normal except for low potassium being addressed and treated accordingly.Renal profile is normal with BUN of 9 creatinine 0.45.Blood cultures and sputum cultures have been negative since admission. Clinically the patient is the same, she moves her head right and left, no purposeful movement noted. Patient withdraws to deep painful stimuli, otherwise no other neurological responses are noted. Pupils are equal and reactive to light. Objective - Vital Signs Vital signs: Vital Signs Temp 98.0 F 06/11/23 12:00 Pulse 62 06/11/23 13:00 Resp 16 06/11/23 13:00 BP 121/78 06/11/23 13:00 Pulse Ox 100 06/11/23 12:30 FiO2 35 06/11/23 12:00 Intake & Output 06/10/23 06/11/23 06/11/23 18:59 06:59 18:59 Intake Total 1002.630 2975.633 1162.433 Output Total 372 290 220 Balance 7829.095 9798.633 942.433 Weight 149 kg Intake: IV 900 925 725 Ampicillin-Sulbactam 3 gm 100 200 In Sodium Chloride 0.9% 100 ml @ 200 mls/hr IVPB Q6HR [facility] Rx#:[id number] Sodium Chloride 0.9% 1, 900 825 525 000 ml @ 75 mls/hr IV . [id number] [facility] Rx#:[id number] Intake, IV Titration 370.444 321.633 223.433 Amount Midazolam HCl 200 mg In 0.275 58.65 27.300 Sodium Chloride 0.9% 60 ml @ 11 MG/HR 5.5 mls/hr IV .[id number] [facility] Rx#: [id number] Midazolam HCl 50 mg In 94.034 Sodium Chloride 0.9% 40 ml @ 1 MG/HR 1 mls/hr IV .Q24H [facility] Rx#:[id number] propofoL 1,000 mg In 276.135 262.983 196.133 Empty Bag 1 bag @ 15 MCG/ KG/MIN 11.839 mls/hr IV . Q8H27M [facility] Rx#:[id number] Tube Feeding 264 264 154 Other 90 90 60 Output: Urine 372 290 220 Other: Voiding Method Indwelling Catheter Indwelling Catheter Indwelling Catheter ABP, PAP, CO, CI - Last Documented Arterial Blood Pressure 133/71 - Exam General: Reveals a 52-year-old female intubated mechanically ventilated not in distress seems to be calm. Patient is requiring propofol 30 mg/kg/min Versed 6 mg/h, to keep calm and less restless and agitated Skin: Skin is warm and dry and no rashes or lesions are noted. Eye: Pupils are equal, round and reactive to light Ears, nose, mouth and throat: There are moist mucous membranes and no oral lesions. Tracheal tube and orogastric tube are intact. Neck: The neck is supple, there is no tenderness or JVD. Cardiovascular: Distant S1-S2, no S3 gallop. Respiratory: Symmetrical chest expansion clear breath sound bilaterally Gastrointestinal: Soft, non-distended, non-tender abdomen without masses or organomegaly noted. There is no rebound or guarding present. Bowel sounds are unremarkable. Back: There is no tenderness to palpation in the midline. There is no obvious deformity. Musculoskeletal: Normal ROM, no tenderness, There is no pedal edema. There is no calf tenderness or swelling. No cords were appreciated. Neurological: Could not fully assess, patient is requiring propofol and Versed, as noted above. Psychiatric: Could not assess - Labs CBC & Chem 7: 06/11/23 05:42 06/11/23 11:38 Labs: Abnormal Lab Results - Last 24 Hours (Table) 06/10/23 06/10/23 06/11/23 Range/Units 06:09 17:48 05:42 ABG pH (7.35-7.45) ABG pO2 (83-108) mmHg ABG HCO3 (21-25) mmol/L ABG Total CO2 (19-24) mmol/L ABG O2 Saturation (94-97) % Sodium 132 L (137-145) mmol/L Potassium 3.3 L (3.5-5.1) mmol/L Creatinine 0.45 L (0.52-1.04) mg/dL POC Glucose (mg/dL) 116 H (70-110) mg/dL Calcium 8.2 L (8.4-10.2) mg/dL Triglycerides 224.00 H (0.00-149.00) mg/dL VLDL Cholesterol, Calc 44.80 H (5.00-40.00) mg/dL 06/11/23 06/11/23 Range/Units 06:01 12:01 ABG pH 7.48 H (7.35-7.45) ABG pO2 134 H (83-108) mmHg ABG HCO3 29 H (21-25) mmol/L ABG Total CO2 31 H (19-24) mmol/L ABG O2 Saturation 99.9 H (94-97) % Sodium (137-145) mmol/L Potassium (3.5-5.1) mmol/L Creatinine (0.52-1.04) mg/dL POC Glucose (mg/dL) 114 H (70-110) mg/dL Calcium (8.4-10.2) mg/dL Triglycerides (0.00-149.00) mg/dL VLDL Cholesterol, Calc (5.00-40.00) mg/dL Microbiology - Last 24 Hours (Table) 06/09/23 04:09 Blood Culture - Preliminary Blood 06/08/23 23:55 Gram Stain - Final Sputum Sputum Culture - Final Assessment and Plan Assessment: Impression: Acute mental status change exact etiology remains unclear, suspect acute toxic metabolic encephalopathy, possible anoxic brain injury Intubation to protect airways, patient was not hypoxic or hypercapnic and intubation was mostly done for airways protection Morbid obesity Perihilar patchy infiltrates, possible aspiration pneumonia, remains empirically on Zosyn Positive drug screen and urine Scalp hematoma secondary to fall EEG basically ruled out seizure activity Recommendation: Try to hold sedation today and assess mental status off sedation as seeming the patient does not get extremely agitated and restless off sedation. Continue ventilatory support Continue antibiotics for aspiration. Chest x-ray is showing some improvement Continue aspirin Continue GI and DVT prophylaxis Continue enteral feeding presently on vital HP at Patient is not requiring any hemodynamic support at present, however considering the patient is requiring frequent blood draws, a left brachial arterial line was placed, may or may not require a central line apparently not necessary at this point now Continue IV Lovenox and IV Protonix Patient is critically ill. Critical care time is over 30 minutes, Will continue to follow Time with Patient: Greater than 30
[2023-06-11 18:04] LABS: Glucose,Whole Blood 91 mg/dL (70-110)
--- NOTE | 2023-06-11 19:21 | OP ---
OPERATIVE REPORT DATE OF SERVICE : PROCEDURE: Placement of a left brachial arterial line. PREOPERATIVE DIAGNOSIS: Acute respiratory failure. POSTOPERATIVE DIAGNOSIS: Acute respiratory failure. ANESTHESIA USED: None deployed. DESCRIPTION OF PROCEDURE: The patient was placed in the supine position, the left brachial region was prepared in a sterile fashion. Drapes were applied. The left brachial artery was palpated, cannulated, and a guidewire was placed. A Cook's catheter was inserted with a guidewire and the guidewire was removed. Good blood flow, good waveform, no complications. Line was secured using 3-0 silk sutures. MMODL / IJN: [id number] /
[2023-06-12 01:27] LABS: Glucose,Whole Blood 100 mg/dL (70-110)
[2023-06-12 04:38] LABS: Basophils % (A) 0 %; Eosinophils # (A) 0.1 k/uL (0-0.7); Eosinophils % (A) 2 %; HCT 33.8 % (34.0-46.0); HGB 11.1 gm/dL (11.4-16.0); Lymphocytes # (A) 1.8 k/uL (1.0-4.8); Lymphocytes % (A) 22 %; MCHC 32.7 g/dL (31.0-37.0); MCV 97.7 fL (80.0-100.0); Mean Platelet Volume 7.9; Monocytes # (A) 0.5 k/uL (0-1.0); Monocytes % (A) 6 %; Neutrophils # (A) 5.3 k/uL (1.3-7.7); Neutrophils % (A) 68 %; Platelet Count 215 k/uL (150-450); RBC 3.46 m/uL (3.80-5.40); RDW 12.1 % (11.5-15.5); WBC 7.9 k/uL (3.8-10.6)
[2023-06-12 04:57] LABS: African American GFR (CKD) >90 (>60 ml/min/1.73 sqM); Anion Gap 2 mmol/L; Blood Urea Nitrogen 10 mg/dL (7-17); Calcium 8.1 mg/dL (8.4-10.2); Carbon Dioxide 28 mmol/L (22-30); Chloride 102 mmol/L (98-107); Glucose 109 mg/dL (74-99); Non-African American GFR(CKD) >90 (>60 ml/min/1.73 sqM); Potassium 3.7 mmol/L (3.5-5.1); Sodium 132 mmol/L (137-145)
[2023-06-12] MEDS: POTASSIUM BICARBONATE/CIT AC 20 MEQ TABLET.EFF NG-TUBE SCH (05:56)
[2023-06-12 06:27] LABS: ABG Base Excess 3.6 mmol/L; ABG HCO3 29 mmol/L (21-25); ABG Oxygen Saturation 99.1 % (94-97); ABG PCO2 47 mmHg (35-45); ABG PH 7.39 (7.35-7.45); ABG PO2 119 mmHg (83-108); ABG TCO2 30 mmol/L (19-24); Allen Test Performed? Yes
[2023-06-12 06:49] LABS: Glucose,Whole Blood 134 mg/dL (70-110)
--- NOTE | 2023-06-12 11:48 | P.PN ---
Subjective Progress Note Date: 06/11/23 Patient was seen for a follow-up. Patient is on propofol 30 mcg/kg/min. Also on Versed 5 mg/h. Patient also on normal saline at 75 cc/h. Patient not able to be extubated today. Per nursing report she is not following commands, does not open her eyes but does move extremities and respond to pain. She does do facial grimacing. Patient is currently on Unasyn for possible pneumonia. Objective - Vital Signs Vital signs: Vital Signs Temp 98.0 F 06/11/23 12:00 Pulse 82 06/11/23 15:19 Resp 16 06/11/23 14:00 BP 124/85 06/11/23 14:00 Pulse Ox 100 06/11/23 13:30 FiO2 35 06/11/23 15:09 Intake & Output 06/10/23 06/11/23 06/11/23 18:59 06:59 18:59 Intake Total 0254.501 4525.633 1259.433 Output Total 372 290 260 Balance 2141.803 1161.633 999.433 Weight 149 kg 149 kg Intake: IV 900 925 800 Ampicillin-Sulbactam 3 gm 100 200 In Sodium Chloride 0.9% 100 ml @ 200 mls/hr IVPB Q6HR [facility] Rx#:[id number] Sodium Chloride 0.9% 1, 900 825 600 000 ml @ 75 mls/hr IV . [id number] [facility] Rx#:[id number] Intake, IV Titration 370.444 321.633 223.433 Amount Midazolam HCl 200 mg In 0.275 58.65 27.300 Sodium Chloride 0.9% 60 ml @ 11 MG/HR 5.5 mls/hr IV .[id number] [facility] Rx#: [id number] Midazolam HCl 50 mg In 94.034 Sodium Chloride 0.9% 40 ml @ 1 MG/HR 1 mls/hr IV .Q24H [facility] Rx#:[id number] propofoL 1,000 mg In 276.135 262.983 196.133 Empty Bag 1 bag @ 15 MCG/ KG/MIN 11.839 mls/hr IV . Q8H27M [facility] Rx#:[id number] Tube Feeding 264 264 176 Other 90 90 60 Output: Urine 372 290 260 Other: Voiding Method Indwelling Catheter Indwelling Catheter Indwelling Catheter ABP, PAP, CO, CI - Last Documented Arterial Blood Pressure 136/71 - Exam On examination patient is intubated, sedated on propofol 30 mcg/kg/min and Versed 5 mg/h. Patient's pupils are equal, round and reactive to light. Oculocephalics are absent, but she did feel it and resisted for passive head movement after couple times. Corneals are present. Patient has a good gag and cough. Patient withdraws very well to painful stimuli in all 4 extremities. She has very appropriate facial grimacing. - Labs CBC & Chem 7: 06/12/23 04:25 06/12/23 04:25 Labs: Abnormal Lab Results - Last 24 Hours (Table) 06/10/23 06/10/23 06/11/23 Range/Units 06:09 17:48 05:42 ABG pH (7.35-7.45) ABG pO2 (83-108) mmHg ABG HCO3 (21-25) mmol/L ABG Total CO2 (19-24) mmol/L ABG O2 Saturation (94-97) % Sodium 132 L (137-145) mmol/L Potassium 3.3 L (3.5-5.1) mmol/L Creatinine 0.45 L (0.52-1.04) mg/dL POC Glucose (mg/dL) 116 H (70-110) mg/dL Calcium 8.2 L (8.4-10.2) mg/dL Triglycerides 224.00 H (0.00-149.00) mg/dL VLDL Cholesterol, Calc 44.80 H (5.00-40.00) mg/dL 06/11/23 06/11/23 Range/Units 06:01 12:01 ABG pH 7.48 H (7.35-7.45) ABG pO2 134 H (83-108) mmHg ABG HCO3 29 H (21-25) mmol/L ABG Total CO2 31 H (19-24) mmol/L ABG O2 Saturation 99.9 H (94-97) % Sodium (137-145) mmol/L Potassium (3.5-5.1) mmol/L Creatinine (0.52-1.04) mg/dL POC Glucose (mg/dL) 114 H (70-110) mg/dL Calcium (8.4-10.2) mg/dL Triglycerides (0.00-149.00) mg/dL VLDL Cholesterol, Calc (5.00-40.00) mg/dL Microbiology - Last 24 Hours (Table) 06/09/23 04:09 Blood Culture - Preliminary Blood 06/08/23 23:55 Gram Stain - Final Sputum Sputum Culture - Final Assessment and Plan Assessment: * Status post unwitnessed fall, followed by altered mental status, unclear cause. * Patient had agonal breathing when EMS arrived, intubated at the scene. Rule out hypoxic encephalopathy. * Probable aspiration pneumonia. Right lower lobe infiltrate. * Ventilator dependent respiratory failure, on mechanical ventilation. * Obesity * History of chronic pain. * History of marijuana use Plan: * EEG was abnormal due to background slowing of moderate to severe degree, suggestive of generalized cerebral dysfunction as can be seen with toxic metab olic encephalopathy or related to diffuse structural brain abnormality. No epileptiform activity was seen. * CTA of head and neck revealed no large vessel occlusion or aneurysm. No acute findings in the arteries of the neck. * Repeat CT head showed decreasing left parietal soft tissue swelling. No acute intracranial process. * 2D echo revealed mild left ventricular dysfunction. LVEF 45 to 50%. Severely increased left ventricular diastolic volume. Severely increased left ventricular systolic volume. Global hypokinesis with regional variability. Moderately increased left atrial volume. No valvular abnormalities. * Lipid panel cholesterol 160, LDL 68, HDL 46, triglycerides 224 * A1c 5.3. * Continue aspirin 81 mg daily. * Patient on Unasyn for possible pneumonia. * Medical management as per IM/ICU. * Patient is responding appropriately to painful stimuli. Consider weaning down sedatives. * DVT prophylaxis: Lovenox 40 mg subcu daily * We will follow clinically.
[2023-06-12 11:58] LABS: Glucose,Whole Blood 143 mg/dL (70-110)
--- NOTE | 2023-06-12 12:16 | XR ---
EXAMINATION TYPE: XR chest 1V portable DATE OF EXAM: 06/12/2023 Comparison: 06/11/2023 Clinical History: 52-year-old female Tube placement Findings: Slightly low for patient rotational just a normal cardiac and mediastinal contours. ET and NG tubes a re satisfactory. Heart borderline to mildly enlarged. Interstitial density. Perihilar opacity. Improv ing aeration at the right base. No sizable pleural effusion on the frontal view. Impression: Borderline to mild cardiomegaly. Slightly rotated exam. Correlate for possible mild pulmonary vascula r congestion. Residual opacity at the right base though improving from prior.
[2023-06-12] MEDS: MIDAZOLAM HCL 50 MG in SODIUM CHLORIDE 0.9% 40 ML IV SCH (12:38)
--- NOTE | 2023-06-12 12:48 | P.PN ---
Subjective Progress Note Date: 06/12/23 Principal diagnosis: Acute mental status change, unresponsiveness, requiring intubation mechanical ventilation mostly to protect airways 52-year-old morbidly obese female patient, came into the emergency department after the patient was found to be face down in the bathroom by her boyfriend. Unfortunately, not a whole lot of history is available on this patient's presentation. She was last seen normal approximately 1-1/2 to 2 hours ago by the boyfriend. The fire department came to her but bathroom and after extensive manipulation she was able to be moved out and brought into the hospital. In the emergency, the patient was obtunded, not protecting her airways and she had an initial NIH score of 14. Code stroke was declared. The patient was further evaluated by emergency department physician and neuro interventionalists. A CT scan of the brain was done that showed left parietal scalp hematoma without any other acute abnormalities. CT angiogram was also done that showed no occlusion of the major arteries. No aneurysm identified. Based on that, the patient was not given thrombolytics and she was not found to be a candidate for thrombolysis. Subsequently, the patient was intubated and placed on mechanical ventilator and she was moved to the intensive care unit. At this point in time, the patient is on propofol which is running at 40 mcg/kg/min. She grimaces to deep painful stimulation. She is hemodynamically stable and she is afebrile. No seizure activity has been noted. No neck stiffness. No fever. The white cell count is at 8.1 with a hemoglobin of 13.2 and a platelet count of 232. Normal coagulation profile. BUN is at 15 with a creatinine of 0.7 and a sodium levels at 135. Currently she is on assist-control mode of mechanical aditi tilation with a rate of 16, tidal volume of 450, FiO2 of 50% with a PEEP of 5. The blood gas showed a pH of 7.44 with a pCO2 of 41 and pO2 of 361 and this was on FiO2 of 100% post intubation. The liver function tests are showing an AST of 30, ALT of 37, alk phos is 188, ammonia level is less than 9, CPK 59. Troponins are negative. UA is negative. Urine drug screen is positive for tricyclic's and amphetamine and marijuana. Alcohol level is less than 10. No significant acidosis. Serum bicarb is at 30, potassium level 4.7 and sodium levels at 135. Normal coagulation profile. Chest x-ray post intubation showed some mild pulm vascular congestion. No airspace disease or consolidation. There is some limited patchy perihilar infiltrates on the right probably related to the deep ET tube that was retracted and subsequent chest x-ray showed no change in the patchy bilateral airspace opacities. Hemodynamically stable. Pierson catheter is in place. Urine output is adequate. IV fluids are in the form of normal saline at rate of 120 cc an hour. Patient evaluated today on 06/09/2023, patient is intubated and mechanically ventilated. She is on assist-control rate 16 tidal volume 450 FiO2 40% and PEEP of 5, ABG this morning showed a pO2 of 175 pCO2 42 pH of 7.45 hence FiO2 was cut down to 35%. Patient is requiring propofol at 75 mcg/kg/min she is also on Versed 5 mg/h 0.9 normal saline at 125 cc/h and I cut it down to 75 patient is on Unasyn empirically, she is also on Lovenox for DVT prophylaxis, patient is positive for amphetamine, tricyclic's, marijuana, neurology consultation is pending.The workup is nondiagnostic, and could not explain her episode of unresponsiveness, labs were reviewed, drug screen was reviewed CT angiogram showed no acute findings in the arteries of the neck CT of the brain showed a left parietal scalp hematoma and no intracranial process noted patient remains unresponsive to any stimuli, her pupils are equally reactive to light. Reevaluated today on 06/10/2023, patient is intubated and mechanically ventilated, on assist-control rate of 16 tidal volume 450 FiO2 35% and PEEP of 5, ABG showed a pO2 of 124 pCO2 41 pH of 7.46. Patient remains on 35% FiO2. Patient is receiving propofol at 40 mcg/kg/min she is also on Versed at 1 mg/h. CT of the brain showed soft tissue/scalp left parietal swelling patient remains on Unasyn empirically for presumptive aspiration, possible aspiration pneumonia patient remains a bit restless, does not follow any commands, her EEG showed no evidence of seizures. Neurology is feeling that the patient most likely had acute toxic metabolic encephalopathy, now I am wondering if the patient had very low blood pressure when she fell and she passed out, may have developed some anoxic brain injury. In the meantime we are continuing supportive care measures including ventilatory support, nutritional support, antibiotics for presumptive aspiration, and mostly supportive care measures. Including GI and DVT prophylaxis, and checking daily labs. And daily x-rays of the chest. Chest x- ray today showed bilateral patchy airspace opacities, most likely consistent with aspiration pneumonia. WBC count today is 4.7 hemoglobin is 11.7. Basic metabolic profile is normal, renal profile is normal Patient was reevaluated today on 06/11/2023 remains in the ICU, intubated and mechanically ventilated. She is on assist-control rate of 16 tidal volume 450 FiO2 35% PEEP of 5 ABG showed a pO2 of 134 pCO2 40 pH of 7.48, hence no changes were made in vent settings. Chest x-ray is showing mostly bibasilar infiltrates right more so than left, suspicious for aspiration pneumonia. WBC count today is 10 hemoglobin 12.4 platelets are 191. Basic metabolic profile is normal except for low potassium being addressed and treated accordingly.Renal profile is normal with BUN of 9 creatinine 0.45.Blood cultures and sputum cultures have been negative since admission. Clinically the patient is the same, she moves her head right and left, no purposeful movement noted. Patient withdraws to deep painful stimuli, otherwise no other neurological responses are noted. Pupils are equal and reactive to light. Patient was evaluated today on 06/12/2023, remains in the ICU, intubated and mechanically ventilated. Her mental status remains poor, off sedation the patient was still unresponsive to any stimuli except she gets to be agitated thrashing in bed, no purposeful movement, shaking her head left and right, but no purposeful movement whatsoever. Patient did not comprehend any instructions post sedation holiday. Has she had to be placed back on propofol at 50 mcg/kg/min, Versed is presently on hold. Seems to be status sedated enough with propofol, not requiring much to calm her down and ventilate the patient properly. Chest x-ray continues to show right basilar and left basilar atelectasis/infiltrates, I believe this is more or less an aspiration pneumonia unless proven otherwise. Remains on Zosyn. Her vent settings are 16/450/35/5 ABG showed a pO2 of 119 pCO2 47 pH of 7.39, hence no changes were made in the vent settings. WBC count is 7.9 hemoglobin is 11.1. Basic metabolic profile is normal, renal profile is normal blood cultures and sputum cultures are negative Objective - Vital Signs Vital signs: Vital Signs Temp 97.8 F 06/12/23 08:00 Pulse 74 06/12/23 11:20 Resp 21 06/12/23 09:00 BP 130/105 06/12/23 09:00 Pulse Ox 100 06/12/23 09:00 FiO2 35 06/12/23 11:06 Intake & Output 06/11/23 06/12/23 06/12/23 18:59 06:59 18:59 Intake Total 1879.342 5304.726 512.196 Output Total 435 450 150 Balance 8529.385 4444.726 362.196 Weight 149 kg Intake: IV 1100 1200 225 Ampicillin-Sulbactam 3 gm 200 300 In Sodium Chloride 0.9% 100 ml @ 200 mls/hr IVPB Q6HR [facility] Rx#:[id number] Sodium Chloride 0.9% 1, 900 900 225 000 ml @ 75 mls/hr IV . [id number] J[facility] Rx#:[id number] Intake, IV Titration 323.433 340.726 101.196 Amount Midazolam HCl 200 mg In 27.300 47.000 Sodium Chloride 0.9% 60 ml @ 11 MG/HR 5.5 mls/hr IV .[id number] [facility] Rx#: [id number] propofoL 1,000 mg In 296.133 340.726 54.196 Empty Bag 1 bag @ 15 MCG/ KG/MIN 11.839 mls/hr IV . [id number] J[facility] Rx#:[id number] Tube Feeding 304 474 156 Other 90 90 30 Output: Urine 435 450 150 Other: Voiding Method Indwelling Catheter Indwelling Catheter ABP, PAP, CO, CI - Last Documented Arterial Blood Pressure 130/74 - Exam General: Reveals a 52-year-old female intubated mechanically ventilated not in distress continues to move her head right and left without purposeful movement Skin: Skin is warm and dry and no rashes or lesions are noted. Eye: Pupils are equal, round and reactive to light Ears, nose, mouth and throat: There are moist mucous membranes and no oral lesions. Tracheal tube and orogastric tube are intact. Neck: The neck is supple, there is no tenderness or JVD. Cardiovascular: Distant S1-S2, no S3 gallop. Respiratory: Symmetrical chest expansion clear breath sound bilaterally Gastrointestinal: Soft, non-distended, non-tender abdomen without masses or organomegaly noted. There is no rebound or guarding present. Bowel sounds are u nremarkable. Back: There is no tenderness to palpation in the midline. There is no obvious deformity. Musculoskeletal: Normal ROM, no tenderness, There is no pedal edema. There is no calf tenderness or swelling. No cords were appreciated. Neurological: Could not fully assess, patient is requiring propofol and Versed, as noted above. However off sedation the patient continues to have poor mental status and no purposeful movement, no following instructions and was more agitated Psychiatric: Could not assess - Labs CBC & Chem 7: 06/12/23 04:25 06/12/23 04:25 Labs: Abnormal Lab Results - Last 24 Hours (Table) 06/12/23 06/12/23 06/12/23 Range/Units 04: 04:25 06:22 RBC 3.46 L (3.80-5.40) m/uL Hgb 11.1 L (11.4-16.0) gm/dL Hct 33.8 L (34.0-46.0) % ABG pCO2 47 H (35-45) mmHg ABG pO2 119 H (83-108) mmHg ABG HCO3 29 H (21-25) mmol/L ABG Total CO2 30 H (19-24) mmol/L ABG O2 Saturation 99.1 H (94-97) % Sodium 132 L (137-145) mmol/L Creatinine 0.49 L (0.52-1.04) mg/dL Glucose 109 H (74-99) mg/dL POC Glucose (mg/dL) (70-110) mg/dL Calcium 8.1 L (8.4-10.2) mg/dL 06/12/23 06/12/23 Range/Units 06:48 11:57 RBC (3.80-5.40) m/uL Hgb (11.4-16.0) gm/dL Hct (34.0-46.0) % ABG pCO2 (35-45) mmHg ABG pO2 (83-108) mmHg ABG HCO3 (21-25) mmol/L ABG Total CO2 (19-24) mmol/L ABG O2 Saturation (94-97) % Sodium (137-145) mmol/L Creatinine (0.52-1.04) mg/dL Glucose (74-99) mg/dL POC Glucose (mg/dL) 134 H 143 H (70-110) mg/dL Calcium (8.4-10.2) mg/dL Microbiology - Last 24 Hours (Table) 06/09/23 04:09 Blood Culture - Preliminary Blood 06/08/23 23:55 Gram Stain - Final Sputum Sputum Culture - Final Assessment and Plan Assessment: Impression: Acute mental status change exact etiology remains unclear, suspect acute toxic metabolic encephalopathy, possible anoxic brain injury Intubation to protect airways, patient was not hypoxic or hypercapnic and intubation was mostly done for airways protection Morbid obesity Perihilar patchy infiltrates, possible aspiration pneumonia, remains empirically on Zosyn Positive drug screen and urine Scalp hematoma secondary to fall EEG basically ruled out seizure activity Recommendation: Continue ventilatory support Continue antibiotics for aspiration. Chest x-ray is showing some improvement Continue aspirin Continue GI and DVT prophylaxis Continue enteral feeding Patient is not requiring any hemodynamic support at present, however considering the patient is requiring frequent blood draws, a left brachial arterial line was placed, may or may not require a central line apparently not necessary at this point now Continue subcu Lovenox and IV Protonix Patient is critically ill. May eventually require tracheostomy and PEG tube placement if her mental status does not improve much over the next few days Critical care time is over 30 minutes, Will continue to follow Time with Patient: Greater than 30
--- NOTE | 2023-06-12 13:31 | P.PN ---
Subjective Progress Note Date: 06/12/23 patient is a 52-year-old lady with no significant past medical history brought to the ER for altered mental status and fall. History is limited and most of it is obtained from electronic medical records. According to them patient was found lying facedown on the floor of the restroom by her boyfriend. Patient was not responsive, EMS was called and when they arrived at the spot patient was found to be obtunded. Patient was found to have shallow breaths and minimally responsive. Patient was immediately transferred to the ER. Initial lab work done in the ER showed WBC 8.1, hemoglobin 13.2, platelet count 232, sodium 135, potassium 4.7, BUN 15, creatinine 0.73 UA was negative for any infection Urine drug screen was positive for barbiturates, amphetamines, marijuana. Initial NIH score was 14. Code stroke was called and immediate CT of the head was done that showed left parietal scalp hematoma. CT angiogram was negative for any occlusion of major vessels of head and neck. ER physician discussed with on-call interventional neurologist, patient was deemed not a candidate for thrombolytic therapy Patient was intubated in the ER and was transferred to ICU 06/09. Patient seen and examined.Blood work done this morning showed WBC 12.7, hemoglobin 0.7, platelet count 182, sodium 133, potassium 3.7, BUN 10, creatinine 0.50, glucose 115. EEG was performed, which was abnormal due to background slowing of moderate to severe degree, suggestive of generalized cerebral dysfunction as can be seen with toxic metabolic encephalopathy or related to diffuse structural brain abn ormality. No epileptiform activity was seen. 06/10. Patient seen and examined. Blood work done this morning showed WBC 10, hemoglobin 12.4, platelet count 191, sodium 132, potassium 3.3, BUN 9, cre atinine 0.45, Continues to be intubated. 06/11. Patient seen and examined. Clinically patient remains unchanged compared to yesterday. Patient could not tolerate sedation holiday today, became very agitated and was unable to follow any commands REVIEW OF SYSTEMS: Currently intubated and sedated PHYSICAL EXAMINATION: GENERAL: The patient is intubated, not in any acute distress. Well developed, well nourished. HEENT: Pupils are round and equally reacting to light. EOMI. No scleral icterus. CARDIOVASCULAR: S1 and S2 present. No murmurs, rubs, or gallops. PULMONARY: Chest is clear to auscultation, no wheezing or crackles. ABDOMEN: Soft, nontender, nondistended, normoactive bowel sounds. No palpable organomegaly. MUSCULOSKELETAL: No joint swelling or deformity. EXTREMITIES: No cyanosis, clubbing, or pedal edema. NEUROLOGICAL: Intubated and sedated SKIN: No rashes. Assessment and plan Acute metabolic encephalopathy Acute hypoxic respiratory failure Polysubstance abuse Morbid obesity Monitor vital signs Monitor CBC Monitor CMP Continue vent management per ICU Aggressive bronchopulmonary hygiene Continue IV Unasyn EEG was performed, which was abnormal due to background slowing of moderate to severe degree, suggestive of generalized cerebral dysfunction as can be seen wit h toxic metabolic encephalopathy or related to diffuse structural brain abnormality. No epileptiform activity was seen. Repeat CT scan of the brain on 06/08 showed no acute abnormality 2D echo revealed mild left ventricular dysfunction. LVEF 45 to 50%. Severely increased left ventricular diastolic volume. Severely increased left ventricular systolic volume. Global hypokinesis with regional variability. Moderately increased left atrial volume. No valvular abnormalities. Neurology following ICU following ,May eventually require tracheostomy and PEG tube placement if her mental status does not improve much over the next few days Labs and medication were reviewed.. Continue same treatment. Continue with symptomatic treatment. Resume home medication. Monitor labs and vitals. DVT and GI prophylaxis. Further recommendations as per clinical course of the patient Dictation was produced using [employer] dictation software. please excuse any grammatical, word or spelling errors. Objective - Vital Signs Vital signs: Vital Signs Temp 98 F 06/12/23 12:00 Pulse 73 06/12/23 13:00 Resp 16 06/12/23 13:00 BP 123/75 06/12/23 13:00 Pulse Ox 94 L 06/12/23 13:00 FiO2 35 06/12/23 13:00 Intake & Output 06/11/23 06/12/23 06/12/23 18:59 06:59 18:59 Intake Total 4794.165 3654.726 1251.485 Output Total 435 450 295 Balance 5884.471 3317.726 956.485 Weight 149 kg Intake: IV 1100 1200 625 Ampicillin-Sulbactam 3 gm 200 300 100 In Sodium Chloride 0.9% 100 ml @ 200 mls/hr IVPB Q6HR [facility] Rx#:[id number] Sodium Chloride 0.9% 1, 900 900 525 000 ml @ 75 mls/hr IV . [id number] [facility] Rx#:[id number] Intake, IV Titration 323.433 340.726 202.485 Amount Midazolam HCl 200 mg In 27.300 47.000 Sodium Chloride 0.9% 60 ml @ 11 MG/HR 5.5 mls/hr IV .[id number] [facility] Rx#: [id number] propofoL 1,000 mg In 296.133 340.726 155.485 Empty Bag 1 bag @ 15 MCG/ KG/MIN 11.839 mls/hr IV . [id number] [facility] Rx#:[id number] Tube Feeding 304 474 364 Other 90 90 60 Output: Urine 435 450 295 Other: Voiding Method Indwelling Catheter Indwelling Catheter ABP, PAP, CO, CI - Last Documented Arterial Blood Pressure 129/69 - Labs CBC & Chem 7: 06/12/23 04:25 06/12/23 04:25 Labs: Abnormal Lab Results - Last 24 Hours (Table) 06/12/23 06/12/23 06/12/23 Range/Units 04:25 04:25 06:22 RBC 3.46 L (3.80-5.40) m/uL Hgb 11.1 L (11.4-16.0) gm/dL Hct 33.8 L (34.0-46.0) % ABG pCO2 47 H (35-45) mmHg ABG pO2 119 H (83-108) mmHg ABG HCO3 29 H (21-25) mmol/L ABG Total CO2 30 H (19-24) mmol/L ABG O2 Saturation 99.1 H (94-97) % Sodium 132 L (137-145) mmol/L Creatinine 0.49 L (0.52-1.04) mg/dL Glucose 109 H (74-99) mg/dL POC Glucose (mg/dL) (70-110) mg/dL Calcium 8.1 L (8.4-10.2) mg/dL 06/12/23 06/12/23 Range/Units 06:48 11:57 RBC (3.80-5.40) m/uL Hgb (11.4-16.0) gm/dL Hct (34.0-46.0) % ABG pCO2 (35-45) mmHg ABG pO2 (83-108) mmHg ABG HCO3 (21-25) mmol/L ABG Total CO2 (19-24) mmol/L ABG O2 Saturation (94-97) % Sodium (137-145) mmol/L Creatinine (0.52-1.04) mg/dL Glucose (74-99) mg/dL POC Glucose (mg/dL) 134 H 143 H (70-110) mg/dL Calcium (8.4-10.2) mg/dL Microbiology - Last 24 Hours (Table) 06/09/23 04:09 Blood Culture - Preliminary Blood 06/08/23 23:55 Gram Stain - Final Sputum Sputum Culture - Final
[2023-06-12 18:03] LABS: Glucose,Whole Blood 100 mg/dL (70-110)
[2023-06-13 04:00] LABS: Glucose,Whole Blood 117 mg/dL (70-110)
[2023-06-13 04:15] LABS: Basophils % (A) 0 %; Eosinophils # (A) 0.1 k/uL (0-0.7); Eosinophils % (A) 2 %; HGB 11.1 gm/dL (11.4-16.0); Lymphocytes # (A) 1.2 k/uL (1.0-4.8); Lymphocytes % (A) 15 %; MCH 31.8 pg (25.0-35.0); MCHC 32.6 g/dL (31.0-37.0); MCV 97.6 fL (80.0-100.0); Mean Platelet Volume 7.4; Monocytes # (A) 0.5 k/uL (0-1.0); Monocytes % (A) 6 %; Neutrophils % (A) 76 %; Platelet Count 267 k/uL (150-450); RBC 3.48 m/uL (3.80-5.40); RDW 12.3 % (11.5-15.5); WBC 7.9 k/uL (3.8-10.6)
[2023-06-13 04:27] LABS: African American GFR (CKD) >90 (>60 ml/min/1.73 sqM); Anion Gap 1 mmol/L; Blood Urea Nitrogen 10 mg/dL (7-17); Calcium 8.5 mg/dL (8.4-10.2); Carbon Dioxide 30 mmol/L (22-30); Chloride 104 mmol/L (98-107); Glucose 112 mg/dL (74-99); Non-African American GFR(CKD) >90 (>60 ml/min/1.73 sqM); Potassium 4.1 mmol/L (3.5-5.1); Sodium 135 mmol/L (137-145)
[2023-06-13 06:00] LABS: ABG Base Excess 6.1 mmol/L; ABG HCO3 30 mmol/L (21-25); ABG Oxygen Saturation 99.2 % (94-97); ABG PCO2 41 mmHg (35-45); ABG PH 7.47 (7.35-7.45); ABG PO2 134 mmHg (83-108); ABG TCO2 31 mmol/L (19-24); Allen Test Performed? Yes
--- NOTE | 2023-06-13 07:10 | XR ---
EXAMINATION TYPE: XR chest 1V portable DATE OF EXAM: 06/13/2023 COMPARISON: 06/12/2023 INDICATION: Aspiration pneumonia TECHNIQUE: Single frontal view of the chest is obtained. FINDINGS: The heart size is normal. The pulmonary vasculature is normal. Retrocardiac region not well visualized. A posterior traits not excluded. Other previously improving right lower lobe infiltrate. Endotracheal tube tip is above phill. Nasogastric tube tip is within the abdomen. IMPRESSION: 1. Improving bibasilar infiltrates. Continued follow-up recommended.
[2023-06-13] MEDS: FUROSEMIDE 10 MG/ML 2 ML VIAL IV STA (07:41)
--- NOTE | 2023-06-13 10:34 | P.PN ---
Subjective Progress Note Date: 06/12/23 Patient was seen for a follow-up. Patient is on propofol 65 mcg/kg/min. Versed was discontinued at 8:15 AM, and patient was on Versed 5 mg/h prior to that. Patient underwent sedation holiday with propofol decreased to 10 mcg/kg/min. However patient became very agitated, moving head [id number], not connecting, not following directions. She did acknowledge by raising her eyebrows when the nurse called her name. However she did not follow directions. Therefore she was put back on the sedation. Possible attempt of extubation tomorrow. Objective - Vital Signs Vital signs: Vital Signs Temp 98.2 F 06/12/23 16:00 Pulse 69 06/12/23 16:00 Resp 16 06/12/23 16:00 BP 135/88 06/12/23 16:00 Pulse Ox 99 06/12/23 16:00 FiO2 35 06/12/23 16:00 Intake & Output 06/11/23 06/12/23 06/12/23 18:59 06:59 18:59 Intake Total 7982.453 8211.726 1535.827 Output Total 435 450 720 Balance 7735.752 1878.726 815.827 Weight 149 kg Intake: IV 1100 1200 856 Ampicillin-Sulbactam 3 gm 200 300 100 In Sodium Chloride 0.9% 100 ml @ 200 mls/hr IVPB Q6HR [facility] Rx#:[id number] Pressure Bag 0.9 Sodium 6 Chloride) Sodium Chloride 0.9% 1, 900 900 750 000 ml @ 75 mls/hr IV . [id number] [facility] Rx#:[id number] Intake, IV Titration 323.433 340.726 203.827 Amount Midazolam HCl 200 mg In 27.300 47.000 Sodium Chloride 0.9% 60 ml @ 11 MG/HR 5.5 mls/hr IV .[id number] [facility] Rx#: [id number] propofoL 1,000 mg In 296.133 340.726 156.827 Empty Bag 1 bag @ 15 MCG/ KG/MIN 11.839 mls/hr IV . [id number] [facility] Rx#:[id number] Tube Feeding 304 474 416 Other 90 90 60 Output: Urine 435 450 720 Other: Voiding Method Indwelling Catheter Indwelling Catheter ABP, PAP, CO, CI - Last Documented Arterial Blood Pressure 125/67 - Exam On examination patient is intubated, sedated on propofol 65 mcg/kg/min. Patient is off Versed since 8:15 AM. Patient's pupils are equal, round and reactive to light. Oculocephalics are absent, but she did feel it and resisted for passive head movement after couple times. Corneals are present. Patient has a good gag and cough. Patient withdraws very well to painful stimuli in all 4 extremities. She has very appropriate facial grimacing. - Labs CBC & Chem 7: 06/13/23 04:00 06/13/23 04:00 Labs: Abnormal Lab Results - Last 24 Hours (Table) 06/12/23 06/12/23 06/12/23 Range/Units 04:25 04:25 06:22 RBC 3.46 L (3.80-5.40) m/uL Hgb 11.1 L (11.4-16.0) gm/dL Hct 33.8 L (34.0-46.0) % ABG pCO2 47 H (35-45) mmHg ABG pO2 119 H (83-108) mmHg ABG HCO3 29 H (21-25) mmol/L ABG Total CO2 30 H (19-24) mmol/L ABG O2 Saturation 99.1 H (94-97) % Sodium 132 L (137-145) mmol/L Creatinine 0.49 L (0.52-1.04) mg/dL Glucose 109 H (74-99) mg/dL POC Glucose (mg/dL) (70-110) mg/dL Calcium 8.1 L (8.4-10.2) mg/dL 06/12/23 06/12/23 Range/Units 06:48 11:57 RBC (3.80-5.40) m/uL Hgb (11.4-16.0) gm/dL Hct (34.0-46.0) % ABG pCO2 (35-45) mmHg ABG pO2 (83-108) mmHg ABG HCO3 (21-25) mmol/L ABG Total CO2 (19-24) mmol/L ABG O2 Saturation (94-97) % Sodium (137-145) mmol/L Creatinine (0.52-1.04) mg/dL Glucose (74-99) mg/dL POC Glucose (mg/dL) 134 H 143 H (70-110) mg/dL Calcium (8.4-10.2) mg/dL Microbiology - Last 24 Hours (Table) 06/09/23 04:09 Blood Culture - Preliminary Blood Assessment and Plan Assessment: * Status post unwitnessed fall, followed by altered mental status, unclear cause. * Patient had agonal breathing when EMS arrived, intubated at the scene. Rule out hypoxic encephalopathy. * Probable aspiration pneumonia. Right lower lobe infiltrate. * Ventilator dependent respiratory failure, on mechanical ventilation. * Obesity * History of chronic pain. * History of marijuana use Plan: * EEG was abnormal due to background slowing of moderate to severe degree, suggestive of generalized cerebral dysfunction as can be seen with toxic metabolic encephalopathy or related to diffuse structural brain abnormality. No epileptiform activity was seen. * CTA of head and neck revealed no large vessel occlusion or aneurysm. No acute findings in the arteries of the neck. * Repeat CT head showed decreasing left parietal soft tissue swelling. No acute intracranial process. * 2D echo revealed mild left ventricular dysfunction. LVEF 45 to 50%. Severely increased left ventricular diastolic volume. Severely increased left ventricular systolic volume. Global hypokinesis with regional variability. Moderately increased left atrial volume. No valvular abnormalities. * Lipid panel cholesterol 160, LDL 68, HDL 46, triglycerides 224 * A1c 5.3. * Continue aspirin 81 mg daily. * Patient on Unasyn for possible pneumonia. * Patient failed extubation trial today, but probably because Versed probably still hanging in the system. Hopefully she will be more alert and interactive tomorrow and will be able to be extubated. * Medical management as per IM/ICU. * DVT prophylaxis: Lovenox 40 mg subcu daily * Discussed with nursing staff in detail.
[2023-06-13] MEDS ORDERED: METOPROLOL SUCCINATE 25 MG PO SCH (10:45)
[2023-06-13] MEDS: AMITRIPTYLINE HCL 50 MG TAB PO SCH (11:56)
[2023-06-13] MEDS: METOPROLOL TARTRATE 25 MG TAB PO SCH (11:58)
[2023-06-13] MEDS: GABAPENTIN 300 MG CAP PO SCH (11:58)
[2023-06-13] MEDS: DEXAMETHASONE SOD PHOSPHATE 10 MG/ML 1 ML VIAL IVP SCH (12:14)
[2023-06-13 12:21] LABS: Glucose,Whole Blood 116 mg/dL (70-110)
[2023-06-13 12:55] VITALS: BMI 51.8
[2023-06-13] MEDS: LORazepam 2 MG/ML INJ IV ONE (13:33)
[2023-06-13 13:49] LABS: ABG HCO3 31 mmol/L (21-25); ABG Oxygen Saturation 97.7 % (94-97); ABG PCO2 45 mmHg (35-45); ABG PH 7.45 (7.35-7.45); ABG PO2 90 mmHg (83-108); ABG TCO2 32 mmol/L (19-24); Allen Test Performed? Yes
--- NOTE | 2023-06-13 14:43 | P.PN ---
Subjective Progress Note Date: 06/13/23 Principal diagnosis: Acute mental status change, unresponsiveness, requiring intubation mechanical ventilation mostly to protect airways 52-year-old morbidly obese female patient, came into the emergency department after the patient was found to be face down in the bathroom by her boyfriend. Unfortunately, not a whole lot of history is available on this patient's presentation. She was last seen normal approximately 1-1/2 to 2 hours ago by the boyfriend. The fire department came to her but bathroom and after extensive manipulation she was able to be moved out and brought into the hospital. In the emergency, the patient was obtunded, not protecting her airways and she had an initial NIH score of 14. Code stroke was declared. The patient was further evaluated by emergency department physician and neuro interventionalists. A CT scan of the brain was done that showed left parietal scalp hematoma without any other acute abnormalities. CT angiogram was also done that showed no occlusion of the major arteries. No aneurysm identified. Based on that, the patient was not given thrombolytics and she was not found to be a candidate for thrombolysis. Subsequently, the patient was intubated and placed on mechanical ventilator and she was moved to the intensive care unit. At this point in time, the patient is on propofol which is running at 40 mcg/kg/min. She grimaces to deep painful stimulation. She is hemodynamically stable and she is afebrile. No seizure activity has been noted. No neck stiffness. No fever. The white cell count is at 8.1 with a hemoglobin of 13.2 and a platelet count of 232. Normal coagulation profile. BUN is at 15 with a creatinine of 0.7 and a sodium levels at 135. Currently she is on assist-control mode of mechanical aditi tilation with a rate of 16, tidal volume of 450, FiO2 of 50% with a PEEP of 5. The blood gas showed a pH of 7.44 with a pCO2 of 41 and pO2 of 361 and this was on FiO2 of 100% post intubation. The liver function tests are showing an AST of 30, ALT of 37, alk phos is 188, ammonia level is less than 9, CPK 59. Troponins are negative. UA is negative. Urine drug screen is positive for tricyclic's and amphetamine and marijuana. Alcohol level is less than 10. No significant acidosis. Serum bicarb is at 30, potassium level 4.7 and sodium levels at 135. Normal coagulation profile. Chest x-ray post intubation showed some mild pulm vascular congestion. No airspace disease or consolidation. There is some limited patchy perihilar infiltrates on the right probably related to the deep ET tube that was retracted and subsequent chest x-ray showed no change in the patchy bilateral airspace opacities. Hemodynamically stable. Pierson catheter is in place. Urine output is adequate. IV fluids are in the form of normal saline at rate of 120 cc an hour. Patient evaluated today on 06/09/2023, patient is intubated and mechanically ventilated. She is on assist-control rate 16 tidal volume 450 FiO2 40% and PEEP of 5, ABG this morning showed a pO2 of 175 pCO2 42 pH of 7.45 hence FiO2 was cut down to 35%. Patient is requiring propofol at 75 mcg/kg/min she is also on Versed 5 mg/h 0.9 normal saline at 125 cc/h and I cut it down to 75 patient is on Unasyn empirically, she is also on Lovenox for DVT prophylaxis, patient is positive for amphetamine, tricyclic's, marijuana, neurology consultation is pending.The workup is nondiagnostic, and could not explain her episode of unresponsiveness, labs were reviewed, drug screen was reviewed CT angiogram showed no acute findings in the arteries of the neck CT of the brain showed a left parietal scalp hematoma and no intracranial process noted patient remains unresponsive to any stimuli, her pupils are equally reactive to light. Reevaluated today on 06/10/2023, patient is intubated and mechanically ventilated, on assist-control rate of 16 tidal volume 450 FiO2 35% and PEEP of 5, ABG showed a pO2 of 124 pCO2 41 pH of 7.46. Patient remains on 35% FiO2. Patient is receiving propofol at 40 mcg/kg/min she is also on Versed at 1 mg/h. CT of the brain showed soft tissue/scalp left parietal swelling patient remains on Unasyn empirically for presumptive aspiration, possible aspiration pneumonia patient remains a bit restless, does not follow any commands, her EEG showed no evidence of seizures. Neurology is feeling that the patient most likely had acute toxic metabolic encephalopathy, now I am wondering if the patient had very low blood pressure when she fell and she passed out, may have developed some anoxic brain injury. In the meantime we are continuing supportive care measures including ventilatory support, nutritional support, antibiotics for presumptive aspiration, and mostly supportive care measures. Including GI and DVT prophylaxis, and checking daily labs. And daily x-rays of the chest. Chest x- ray today showed bilateral patchy airspace opacities, most likely consistent with aspiration pneumonia. WBC count today is 4.7 hemoglobin is 11.7. Basic metabolic profile is normal, renal profile is normal Patient was reevaluated today on 06/11/2023 remains in the ICU, intubated and mechanically ventilated. She is on assist-control rate of 16 tidal volume 450 FiO2 35% PEEP of 5 ABG showed a pO2 of 134 pCO2 40 pH of 7.48, hence no changes were made in vent settings. Chest x-ray is showing mostly bibasilar infiltrates right more so than left, suspicious for aspiration pneumonia. WBC count today is 10 hemoglobin 12.4 platelets are 191. Basic metabolic profile is normal except for low potassium being addressed and treated accordingly.Renal profile is normal with BUN of 9 creatinine 0.45.Blood cultures and sputum cultures have been negative since admission. Clinically the patient is the same, she moves her head right and left, no purposeful movement noted. Patient withdraws to deep painful stimuli, otherwise no other neurological responses are noted. Pupils are equal and reactive to light. Patient was evaluated today on 06/12/2023, remains in the ICU, intubated and mechanically ventilated. Her mental status remains poor, off sedation the patient was still unresponsive to any stimuli except she gets to be agitated thrashing in bed, no purposeful movement, shaking her head left and right, but no purposeful movement whatsoever. Patient did not comprehend any instructions post sedation holiday. Has she had to be placed back on propofol at 50 mcg/kg/min, Versed is presently on hold. Seems to be status sedated enough with propofol, not requiring much to calm her down and ventilate the patient properly. Chest x-ray continues to show right basilar and left basilar atelectasis/infiltrates, I believe this is more or less an aspiration pneumonia unless proven otherwise. Remains on Zosyn. Her vent settings are 16/450/35/5 ABG showed a pO2 of 119 pCO2 47 pH of 7.39, hence no changes were made in the vent settings. WBC count is 7.9 hemoglobin is 11.1. Basic metabolic profile is normal, renal profile is normal blood cultures and sputum cultures are negative Reevaluate today on 06/13/2023, patient remains in the ICU, intubated and mechanically ventilated. Surprisingly, the patient seem to be awake, she is off sedation, she is able to follow simple instructions like wiggling toes closing eyes however the patient could not concentrate but she seems to be quite gagging on the endotracheal tube and orogastric tube, reviewed her chest x-ray, reviewed her blood gases, reviewed all labs, and noted that the patient was quite irritated with the endotracheal tube and orogastric tube, hence I decided to extubate the patient and placed on nasal cannula. ABG this morning showed a pO2 of 134 pCO2 41 pH of 7.47 CBC was noted to be normal with WC count of 7.9 hemoglobin 11.1, electrolytes were noted to be normal, And renal profile was normal with BUN of 10 creatinine 0.43. Magnesium is 2.1. Chest x-ray showed improving bibasilar infiltrates which were felt to be related to aspiration pneumonia Objective - Vital Signs Vital signs: Vital Signs Temp 98.9 F 06/13/23 08:00 Pulse 79 06/13/23 12:00 Resp 54 H 06/13/23 12:00 BP 145/85 06/13/23 12:00 Pulse Ox 92 L 06/13/23 12:00 FiO2 100 06/13/23 14:02 Intake & Output 06/12/23 06/13/23 06/13/23 18:59 06:59 18:59 Intake Total 2061.827 2388.484 398 Output Total 1095 1845 1415 Balance 966.827 543.484 -1017 Weight 154.7 kg 154.7 kg Intake: IV 1012 1036 248 Ampicillin-Sulbactam 3 gm 100 100 In Sodium Chloride 0.9% 100 ml @ 200 mls/hr IVPB Q6HR [facility] Rx#:[id number] Pressure Bag 0.9 Sodium 12 36 18 Chloride) Sodium Chloride 0.9% 1, 900 900 230 000 ml @ 75 mls/hr IV . [id number] [facility] Rx#:[id number] Intake, IV Titration 303.827 542.484 Amount Midazolam HCl 200 mg In 47.000 Sodium Chloride 0.9% 60 ml @ 11 MG/HR 5.5 mls/hr IV .[id number] [facility] Rx#: [id number] propofoL 1,000 mg In 156.827 Empty Bag 1 bag @ 15 MCG/ KG/MIN 11.839 mls/hr IV . Q8H27M [facility] Rx#:[id number] propofoL 1,000 mg In 100 542.484 Empty Bag 1 bag @ 15 MCG/ KG/MIN 11.839 mls/hr IV . Q8H27M [facility] Rx#:[id number] Tube Feeding 656 720 120 Other 90 90 30 Output: Urine 1095 1845 1415 Other: Voiding Method Indwelling Catheter Indwelling Catheter Indwelling Catheter ABP, PAP, CO, CI - Last Documented Arterial Blood Pressure 129/75 - Exam General: Reveals a 52-year-old female intubated mechanically ventilated not in distress opening eyes, responding to verbal commands including wiggling toes closing eyes and squeezing hands Skin: Skin is warm and dry and no rashes or lesions are noted. Eye: Pupils are equal, round and reactive to light Ears, nose, mouth and throat: There are moist mucous membranes and no oral lesions. Tracheal tube and orogastric tube are intact. Neck: The neck is supple, there is no tenderness or JVD. Cardiovascular: Regular rate and rhythm distant S1-S2, no S3 gallop. Respiratory: Symmetrical chest expansion clear breath sound bilaterally Gastrointestinal: Soft, non-distended, non-tender abdomen without masses or organomegaly noted. There is no rebound or guarding present. Bowel sounds are unremarkable. Back: There is no tenderness to palpation in the midline. There is no obvious deformity. Musculoskeletal: Normal ROM, no tenderness, There is no pedal edema. There is no calf tenderness or swelling. No cords were appreciated. Neurological: Could not fully assess, but the patient is best I have seen her so far, she is at least awake and following simple instructions. Psychiatric: Awake a bit anxious, could not fully assess - Labs CBC & Chem 7: 06/13/23 04:00 06/13/23 04:00 Labs: Abnormal Lab Results - Last 24 Hours (Table) 06/13/23 06/13/23 06/13/23 Range/Units 03:58 04:00 04:00 RBC 3.48 L (3.80-5.40) m/uL Hgb 11.1 L (11.4-16.0) gm/dL ABG pH (7.35-7.45) ABG pO2 (83-108) mmHg ABG HCO3 (21-25) mmol/L ABG Total CO2 (19-24) mmol/L ABG O2 Saturation (94-97) % Sodium 135 L (137-145) mmol/L Creatinine 0.43 L (0.52-1.04) mg/dL Glucose 112 H (74-99) mg/dL POC Glucose (mg/dL) 117 H (70-110) mg/dL 06/13/23 06/13/23 06/13/23 Range/Units 05:55 12:19 13:32 RBC (3.80-5.40) m/uL Hgb (11.4-16.0) gm/dL ABG pH 7.47 H (7.35-7.45) ABG pO2 134 H (83-108) mmHg ABG HCO3 30 H 31 H (21-25) mmol/L ABG Total CO2 31 H 32 H (19-24) mmol/L ABG O2 Saturation 99.2 H 97.7 H (94-97) % Sodium (137-145) mmol/L Creatinine (0.52-1.04) mg/dL Glucose (74-99) mg/dL POC Glucose (mg/dL) 116 H (70-110) mg/dL Microbiology - Last 24 Hours (Table) 06/09/23 04:09 Blood Culture - Preliminary Blood Assessment and Plan Assessment: Impression: Acute mental status change exact etiology remains unclear, suspect acute toxic metabolic encephalopathy, possible anoxic brain injury Intubation to protect airways, patient was not hypoxic or hypercapnic and intubation was mostly done for airways protection Morbid obesity Perihilar patchy infiltrates, possible aspiration pneumonia, remains empirically on Zosyn Positive drug screen and urine Scalp hematoma secondary to fall EEG basically ruled out seizure activity Recommendation: Patient will be given a trial of extubation off mechanical ventilation today. Continue to monitor in the ICU Continue antibiotics for aspiration. Chest x-ray is showing some improvement Continue aspirin Continue GI and DVT prophylaxis Continue enteral feeding Continue subcu Lovenox and IV Protonix Remains critically ill, will try extubation, but patient is marginal at best. Critical care time is over 30 minutes, Will continue to follow Time with Patient: Greater than 30
--- NOTE | 2023-06-13 15:01 | P.PN ---
Subjective Progress Note Date: 06/13/23 patient is a 52-year-old lady with no significant past medical history brought to the ER for altered mental status and fall. History is limited and most of it is obtained from electronic medical records. According to them patient was found lying facedown on the floor of the restroom by her boyfriend. Patient was not responsive, EMS was called and when they arrived at the spot patient was found to be obtunded. Patient was found to have shallow breaths and minimally responsive. Patient was immediately transferred to the ER. Initial lab work done in the ER showed WBC 8.1, hemoglobin 13.2, platelet count 232, sodium 135, potassium 4.7, BUN 15, creatinine 0.73 UA was negative for any infection Urine drug screen was positive for barbiturates, amphetamines, marijuana. Initial NIH score was 14. Code stroke was called and immediate CT of the head was done that showed left parietal scalp hematoma. CT angiogram was negative for any occlusion of major vessels of head and neck. ER physician discussed with on-call interventional neurologist, patient was deemed not a candidate for thrombolytic therapy Patient was intubated in the ER and was transferred to ICU 06/09. Patient seen and examined.Blood work done this morning showed WBC 12.7, hemoglobin 0.7, platelet count 182, sodium 133, potassium 3.7, BUN 10, creatinine 0.50, glucose 115. EEG was performed, which was abnormal due to background slowing of moderate to severe degree, suggestive of generalized cerebral dysfunction as can be seen with toxic metabolic encephalopathy or related to diffuse structural brain abn ormality. No epileptiform activity was seen. 06/10. Patient seen and examined. Blood work done this morning showed WBC 10, hemoglobin 12.4, platelet count 191, sodium 132, potassium 3.3, BUN 9, cre atinine 0.45, Continues to be intubated. 06/11. Patient seen and examined. Clinically patient remains unchanged compared to yesterday. Patient could not tolerate sedation holiday today, became very agitated and was unable to follow any commands 06/12. Patient seen and examined. Patient extubated this morning, currently following commands. Patient was having stridor, started on Decadron by lmonology. REVIEW OF SYSTEMS: Denies chest pain Patient having stridor. Denies nausea or vomiting PHYSICAL EXAMINATION: GENERAL: The patient is alert, not in any acute distress. Well developed, well nourished. HEENT: Pupils are round and equally reacting to light. EOMI. No scleral icterus. CARDIOVASCULAR: S1 and S2 present. No murmurs, rubs, or gallops. PULMONARY: Chest is clear to auscultation, no wheezing or crackles. ABDOMEN: Soft, nontender, nondistended, normoactive bowel sounds. No palpable organomegaly. MUSCULOSKELETAL: No joint swelling or deformity. EXTREMITIES: No cyanosis, clubbing, or pedal edema. NEUROLOGICAL: Moving all extremity SKIN: No rashes. Assessment and plan Acute metabolic encephalopathy Acute hypoxic respiratory failure Polysubstance abuse Morbid obesity Monitor vital signs Monitor CBC Monitor CMP Aggressive bronchopulmonary hygiene Speech evaluation Continue Decadron Continue IV Unasyn EEG was performed, which was abnormal due to background slowing of moderate to severe degree, suggestive of generalized cerebral dysfunction as can be seen with toxic metabolic encephalopathy or related to diffuse structural brain abnormality. No epileptiform activity was seen. Repeat CT scan of the brain on 06/08 showed no acute abnormality 2D echo revealed mild left ventricular dysfunction. LVEF 45 to 50%. Severely increased left ventricular diastolic volume. Severely increased left ventricular systolic volume. Global hypokinesis with regional variability. Moderately increased left atrial volume. No valvular abnormalities. Neurology following ICU following Labs and medication were reviewed.. Continue same treatment. Continue with symptomatic treatment. Resume home medication. Monitor labs and vitals. DVT and GI prophylaxis. Further recommendations as per clinical course of the patient Dictation was produced using [employer] dictation software. please excuse any grammatical, word or spelling errors. Objective - Vital Signs Vital signs: Vital Signs Temp 98.9 F 06/13/23 08:00 Pulse 79 06/13/23 12:00 Resp 54 H 06/13/23 12:00 BP 145/85 06/13/23 12:00 Pulse Ox 92 L 06/13/23 12:00 FiO2 100 06/13/23 14:02 Intake & Output 06/12/23 06/13/23 06/13/23 18:59 06:59 18:59 Intake Total 2061.827 2388.484 398 Output Total 1095 1845 1415 Balance 966.827 543.484 -1017 Weight 154.7 kg 154.7 kg Intake: IV 1012 1036 248 Ampicillin-Sulbactam 3 gm 100 100 In Sodium Chloride 0.9% 100 ml @ 200 mls/hr IVPB Q6HR [facility] Rx#:[id number] Pressure Bag 0.9 Sodium 12 36 18 Chloride) Sodium Chloride 0.9% 1, 900 900 230 000 ml @ 75 mls/hr IV . [id number] [facility] Rx#:[id number] Intake, IV Titration 303.827 542.484 Amount Midazolam HCl 200 mg In 47.000 Sodium Chloride 0.9% 60 ml @ 11 MG/HR 5.5 mls/hr IV .[id number] [facility] Rx#: [id number] propofoL 1,000 mg In 156.827 Empty Bag 1 bag @ 15 MCG/ KG/MIN 11.839 mls/hr IV . Q8H27M [facility] Rx#:[id number] propofoL 1,000 mg In 100 542.484 Empty Bag 1 bag @ 15 MCG/ KG/MIN 11.839 mls/hr IV . Q8H27M [facility] Rx#:[id number] Tube Feeding 656 720 120 Other 90 90 30 Output: Urine 1095 1845 1415 Other: Voiding Method Indwelling Catheter Indwelling Catheter Indwelling Catheter ABP, PAP, CO, CI - Last Documented Arterial Blood Pressure 129/75 - Labs CBC & Chem 7: 06/13/23 04:00 06/13/23 04:00 Labs: Abnormal Lab Results - Last 24 Hours (Table) 06/13/23 06/13/23 06/13/23 Range/Units 03:58 04:00 04:00 RBC 3.48 L (3.80-5.40) m/uL Hgb 11.1 L (11.4-16.0) gm/dL ABG pH (7.35-7.45) ABG pO2 (83-108) mmHg ABG HCO3 (21-25) mmol/L ABG Total CO2 (19-24) mmol/L ABG O2 Saturation (94-97) % Sodium 135 L (137-145) mmol/L Creatinine 0.43 L (0.52-1.04) mg/dL Glucose 112 H (74-99) mg/dL POC Glucose (mg/dL) 117 H (70-110) mg/dL 06/13/23 06/13/23 06/13/23 Range/Units 05:55 12:19 13:32 RBC (3.80-5.40) m/uL Hgb (11.4-16.0) gm/dL ABG pH 7.47 H (7.35-7.45) ABG pO2 134 H (83-108) mmHg ABG HCO3 30 H 31 H (21-25) mmol/L ABG Total CO2 31 H 32 H (19-24) mmol/L ABG O2 Saturation 99.2 H 97.7 H (94-97) % Sodium (137-145) mmol/L Creatinine (0.52-1.04) mg/dL Glucose (74-99) mg/dL POC Glucose (mg/dL) 116 H (70-110) mg/dL Microbiology - Last 24 Hours (Table) 06/09/23 04:09 Blood Culture - Preliminary Blood
[2023-06-13] MEDS: DEXMEDETOMIDINE/0.9% NACL(PMX) 400 MCG in EMPTY BAG 1 BAG IV SCH (15:45)
[2023-06-13] MEDS: HALOPERIDOL LACTATE 5 MG/ML 1 ML VIAL IVP ONE (16:19)
[2023-06-13 19:07] LABS: Glucose,Whole Blood 122 mg/dL (70-110)
--- NOTE | 2023-06-13 23:14 | P.PN ---
Subjective Progress Note Date: 06/13/23 Patient was seen for a follow-up. Patient was extubated at 9 AM this morning. Per nurse patient is following commands. She does move arms and legs equally. Patient is on low-dose Precedex. She is making eye contact. She is off propofol since 8 AM. She is currently on BiPAP. She is trying to tach. Patient had some coughing fit after extubation for which she is on steroids. Objective - Vital Signs Vital signs: Vital Signs Temp 98.7 F 06/13/23 16:00 Pulse 44 L 06/13/23 20:43 Resp 19 06/13/23 20:00 BP 132/84 06/13/23 20:00 Pulse Ox 98 06/13/23 20:00 FiO2 40 06/13/23 20:28 Intake & Output 06/13/23 06/13/23 06/14/23 06:59 18:59 06:59 Intake Total 2388.484 578.544 42.338 Output Total 1845 1825 30 Balance 543.484 -1246.456 12.338 Weight 154.7 kg 154.7 kg Intake: IV 1036 386 23 Ampicillin-Sulbactam 3 gm 100 In Sodium Chloride 0.9% 100 ml @ 200 mls/hr IVPB Q6HR [facility] Rx#:[id number] Pressure Bag 0.9 Sodium 36 36 3 Chloride) Sodium Chloride 0.9% 1, 900 350 20 000 ml @ 20 mls/hr IV . Q24H [facility] Rx#:[id number] Intake, IV Titration 542.484 42.544 19.338 Amount Dexmedetomidine/0.9% NaCl 42.544 19.338 (Pmx) 400 mcg In Empty Bag 1 bag @ 0.2 MCG/KG/HR 7.735 mls/hr IV .[id number] [facility] Rx#:[id number] propofoL 1,000 mg In 542.484 Empty Bag 1 bag @ 15 MCG/ KG/MIN 11.839 mls/hr IV . Q8H27M [facility] Rx#:[id number] Tube Feeding 720 120 Other 90 30 Output: Urine 1845 1825 30 Other: Voiding Method Indwelling Catheter Indwelling Catheter ABP, PAP, CO, CI - Last Documented Arterial Blood Pressure 104/86 - Exam On examination is slightly groggy, but does become somewhat alert and awake. Patient has BiPAP on. She is extubated. Patient's pupils are equal, round and reacting. Face cannot be assessed. Patient is squeezing hands bilaterally about 4+. She is weak proximally about 3+ with decreased endurance. Patient is wiggling her feet and legs better. - Labs CBC & Chem 7: 06/13/23 04:00 06/13/23 04:00 Labs: Abnormal Lab Results - Last 24 Hours (Table) 06/13/23 06/13/23 06/13/23 Range/Units 03:58 04:00 04:00 RBC 3.48 L (3.80-5.40) m/uL Hgb 11.1 L (11.4-16.0) gm/dL ABG pH (7.35-7.45) ABG pO2 (83-108) mmHg ABG HCO3 (21-25) mmol/L ABG Total CO2 (19-24) mmol/L ABG O2 Saturation (94-97) % Sodium 135 L (137-145) mmol/L Creatinine 0.43 L (0.52-1.04) mg/dL Glucose 112 H (74-99) mg/dL POC Glucose (mg/dL) 117 H (70-110) mg/dL 06/13/23 06/13/23 06/13/23 Range/Units 05:55 12:19 13:32 RBC (3.80-5.40) m/uL Hgb (11.4-16.0) gm/dL ABG pH 7.47 H (7.35-7.45) ABG pO2 134 H (83-108) mmHg ABG HCO3 30 H 31 H (21-25) mmol/L ABG Total CO2 31 H 32 H (19-24) mmol/L ABG O2 Saturation 99.2 H 97.7 H (94-97) % Sodium (137-145) mmol/L Creatinine (0.52-1.04) mg/dL Glucose (74-99) mg/dL POC Glucose (mg/dL) 116 H (70-110) mg/dL 06/13/23 Range/Units 19:05 RBC (3.80-5.40) m/uL Hgb (11.4-16.0) gm/dL ABG pH (7.35-7.45) ABG pO2 (83-108) mmHg ABG HCO3 (21-25) mmol/L ABG Total CO2 (19-24) mmol/L ABG O2 Saturation (94-97) % Sodium (137-145) mmol/L Creatinine (0.52-1.04) mg/dL Glucose (74-99) mg/dL POC Glucose (mg/dL) 122 H (70-110) mg/dL Assessment and Plan Assessment: * Status post unwitnessed fall, followed by altered mental status, unclear cause. * Patient had agonal breathing when EMS arrived, intubated at the scene. Rule out hypoxic encephalopathy. Patient's mentation much improved. * Probable aspiration pneumonia. Right lower lobe infiltrate. * Ventilator dependent respiratory failure, status post extubation, today. * Obesity * History of chronic pain. * History of marijuana use Plan: * Patient was extubated today. Patient is doing much better. Patient is following commands. Moving all 4 extremities equally. Patient still somewhat encephalopathic. * EEG was abnormal due to background slowing of moderate to severe degree, suggestive of generalized cerebral dysfunction as can be seen with toxic metabolic encephalopathy or related to diffuse structural brain abnormality. No epileptiform activity was seen. * CTA of head and neck revealed no large vessel occlusion or aneurysm. No acute findings in the arteries of the neck. * Repeat CT head showed decreasing left parietal soft tissue swelling. No acute intracranial process. * 2D echo revealed mild left ventricular dysfunction. LVEF 45 to 50%. Severely increased left ventricular diastolic volume. Severely increased left ventricular systolic volume. Global hypokinesis with regional variability. Moderately increased left atrial volume. No valvular abnormalities. * Lipid panel cholesterol 160, LDL 68, HDL 46, triglycerides 224. Lipids well-controlled. * A1c 5.3. * Continue aspirin 81 mg daily. * Patient on Unasyn for possible pneumonia. * Patient failed extubation trial today, but probably because Versed probably still hanging in the system. Hopefully she will be more alert and interactive tomorrow and will be able to be extubated. * Medical management as per IM/ICU. * DVT prophylaxis: Lovenox 40 mg subcu daily * Dr. Hampton covering neurology service over the weekend for any concerns. Dr. Win Brown starting neurology service from Friday.
[2023-06-13 23:42] LABS: Glucose,Whole Blood 117 mg/dL (70-110)
[2023-06-14 04:44] LABS: Basophils % (A) 0 %; Eosinophils % (A) 0 %; HCT 39.8 % (34.0-46.0); HGB 12.6 gm/dL (11.4-16.0); Lymphocytes # (A) 0.6 k/uL (1.0-4.8); Lymphocytes % (A) 7 %; MCH 31.2 pg (25.0-35.0); MCHC 31.7 g/dL (31.0-37.0); MCV 98.6 fL (80.0-100.0); Mean Platelet Volume 8.3; Monocytes # (A) 0.4 k/uL (0-1.0); Monocytes % (A) 4 %; Neutrophils # (A) 8.3 k/uL (1.3-7.7); Neutrophils % (A) 89 %; Platelet Count 291 k/uL (150-450); RBC 4.04 m/uL (3.80-5.40); RDW 12.6 % (11.5-15.5); WBC 9.4 k/uL (3.8-10.6)
[2023-06-14 05:02] LABS: African American GFR (CKD) >90 (>60 ml/min/1.73 sqM); Anion Gap 7 mmol/L; Blood Urea Nitrogen 18 mg/dL (7-17); Calcium 9.2 mg/dL (8.4-10.2); Carbon Dioxide 27 mmol/L (22-30); Chloride 104 mmol/L (98-107); Glucose 127 mg/dL (74-99); Non-African American GFR(CKD) >90 (>60 ml/min/1.73 sqM); Potassium 4.7 mmol/L (3.5-5.1); Sodium 138 mmol/L (137-145)
--- NOTE | 2023-06-14 07:30 | XR ---
EXAMINATION TYPE: XR chest 1V portable DATE OF EXAM: 06/14/2023 Comparison: 06/13/2023 Clinical History: 52-year-old female pneumonia Findings: Interval extubation and removal of NG tube. Patchy and confluent bilateral airspace disease, right gr eater than left has increased. Heart borderline enlarged. Impression: Worsened patchy and confluent bilateral airspace disease, right greater than left.
[2023-06-14] MEDS: FUROSEMIDE 10 MG/ML 4 ML VIAL IV STA (09:32)
[2023-06-14] MEDS: buPROPion SR 150 MG TABLET.ER PO SCH (09:53)
[2023-06-14 12:05] LABS: Glucose,Whole Blood 103 mg/dL (70-110)
--- NOTE | 2023-06-14 13:06 | P.PN ---
Subjective Progress Note Date: 06/14/23 Principal diagnosis: Acute mental status change, unresponsiveness, requiring intubation mechanical ventilation mostly to protect airways 52-year-old morbidly obese female patient, came into the emergency department after the patient was found to be face down in the bathroom by her boyfriend. Unfortunately, not a whole lot of history is available on this patient's presentation. She was last seen normal approximately 1-1/2 to 2 hours ago by the boyfriend. The fire department came to her but bathroom and after extensive manipulation she was able to be moved out and brought into the hospital. In the emergency, the patient was obtunded, not protecting her airways and she had an initial NIH score of 14. Code stroke was declared. The patient was further evaluated by emergency department physician and neuro interventionalists. A CT scan of the brain was done that showed left parietal scalp hematoma without any other acute abnormalities. CT angiogram was also done that showed no occlusion of the major arteries. No aneurysm identified. Based on that, the patient was not given thrombolytics and she was not found to be a candidate for thrombolysis. Subsequently, the patient was intubated and placed on mechanical ventilator and she was moved to the intensive care unit. At this point in time, the patient is on propofol which is running at 40 mcg/kg/min. She grimaces to deep painful stimulation. She is hemodynamically stable and she is afebrile. No seizure activity has been noted. No neck stiffness. No fever. The white cell count is at 8.1 with a hemoglobin of 13.2 and a platelet count of 232. Normal coagulation profile. BUN is at 15 with a creatinine of 0.7 and a sodium levels at 135. Currently she is on assist-control mode of mechanical aditi tilation with a rate of 16, tidal volume of 450, FiO2 of 50% with a PEEP of 5. The blood gas showed a pH of 7.44 with a pCO2 of 41 and pO2 of 361 and this was on FiO2 of 100% post intubation. The liver function tests are showing an AST of 30, ALT of 37, alk phos is 188, ammonia level is less than 9, CPK 59. Troponins are negative. UA is negative. Urine drug screen is positive for tricyclic's and amphetamine and marijuana. Alcohol level is less than 10. No significant acidosis. Serum bicarb is at 30, potassium level 4.7 and sodium levels at 135. Normal coagulation profile. Chest x-ray post intubation showed some mild pulm vascular congestion. No airspace disease or consolidation. There is some limited patchy perihilar infiltrates on the right probably related to the deep ET tube that was retracted and subsequent chest x-ray showed no change in the patchy bilateral airspace opacities. Hemodynamically stable. Pierson catheter is in place. Urine output is adequate. IV fluids are in the form of normal saline at rate of 120 cc an hour. Patient evaluated today on 06/09/2023, patient is intubated and mechanically ventilated. She is on assist-control rate 16 tidal volume 450 FiO2 40% and PEEP of 5, ABG this morning showed a pO2 of 175 pCO2 42 pH of 7.45 hence FiO2 was cut down to 35%. Patient is requiring propofol at 75 mcg/kg/min she is also on Versed 5 mg/h 0.9 normal saline at 125 cc/h and I cut it down to 75 patient is on Unasyn empirically, she is also on Lovenox for DVT prophylaxis, patient is positive for amphetamine, tricyclic's, marijuana, neurology consultation is pending.The workup is nondiagnostic, and could not explain her episode of unresponsiveness, labs were reviewed, drug screen was reviewed CT angiogram showed no acute findings in the arteries of the neck CT of the brain showed a left parietal scalp hematoma and no intracranial process noted patient remains unresponsive to any stimuli, her pupils are equally reactive to light. Reevaluated today on 06/10/2023, patient is intubated and mechanically ventilated, on assist-control rate of 16 tidal volume 450 FiO2 35% and PEEP of 5, ABG showed a pO2 of 124 pCO2 41 pH of 7.46. Patient remains on 35% FiO2. Patient is receiving propofol at 40 mcg/kg/min she is also on Versed at 1 mg/h. CT of the brain showed soft tissue/scalp left parietal swelling patient remains on Unasyn empirically for presumptive aspiration, possible aspiration pneumonia patient remains a bit restless, does not follow any commands, her EEG showed no evidence of seizures. Neurology is feeling that the patient most likely had acute toxic metabolic encephalopathy, now I am wondering if the patient had very low blood pressure when she fell and she passed out, may have developed some anoxic brain injury. In the meantime we are continuing supportive care measures including ventilatory support, nutritional support, antibiotics for presumptive aspiration, and mostly supportive care measures. Including GI and DVT prophylaxis, and checking daily labs. And daily x-rays of the chest. Chest x- ray today showed bilateral patchy airspace opacities, most likely consistent with aspiration pneumonia. WBC count today is 4.7 hemoglobin is 11.7. Basic metabolic profile is normal, renal profile is normal Patient was reevaluated today on 06/11/2023 remains in the ICU, intubated and mechanically ventilated. She is on assist-control rate of 16 tidal volume 450 FiO2 35% PEEP of 5 ABG showed a pO2 of 134 pCO2 40 pH of 7.48, hence no changes were made in vent settings. Chest x-ray is showing mostly bibasilar infiltrates right more so than left, suspicious for aspiration pneumonia. WBC count today is 10 hemoglobin 12.4 platelets are 191. Basic metabolic profile is normal except for low potassium being addressed and treated accordingly.Renal profile is normal with BUN of 9 creatinine 0.45.Blood cultures and sputum cultures have been negative since admission. Clinically the patient is the same, she moves her head right and left, no purposeful movement noted. Patient withdraws to deep painful stimuli, otherwise no other neurological responses are noted. Pupils are equal and reactive to light. Patient was evaluated today on 06/12/2023, remains in the ICU, intubated and mechanically ventilated. Her mental status remains poor, off sedation the patient was still unresponsive to any stimuli except she gets to be agitated thrashing in bed, no purposeful movement, shaking her head left and right, but no purposeful movement whatsoever. Patient did not comprehend any instructions post sedation holiday. Has she had to be placed back on propofol at 50 mcg/kg/min, Versed is presently on hold. Seems to be status sedated enough with propofol, not requiring much to calm her down and ventilate the patient properly. Chest x-ray continues to show right basilar and left basilar atelectasis/infiltrates, I believe this is more or less an aspiration pneumonia unless proven otherwise. Remains on Zosyn. Her vent settings are 16/450/35/5 ABG showed a pO2 of 119 pCO2 47 pH of 7.39, hence no changes were made in the vent settings. WBC count is 7.9 hemoglobin is 11.1. Basic metabolic profile is normal, renal profile is normal blood cultures and sputum cultures are negative Reevaluate today on 06/13/2023, patient remains in the ICU, intubated and mechanically ventilated. Surprisingly, the patient seem to be awake, she is off sedation, she is able to follow simple instructions like wiggling toes closing eyes however the patient could not concentrate but she seems to be quite gagging on the endotracheal tube and orogastric tube, reviewed her chest x-ray, reviewed her blood gases, reviewed all labs, and noted that the patient was quite irritated with the endotracheal tube and orogastric tube, hence I decided to extubate the patient and placed on nasal cannula. ABG this morning showed a pO2 of 134 pCO2 41 pH of 7.47 CBC was noted to be normal with WC count of 7.9 hemoglobin 11.1, electrolytes were noted to be normal, And renal profile was normal with BUN of 10 creatinine 0.43. Magnesium is 2.1. Chest x-ray showed improving bibasilar infiltrates which were felt to be related to aspiration pneumonia Patient was reevaluated today on 06/14/2023, patient remains in the ICU, he was e xtubated yesterday, however she required to go on BiPAP, patient also required Decadron for post extubation stridor, she also required Precedex for agitation while on BiPAP, however today and this morning the patient seems to be much better, her mentation has significantly improved, she is now fully alert and oriented, and she does not seem to be in any distress. She is now on 3 L nasal cannula with O2 saturation of 96%. Hemodynamically stable with a blood pressure of 147/47, relatively normal CBC with WBC of 9.4 hemoglobin 12.6, electrolytes are normal BUN is 18 creatinine 0.5 urine output has been low today hence I recommended a dose of Lasix to be given. X-ray is showing worsening patchy and confluent bilateral airspace disease, it is not clear to me whether the findings are findings of aspiration pneumonia with I believe superimposed interstitial edema. Hoping will improve with diuretics, in the meantime the patient is on Zosyn for presumptive aspiration pneumonia on his initial presentation Objective - Vital Signs Vital signs: Vital Signs Temp 98.2 F 06/14/23 08:00 Pulse 58 L 06/14/23 11:30 Resp 22 06/14/23 11:00 BP 147/47 06/14/23 11:00 Pulse Ox 93 L 06/14/23 11:00 FiO2 35 06/14/23 07:38 Intake & Output 06/13/23 06/14/23 06/14/23 18:59 06:59 18:59 Intake Total 578.544 569.550 212.377 Output Total 9192 308 9017 Balance -1246.456 114.550 -987.623 Weight 154.7 kg 147.418 kg Intake: IV 386 409 100 Ampicillin-Sulbactam 3 gm 200 In Sodium Chloride 0.9% 100 ml @ 200 mls/hr IVPB Q6HR [facility] Rx#:[id number] Pressure Bag 0.9 Sodium 36 9 Chloride) Sodium Chloride 0.9% 1, 350 200 100 000 ml @ 20 mls/hr IV . Q24H [facility] Rx#:[id number] Intake, IV Titration 42.544 160.550 12.377 Amount Dexmedetomidine/0.9% NaCl 42.544 160.550 12.377 (Pmx) 400 mcg In Empty Bag 1 bag @ 0.2 MCG/KG/HR 7.735 mls/hr IV .[id number] [facility] Rx#:[id number] Oral 100 Tube Feeding 120 Other 30 Output: Urine 9954 556 7730 Other: Voiding Method Indwelling Catheter Indwelling Catheter Indwelling Catheter ABP, PAP, CO, CI - Last Documented Arterial Blood Pressure 104/86 - Exam General: Revealed 52-year-old female on nasal cannula, awake alert oriented and not in distress. Skin: Skin is warm and dry and no rashes or lesions are noted. Eye: Pupils are equal, round and reactive to light Ears, nose, mouth and throat: There are moist mucous membranes and no oral lesions. Tracheal tube and orogastric tube are intact. Neck: The neck is supple, there is no tenderness or JVD. Cardiovascular: Regular rate and rhythm distant S1-S2, no S3 gallop. Respiratory: Minimal fine crackles at the bases no rhonchi no wheezes Gastrointestinal: Soft, non-distended, non-tender abdomen without masses or organomegaly noted. There is no rebound or guarding present. Bowel sounds are unremarkable. Back: There is no tenderness to palpation in the midline. There is no obvious deformity. Musculoskeletal: Normal ROM, no tenderness, There is no pedal edema. There is no calf tenderness or swelling. No cords were appreciated. Neurological: Alert and oriented x 3 no gross focal neurologic deficit Psychiatric: Awake normal mood affect and normal mental status examination - Labs CBC & Chem 7: 06/14/23 04:00 06/14/23 03:56 Labs: Abnormal Lab Results - Last 24 Hours (Table) 06/13/23 06/13/23 06/13/23 Range/Units 13:32 19:05 23:40 Neutrophils # (1.3-7.7) k/uL Lymphocytes # (1.0-4.8) k/uL ABG HCO3 31 H (21-25) mmol/L ABG Total CO2 32 H (19-24) mmol/L ABG O2 Saturation 97.7 H (94-97) % BUN (7-17) mg/dL Creatinine (0.52-1.04) mg/dL Glucose (74-99) mg/dL POC Glucose (mg/dL) 122 H 117 H (70-110) mg/dL 06/14/23 06/14/23 Range/Units 03:56 04:00 Neutrophils # 8.3 H (1.3-7.7) k/uL Lymphocytes # 0.6 L (1.0-4.8) k/uL ABG HCO3 (21-25) mmol/L ABG Total CO2 (19-24) mmol/L ABG O2 Saturation (94-97) % BUN 18 H (7-17) mg/dL Creatinine 0.50 L (0.52-1.04) mg/dL Glucose 127 H (74-99) mg/dL POC Glucose (mg/dL) (70-110) mg/dL Assessment and Plan Assessment: Impression: Acute mental status change exact etiology remains unclear, suspect acute toxic metabolic encephalopathy, possible anoxic brain injury Intubation to protect airways, patient was not hypoxic or hypercapnic and intubation was mostly done for airways protection Morbid obesity Perihilar patchy infiltrates, possible aspiration pneumonia, remains empirically on Zosyn, underlying interstitial edema is not entirely ruled out, felt to be less likely Positive drug screen and urine Scalp hematoma secondary to fall Recommendation: Continue O2 via nasal cannula and titrate accordingly Continue antibiotics Gentle diuresis Monitor in the ICU for the next few hours could consider transitioning to regular medical floor later this afternoon Continue Zosyn Continue GI DVT prophylaxis Advance diet as tolerated Continue subcu heparin/Lovenox and IV Protonix Will continue to follow Time with Patient: Less than 30
--- NOTE | 2023-06-14 14:51 | P.PN ---
Subjective Progress Note Date: 06/14/23 patient is a 52-year-old lady with no significant past medical history brought to the ER for altered mental status and fall. History is limited and most of it is obtained from electronic medical records. According to them patient was found lying facedown on the floor of the restroom by her boyfriend. Patient was not responsive, EMS was called and when they arrived at the spot patient was found to be obtunded. Patient was found to have shallow breaths and minimally responsive. Patient was immediately transferred to the ER. Initial lab work done in the ER showed WBC 8.1, hemoglobin 13.2, platelet count 232, sodium 135, potassium 4.7, BUN 15, creatinine 0.73 UA was negative for any infection Urine drug screen was positive for barbiturates, amphetamines, marijuana. Initial NIH score was 14. Code stroke was called and immediate CT of the head was done that showed left parietal scalp hematoma. CT angiogram was negative for any occlusion of major vessels of head and neck. ER physician discussed with on-call interventional neurologist, patient was deemed not a candidate for thrombolytic therapy Patient was intubated in the ER and was transferred to ICU 06/09. Patient seen and examined.Blood work done this morning showed WBC 12.7, hemoglobin 0.7, platelet count 182, sodium 133, potassium 3.7, BUN 10, creatinine 0.50, glucose 115. EEG was performed, which was abnormal due to background slowing of moderate to severe degree, suggestive of generalized cerebral dysfunction as can be seen with toxic metabolic encephalopathy or related to diffuse structural brain abn ormality. No epileptiform activity was seen. 06/10. Patient seen and examined. Blood work done this morning showed WBC 10, hemoglobin 12.4, platelet count 191, sodium 132, potassium 3.3, BUN 9, cre atinine 0.45, Continues to be intubated. 06/11. Patient seen and examined. Clinically patient remains unchanged compared to yesterday. Patient could not tolerate sedation holiday today, became very agitated and was unable to follow any commands 06/12. Patient seen and examined. Patient extubated this morning, currently following commands. Patient was having stridor, started on Decadron by lmonology. 06/13. Patient seen and examined. Currently sitting up in the chair. Answering all questions appropriately. Patient is anxious. Stridor has resolved. pulmonary started gentle diuresis REVIEW OF SYSTEMS: Denies chest pain Denies nausea or vomiting PHYSICAL EXAMINATION: GENERAL: The patient is alert, not in any acute distress. Well developed, well nourished. HEENT: Pupils are round and equally reacting to light. EOMI. No scleral icterus. CARDIOVASCULAR: S1 and S2 present. No murmurs, rubs, or gallops. PULMONARY: Chest is clear to auscultation, no wheezing or crackles. ABDOMEN: Soft, nontender, nondistended, normoactive bowel sounds. No palpable organomegaly. MUSCULOSKELETAL: No joint swelling or deformity. EXTREMITIES: No cyanosis, clubbing, or pedal edema. NEUROLOGICAL: Moving all extremity SKIN: No rashes. Assessment and plan Acute metabolic encephalopathy Acute hypoxic respiratory failure Polysubstance abuse Morbid obesity Monitor vital signs Monitor CBC Monitor CMP Aggressive bronchopulmonary hygiene Continue Decadron Continue IV Unasyn EEG was performed, which was abnormal due to background slowing of moderate to severe degree, suggestive of generalized cerebral dysfunction as can be seen with toxic metabolic encephalopathy or related to diffuse structural brain abnormality. No epileptiform activity was seen. Repeat CT scan of the brain on 06/08 showed no acute abnormality 2D echo revealed mild left ventricular dysfunction. LVEF 45 to 50%. Severely increased left ventricular diastolic volume. Severely increased left ventricular systolic volume. Global hypokinesis with regional variability. Moderately increased left atrial volume. No valvular abnormalities. Neurology following ICU following Labs and medication were reviewed.. Continue same treatment. Continue with symptomatic treatment. Resume home medication. Monitor labs and vitals. DVT and GI prophylaxis. Further recommendations as per clinical course of the joesph ent Dictation was produced using [employer] dictation software. please excuse any grammatical, word or spelling errors. Objective - Vital Signs Vital signs: Vital Signs Temp 98.2 F 06/14/23 08:00 Pulse 87 06/14/23 13:00 Resp 28 H 06/14/23 13:00 BP 103/86 06/14/23 13:00 Pulse Ox 98 06/14/23 13:00 FiO2 35 06/14/23 07:38 Intake & Output 06/13/23 06/14/23 06/14/23 18:59 06:59 18:59 Intake Total 578.544 569.550 232.377 Output Total 3402 923 0948 Balance -1246.456 114.550 -1067.623 Weight 154.7 kg 147.418 kg Intake: IV 386 409 120 Ampicillin-Sulbactam 3 gm 200 In Sodium Chloride 0.9% 100 ml @ 200 mls/hr IVPB Q6HR [facility] Rx#:[id number] Pressure Bag 0.9 Sodium 36 9 Chloride) Sodium Chloride 0.9% 1, 350 200 120 000 ml @ 20 mls/hr IV . Q24H [facility] Rx#:[id number] Intake, IV Titration 42.544 160.550 12.377 Amount Dexmedetomidine/0.9% NaCl 42.544 160.550 12.377 (Pmx) 400 mcg In Empty Bag 1 bag @ 0.2 MCG/KG/HR 7.735 mls/hr IV .[id number] [facility] Rx#:[id number] Oral 100 Tube Feeding 120 Other 30 Output: Urine 2555 427 8484 Other: Voiding Method Indwelling Catheter Indwelling Catheter Indwelling Catheter ABP, PAP, CO, CI - Last Documented Arterial Blood Pressure 104/86 - Labs CBC & Chem 7: 06/14/23 04:00 06/14/23 03:56 Labs: Abnormal Lab Results - Last 24 Hours (Table) 06/13/23 06/13/23 06/14/23 Range/Units 19:05 23:40 03:56 Neutrophils # (1.3-7.7) k/uL Lymphocytes # (1.0-4.8) k/uL BUN 18 H (7-17) mg/dL Creatinine 0.50 L (0.52-1.04) mg/dL Glucose 127 H (74-99) mg/dL POC Glucose (mg/dL) 122 H 117 H (70-110) mg/dL 06/14/23 Range/Units 04:00 Neutrophils # 8.3 H (1.3-7.7) k/uL Lymphocytes # 0.6 L (1.0-4.8) k/uL BUN (7-17) mg/dL Creatinine (0.52-1.04) mg/dL Glucose (74-99) mg/dL POC Glucose (mg/dL) (70-110) mg/dL Microbiology - Last 24 Hours (Table) 06/09/23 04:09 Blood Culture - Final Blood
[2023-06-14 20:56] LABS: Glucose,Whole Blood 75 mg/dL (70-110)
[2023-06-14] MEDS ORDERED: IPRATROPIUM-ALBUTEROL 3 ML NEB INHALATION PRN (21:53)
[2023-06-14] MEDS: SUMAtriptan succinate 50 MG TAB PO STA (22:44)
[2023-06-15 06:34] LABS: Glucose,Whole Blood 85 mg/dL (70-110)
--- NOTE | 2023-06-15 07:45 | XR ---
EXAMINATION TYPE: XR chest 1V portable DATE OF EXAM: 06/15/2023 Comparison: 06/14/2023 Clinical History: 52-year-old female pneumonia Findings: Heart normal size. Bilateral patchy airspace disease right greater than left shows slight improvement . Suspect small underlying pleural effusions. Impression: Patchy bilateral airspace disease, right greater left slightly improving. Similar small effusions.
[2023-06-15] MEDS: AMPICILLIN-SULBACTAM 3 GM in SODIUM CHLORIDE 0.9% 100 ML IVPB SCH (08:43)
[2023-06-15] MEDS: GABAPENTIN 300 MG CAP PO SCH (08:44)
[2023-06-15] MEDS: IPRATROPIUM-ALBUTEROL 3 ML NEB INHALATION SCH (08:54)
[2023-06-15 11:18] LABS: Glucose,Whole Blood 99 mg/dL (70-110)
--- NOTE | 2023-06-15 12:30 | P.PN ---
Subjective Progress Note Date: 06/15/23 patient is a 52-year-old lady with no significant past medical history brought to the ER for altered mental status and fall. History is limited and most of it is obtained from electronic medical records. According to them patient was found lying facedown on the floor of the restroom by her boyfriend. Patient was not responsive, EMS was called and when they arrived at the spot patient was found to be obtunded. Patient was found to have shallow breaths and minimally responsive. Patient was immediately transferred to the ER. Initial lab work done in the ER showed WBC 8.1, hemoglobin 13.2, platelet count 232, sodium 135, potassium 4.7, BUN 15, creatinine 0.73 UA was negative for any infection Urine drug screen was positive for barbiturates, amphetamines, marijuana. Initial NIH score was 14. Code stroke was called and immediate CT of the head was done that showed left parietal scalp hematoma. CT angiogram was negative for any occlusion of major vessels of head and neck. ER physician discussed with on-call interventional neurologist, patient was deemed not a candidate for thrombolytic therapy Patient was intubated in the ER and was transferred to ICU 06/09. Patient seen and examined.Blood work done this morning showed WBC 12.7, hemoglobin 0.7, platelet count 182, sodium 133, potassium 3.7, BUN 10, creatinine 0.50, glucose 115. EEG was performed, which was abnormal due to background slowing of moderate to severe degree, suggestive of generalized cerebral dysfunction as can be seen with toxic metabolic encephalopathy or related to diffuse structural brain abn ormality. No epileptiform activity was seen. 06/10. Patient seen and examined. Blood work done this morning showed WBC 10, hemoglobin 12.4, platelet count 191, sodium 132, potassium 3.3, BUN 9, cre atinine 0.45, Continues to be intubated. 06/11. Patient seen and examined. Clinically patient remains unchanged compared to yesterday. Patient could not tolerate sedation holiday today, became very agitated and was unable to follow any commands 06/12. Patient seen and examined. Patient extubated this morning, currently following commands. Patient was having stridor, started on Decadron by lmonology. 06/13. Patient seen and examined. Currently sitting up in the chair. Answering all questions appropriately. Patient is anxious. Stridor has resolved. pulmonary started gentle diuresis 06/14. Patient seen and examined, still complaining of lethargy, needed assistance with ambulation. REVIEW OF SYSTEMS: Denies chest pain Denies nausea or vomiting PHYSICAL EXAMINATION: GENERAL: The patient is alert, not in any acute distress. Well developed, well nourished. HEENT: Pupils are round and equally reacting to light. EOMI. No scleral icterus. CARDIOVASCULAR: S1 and S2 present. No murmurs, rubs, or gallops. PULMONARY: Chest is clear to auscultation, no wheezing or crackles. ABDOMEN: Soft, nontender, nondistended, normoactive bowel sounds. No palpable organomegaly. MUSCULOSKELETAL: No joint swelling or deformity. EXTREMITIES: No cyanosis, clubbing, or pedal edema. NEUROLOGICAL: Moving all extremity SKIN: No rashes. Assessment and plan Acute metabolic encephalopathy Acute hypoxic respiratory failure Polysubstance abuse Morbid obesity Monitor vital signs Monitor CBC Monitor CMP Aggressive bronchopulmonary hygiene Continue Decadron Continue IV Unasyn EEG was performed, which was abnormal due to background slowing of moderate to severe degree, suggestive of generalized cerebral dysfunction as can be seen with toxic metabolic encephalopathy or related to diffuse structural brain abnormality. No epileptiform activity was seen. Repeat CT scan of the brain on 06/08 showed no acute abnormality 2D echo revealed mild left ventricular dysfunction. LVEF 45 to 50%. Severely increased left ventricular diastolic volume. Severely increased left ventricular systolic volume. Global hypokinesis with regional variability. Moderately increased left atrial volume. No valvular abnormalities. Neurology following ICU following Consulted psychiatry Labs and medication were reviewed.. Continue same treatment. Continue with symptomatic treatment. Resume home medication. Monitor labs and vitals. DVT and GI prophylaxis. Further recommendations as per clinical course of the patient Dictation was produced using [employer] dictation software. please excuse any grammatical, word or spelling errors. Objective - Vital Signs Vital signs: Vital Signs Temp 98.8 F 06/15/23 07:36 Pulse 88 06/15/23 08:54 Resp 18 06/15/23 07:36 BP 138/85 06/15/23 07:36 Pulse Ox 96 06/15/23 07:36 FiO2 35 06/14/23 07:38 Intake & Output 06/14/23 06/15/23 06/15/23 18:59 06:59 18:59 Intake Total 272.377 540 Output Total 1625 Balance -1352.623 540 Weight 147.2 kg Intake: IV 160 Sodium Chloride 0.9% 1, 160 000 ml @ 20 mls/hr IV . Q24H JASMIN Rx#:[id number] Intake, IV Titration 12.377 Amount Dexmedetomidine/0.9% NaCl 12.377 (Pmx) 400 mcg In Empty Bag 1 bag @ 0.2 MCG/KG/HR 7.735 mls/hr IV .[id number] JASMIN Rx#:[id number] Oral 100 540 Output: Urine 1625 Other: Voiding Method Indwelling Catheter # Voids 0 5 # Bowel Movements 1 ABP, PAP, CO, CI - Last Documented Arterial Blood Pressure 104/86 - Labs CBC & Chem 7: 06/14/23 04:00 06/14/23 03:56 Labs: Microbiology - Last 24 Hours (Table) 06/09/23 04:09 Blood Culture - Final Blood
--- NOTE | 2023-06-15 14:23 | P.PN ---
Subjective Progress Note Date: 06/15/23 52-year-old morbidly obese female patient, came into the emergency department after the patient was found to be face down in the bathroom by her boyfriend. Unfortunately, not a whole lot of history is available on this patient's presentation. She was last seen normal approximately 1-1/2 to 2 hours ago by the boyfriend. The fire department came to her but bathroom and after extensive manipulation she was able to be moved out and brought into the hospital. In the emergency, the patient was obtunded, not protecting her airways and she had an initial NIH score of 14. Code stroke was declared. The patient was further evaluated by emergency department physician and neuro interventionalists. A CT scan of the brain was done that showed left parietal scalp hematoma without any other acute abnormalities. CT angiogram was also done that showed no occlusion of the major arteries. No aneurysm identified. Based on that, the patient was not given thrombolytics and she was not found to be a candidate for thrombolysis. Subsequently, the patient was intubated and placed on mechanical ventilator and she was moved to the intensive care unit. At this point in time, the patient is on propofol which is running at 40 mcg/kg/min. She grimaces to deep painful stimulation. She is hemodynamically stable and she is afebrile. No seizure activity has been noted. No neck stiffness. No fever. The white cell count is at 8.1 with a hemoglobin of 13.2 and a platelet count of 232. Normal coagulation profile. BUN is at 15 with a creatinine of 0.7 and a sodium levels at 135. Currently she is on assist-control mode of mechanical ventilation with a rate of 16, tidal volume of 450, FiO2 of 50% with a PEEP of 5. The blood gas showed a pH of 7.44 with a pCO2 of 41 and pO2 of 361 and this was on FiO2 of 100% post intubation. The liver function tests are showing an AST of 30, ALT of 37, alk phos is 188, ammonia level is less than 9, CPK 59. Troponins are negative. UA is negative. Urine drug screen is positive for tricyclic's and amphetamine and marijuana. Alcohol level is less than 10. No significant acidosis. Serum bicarb is at 30, potassium level 4.7 and sodium levels at 135. Normal coagulation profile. Chest x-ray post intubation showed some mild pulm vascular congestion. No airspace disease or consolidation. There is some limited patchy perihilar infiltrates on the right probably related to the deep ET tube that was retracted and subsequent chest x-ray showed no change in the patchy bilateral airspace opacities. Hemodynamically stable. Pierson catheter is in place. Urine output is adequate. IV fluids are in the form of normal saline at rate of 120 cc an hour. Patient evaluated today on 06/09/2023, patient is intubated and mechanically ventilated. She is on assist-control rate 16 tidal volume 450 FiO2 40% and PEEP of 5, ABG this morning showed a pO2 of 175 pCO2 42 pH of 7.45 hence FiO2 was cut down to 35%. Patient is requiring propofol at 75 mcg/kg/min she is also on Versed 5 mg/h 0.9 normal saline at 125 cc/h and I cut it down to 75 patient is on Unasyn empirically, she is also on Lovenox for DVT prophylaxis, patient is positive for amphetamine, tricyclic's, marijuana, neurology consultation is pending.The workup is nondiagnostic, and could not explain her episode of unresponsiveness, labs were reviewed, drug screen was reviewed CT angiogram showed no acute findings in the arteries of the neck CT of the brain showed a left parietal scalp hematoma and no intracranial process noted patient remains unresponsive to any stimuli, her pupils are equally reactive to light. Reevaluated today on 06/10/2023, patient is intubated and mechanically ventil ated, on assist-control rate of 16 tidal volume 450 FiO2 35% and PEEP of 5, ABG showed a pO2 of 124 pCO2 41 pH of 7.46. Patient remains on 35% FiO2. Patient is receiving propofol at 40 mcg/kg/min she is also on Versed at 1 mg/h. CT of the brain showed soft tissue/scalp left parietal swelling patient remains on Unasyn empirically for presumptive aspiration, possible aspiration pneumonia patient remains a bit restless, does not follow any commands, her EEG showed no evidence of seizures. Neurology is feeling that the patient most likely had acute toxic metabolic encephalopathy, now I am wondering if the patient had very low blood pressure when she fell and she passed out, may have developed some anoxic brain injury. In the meantime we are continuing supportive care measures including ventilatory support, nutritional support, antibiotics for presumptive aspiration, and mostly supportive care measures. Including GI and DVT prophylaxis, and checking daily labs. And daily x-rays of the chest. Chest x- ray today showed bilateral patchy airspace opacities, most likely consistent with aspiration pneumonia. WBC count today is 4.7 hemoglobin is 11.7. Basic metabolic profile is normal, renal profile is normal Patient was reevaluated today on 06/11/2023 remains in the ICU, intubated and mechanically ventilated. She is on assist-control rate of 16 tidal volume 450 FiO2 35% PEEP of 5 ABG showed a pO2 of 134 pCO2 40 pH of 7.48, hence no changes were made in vent settings. Chest x-ray is showing mostly bibasilar infiltrates right more so than left, suspicious for aspiration pneumonia. WBC count today is 10 hemoglobin 12.4 platelets are 191. Basic metabolic profile is normal e xcept for low potassium being addressed and treated accordingly.Renal profile is normal with BUN of 9 creatinine 0.45.Blood cultures and sputum cultures have been negative since admission. Clinically the patient is the same, she moves her head right and left, no purposeful movement noted. Patient withdraws to deep painful stimuli, otherwise no other neurological responses are noted. Pupils are equal and reactive to light. Patient was evaluated today on 06/12/2023, remains in the ICU, intubated and mechanically ventilated. Her mental status remains poor, off sedation the patient was still unresponsive to any stimuli except she gets to be agitated thrashing in bed, no purposeful movement, shaking her head left and right, but no purposeful movement whatsoever. Patient did not comprehend any instructions post sedation holiday. Has she had to be placed back on propofol at 50 mcg/kg/min, Versed is presently on hold. Seems to be status sedated enough with propofol, not requiring much to calm her down and ventilate the patient properly. Chest x-ray continues to show right basilar and left basilar atelectasis/infiltrates, I believe this is more or less an aspiration pneumonia unless proven otherwise. Remains on Zosyn. Her vent settings are 16/450/35/5 ABG showed a pO2 of 119 pCO2 47 pH of 7.39, hence no changes were made in the vent settings. WBC count is 7.9 hemoglobin is 11.1. Basic metabolic profile is normal, renal profile is normal blood cultures and sputum cultures are negative Reevaluate today on 06/13/2023, patient remains in the ICU, intubated and mechanically ventilated. Surprisingly, the patient seem to be awake, she is off sedation, she is able to follow simple instructions like wiggling toes closing eyes however the patient could not concentrate but she seems to be quite gagging on the endotracheal tube and orogastric tube, reviewed her chest x-ray, reviewed her blood gases, reviewed all labs, and noted that the patient was quite irritated with the endotracheal tube and orogastric tube, hence I decided to extubate the patient and placed on nasal cannula. ABG this morning showed a pO2 of 134 pCO2 41 pH of 7.47 CBC was noted to be normal with WC count of 7.9 hemoglobin 11.1, electrolytes were noted to be normal, And renal profile was normal with BUN of 10 creatinine 0.43. Magnesium is 2.1. Chest x-ray showed improving bibasilar infiltrates which were felt to be related to aspiration pneumonia Patient was reevaluated today on 06/14/2023, patient remains in the ICU, he was extubated yesterday, however she required to go on BiPAP, patient also required Decadron for post extubation stridor, she also required Precedex for agitation while on BiPAP, however today and this morning the patient seems to be much better, her mentation has significantly improved, she is now fully alert and oriented, and she does not seem to be in any distress. She is now on 3 L nasal cannula with O2 saturation of 96%. Hemodynamically stable with a blood pressure of 147/47, relatively normal CBC with WBC of 9.4 hemoglobin 12.6, electrolytes are normal BUN is 18 creatinine 0.5 urine output has been low today hence I recommended a dose of Lasix to be given. X-ray is showing worsening patchy and confluent bilateral airspace disease, it is not clear to me whether the findings are findings of aspiration pneumonia with I believe superimposed interstitial edema. Hoping will improve with diuretics, in the meantime the patient is on Zosyn for presumptive aspiration pneumonia on his initial presentation The patient is seen today June 15, 2023 in follow-up on the regular medical floor. She was transferred out of the intensive care unit yesterday. She is doing quite well. She is resting comfortably in bed. Maintaining O2 saturations in the 90s on room air. She has a dry nonproductive cough. No worsening peripheral edema. She is anxious to go home. X-ray continues to show some patchy bilateral airspace disease right greater than left. Small effusions. Sputum culture revealed no growth. Blood cultures revealed no growth. Blood sugar 99. She remains on bronchodilators, Unasyn, Lovenox for DVT prophylaxis. Objective - Vital Signs Vital signs: Vital Signs Temp 98.8 F 06/15/23 07:36 Pulse 80 06/15/23 12:02 Resp 18 06/15/23 07:36 BP 138/85 06/15/23 07:36 Pulse Ox 96 06/15/23 07:36 FiO2 35 06/14/23 07:38 Intake & Output 06/14/23 06/15/23 06/15/23 18:59 06:59 18:59 Intake Total 272.377 540 Output Total 1625 Balance -1352.623 540 Weight 147.2 kg Intake: IV 160 Sodium Chloride 0.9% 1, 160 000 ml @ 20 mls/hr IV . Q24H JASMIN Rx#:[id number] Intake, IV Titration 12.377 Amount Dexmedetomidine/0.9% NaCl 12.377 (Pmx) 400 mcg In Empty Bag 1 bag @ 0.2 MCG/KG/HR 7.735 mls/hr IV .[id number] JASMIN Rx#:[id number] Oral 100 540 Output: Urine 1625 Other: Voiding Method Indwelling Catheter # Voids 0 5 # Bowel Movements 1 ABP, PAP, CO, CI - Last Documented Arterial Blood Pressure 104/86 - Exam GENERAL EXAM: Alert, obese, oriented, pleasant 52-year-old female, on room air, comfortable in no apparent distress. HEAD: Normocephalic. EYES: Normal reaction of pupils, equal size. NOSE: Clear with pink turbinates. THROAT: No erythema or exudates. NECK: No masses, no JVD. CHEST: No chest wall deformity. LUNGS: Equal air entry with crackles in the posterior bases. CVS: S1 and S2 normal with no audible murmur, regular rhythm. ABDOMEN: No hepatosplenomegaly, normal bowel sounds, no guarding or rigidity. SPINE: No scoliosis or deformity SKIN: No rashes CENTRAL NERVOUS SYSTEM: No focal deficits, tone is normal in all 4 extremities. EXTREMITIES: There is no peripheral edema. No clubbing, no cyanosis. Peripheral pulses are intact. - Labs CBC & Chem 7: 06/14/23 04:00 06/14/23 03:56 Labs: Microbiology - Last 24 Hours (Table) 06/09/23 04:09 Blood Culture - Final Blood Assessment and Plan Assessment: Acute mental status change exact etiology remains unclear, suspect acute toxic metabolic encephalopathy, possible anoxic brain injury. Recovered and oriented Intubation to protect airways, patient was not hypoxic or hypercapnic and intubation was mostly done for airways protection. Recovered and on room air Morbid obesity Perihilar patchy infiltrates, possible aspiration pneumonia, remains on Unasyn, underlying interstitial edema is not entirely ruled out, felt to be less likely Positive drug screen for tricyclic antidepressants, amphetamines, marijuana Scalp hematoma secondary to fall Plan: The patient was seen and evaluated Labs and medications reviewed Chest x-ray reviewed Continue the current treatment plan Stable and on room air Hoping to go home soon We will continue to follow I have personally seen and examined the patient, performed the documentation and the assessment and plan as written. Number of minutes spent on the visit: 10.
--- NOTE | 2023-06-15 15:37 | P.CN ---
Psychiatric Consult - . Consult date: 06/15/23 Consult:: 06/15/23 15:34 The patient was seen and chart reviewed case discussed with nursing staff. Subjective the patient denies any suicidality or homicidality she says she has had trouble with depression long-term and she uses amitriptyline for sleep and it works well she says she is only been taking 1 Wellbutrin at home. She says she sleeps well on amitriptyline and depression is well controlled most of the time. Objective she is alert cooperative pleasant good eye contact and normal response times she does not evidence any ladarius and denies any in the past no psychotic symptoms. She is not tearful not irritable. There is not a lot of reason to take Wellbutrin at 150th seldom works at that dose nor is it augmenting anything else at that dose. Her amitriptyline is a decent dose and she tolerates it well but does not make her hungry or groggy during the day I think for extra coverage for depression and it would be helpful to increase it 150 and by getting rid of the Wellbutrin which is too low to work she has one less medication which I think will aid with compliance. Assessment I do not think that she is danger to self or others at this point.
[2023-06-15 16:34] LABS: Glucose,Whole Blood 96 mg/dL (70-110)
[2023-06-15] MEDS: AMITRIPTYLINE HCL 50 MG TAB PO SCH (20:45)
[2023-06-15] MEDS: oxyCODONE-APAP 7.5-325MG 1 EACH TAB PO PRN (20:52)
[2023-06-15] MEDS ORDERED: oxyCODONE-APAP 7.5-325MG 1 EACH TAB PO SCH (21:00)
[2023-06-15 21:14] LABS: Glucose,Whole Blood 96 mg/dL (70-110)
[2023-06-16 06:55] LABS: Glucose,Whole Blood 89 mg/dL (70-110)
[2023-06-16 11:16] LABS: Glucose,Whole Blood 80 mg/dL (70-110)
--- NOTE | 2023-06-16 14:27 | P.PN ---
Subjective Progress Note Date: 06/16/23 52-year-old morbidly obese female patient, came into the emergency department after the patient was found to be face down in the bathroom by her boyfriend. Unfortunately, not a whole lot of history is available on this patient's presentation. She was last seen normal approximately 1-1/2 to 2 hours ago by the boyfriend. The fire department came to her but bathroom and after extensive manipulation she was able to be moved out and brought into the hospital. In the emergency, the patient was obtunded, not protecting her airways and she had an initial NIH score of 14. Code stroke was declared. The patient was further evaluated by emergency department physician and neuro interventionalists. A CT scan of the brain was done that showed left parietal scalp hematoma without any other acute abnormalities. CT angiogram was also done that showed no occlusion of the major arteries. No aneurysm identified. Based on that, the patient was not given thrombolytics and she was not found to be a candidate for thrombolysis. Subsequently, the patient was intubated and placed on mechanical ventilator and she was moved to the intensive care unit. At this point in time, the patient is on propofol which is running at 40 mcg/kg/min. She grimaces to deep painful stimulation. She is hemodynamically stable and she is afebrile. No seizure activity has been noted. No neck stiffness. No fever. The white cell count is at 8.1 with a hemoglobin of 13.2 and a platelet count of 232. Normal coagulation profile. BUN is at 15 with a creatinine of 0.7 and a sodium levels at 135. Currently she is on assist-control mode of mechanical ventilation with a rate of 16, tidal volume of 450, FiO2 of 50% with a PEEP of 5. The blood gas showed a pH of 7.44 with a pCO2 of 41 and pO2 of 361 and this was on FiO2 of 100% post intubation. The liver function tests are showing an AST of 30, ALT of 37, alk phos is 188, ammonia level is less than 9, CPK 59. Troponins are negative. UA is negative. Urine drug screen is positive for tricyclic's and amphetamine and marijuana. Alcohol level is less than 10. No significant acidosis. Serum bicarb is at 30, potassium level 4.7 and sodium levels at 135. Normal coagulation profile. Chest x-ray post intubation showed some mild pulm vascular congestion. No airspace disease or consolidation. There is some limited patchy perihilar infiltrates on the right probably related to the deep ET tube that was retracted and subsequent chest x-ray showed no change in the patchy bilateral airspace opacities. Hemodynamically stable. Pierson catheter is in place. Urine output is adequate. IV fluids are in the form of normal saline at rate of 120 cc an hour. Patient evaluated today on 06/09/2023, patient is intubated and mechanically ventilated. She is on assist-control rate 16 tidal volume 450 FiO2 40% and PEEP of 5, ABG this morning showed a pO2 of 175 pCO2 42 pH of 7.45 hence FiO2 was cut down to 35%. Patient is requiring propofol at 75 mcg/kg/min she is also on Versed 5 mg/h 0.9 normal saline at 125 cc/h and I cut it down to 75 patient is on Unasyn empirically, she is also on Lovenox for DVT prophylaxis, patient is positive for amphetamine, tricyclic's, marijuana, neurology consultation is pending.The workup is nondiagnostic, and could not explain her episode of unresponsiveness, labs were reviewed, drug screen was reviewed CT angiogram showed no acute findings in the arteries of the neck CT of the brain showed a left parietal scalp hematoma and no intracranial process noted patient remains unresponsive to any stimuli, her pupils are equally reactive to light. Reevaluated today on 06/10/2023, patient is intubated and mechanically ventil ated, on assist-control rate of 16 tidal volume 450 FiO2 35% and PEEP of 5, ABG showed a pO2 of 124 pCO2 41 pH of 7.46. Patient remains on 35% FiO2. Patient is receiving propofol at 40 mcg/kg/min she is also on Versed at 1 mg/h. CT of the brain showed soft tissue/scalp left parietal swelling patient remains on Unasyn empirically for presumptive aspiration, possible aspiration pneumonia patient remains a bit restless, does not follow any commands, her EEG showed no evidence of seizures. Neurology is feeling that the patient most likely had acute toxic metabolic encephalopathy, now I am wondering if the patient had very low blood pressure when she fell and she passed out, may have developed some anoxic brain injury. In the meantime we are continuing supportive care measures including ventilatory support, nutritional support, antibiotics for presumptive aspiration, and mostly supportive care measures. Including GI and DVT prophylaxis, and checking daily labs. And daily x-rays of the chest. Chest x- ray today showed bilateral patchy airspace opacities, most likely consistent with aspiration pneumonia. WBC count today is 4.7 hemoglobin is 11.7. Basic metabolic profile is normal, renal profile is normal Patient was reevaluated today on 06/11/2023 remains in the ICU, intubated and mechanically ventilated. She is on assist-control rate of 16 tidal volume 450 FiO2 35% PEEP of 5 ABG showed a pO2 of 134 pCO2 40 pH of 7.48, hence no changes were made in vent settings. Chest x-ray is showing mostly bibasilar infiltrates right more so than left, suspicious for aspiration pneumonia. WBC count today is 10 hemoglobin 12.4 platelets are 191. Basic metabolic profile is normal e xcept for low potassium being addressed and treated accordingly.Renal profile is normal with BUN of 9 creatinine 0.45.Blood cultures and sputum cultures have been negative since admission. Clinically the patient is the same, she moves her head right and left, no purposeful movement noted. Patient withdraws to deep painful stimuli, otherwise no other neurological responses are noted. Pupils are equal and reactive to light. Patient was evaluated today on 06/12/2023, remains in the ICU, intubated and mechanically ventilated. Her mental status remains poor, off sedation the patient was still unresponsive to any stimuli except she gets to be agitated thrashing in bed, no purposeful movement, shaking her head left and right, but no purposeful movement whatsoever. Patient did not comprehend any instructions post sedation holiday. Has she had to be placed back on propofol at 50 mcg/kg/min, Versed is presently on hold. Seems to be status sedated enough with propofol, not requiring much to calm her down and ventilate the patient properly. Chest x-ray continues to show right basilar and left basilar atelectasis/infiltrates, I believe this is more or less an aspiration pneumonia unless proven otherwise. Remains on Zosyn. Her vent settings are 16/450/35/5 ABG showed a pO2 of 119 pCO2 47 pH of 7.39, hence no changes were made in the vent settings. WBC count is 7.9 hemoglobin is 11.1. Basic metabolic profile is normal, renal profile is normal blood cultures and sputum cultures are negative Reevaluate today on 06/13/2023, patient remains in the ICU, intubated and mechanically ventilated. Surprisingly, the patient seem to be awake, she is off sedation, she is able to follow simple instructions like wiggling toes closing eyes however the patient could not concentrate but she seems to be quite gagging on the endotracheal tube and orogastric tube, reviewed her chest x-ray, reviewed her blood gases, reviewed all labs, and noted that the patient was quite irritated with the endotracheal tube and orogastric tube, hence I decided to extubate the patient and placed on nasal cannula. ABG this morning showed a pO2 of 134 pCO2 41 pH of 7.47 CBC was noted to be normal with WC count of 7.9 hemoglobin 11.1, electrolytes were noted to be normal, And renal profile was normal with BUN of 10 creatinine 0.43. Magnesium is 2.1. Chest x-ray showed improving bibasilar infiltrates which were felt to be related to aspiration pneumonia Patient was reevaluated today on 06/14/2023, patient remains in the ICU, he was extubated yesterday, however she required to go on BiPAP, patient also required Decadron for post extubation stridor, she also required Precedex for agitation while on BiPAP, however today and this morning the patient seems to be much better, her mentation has significantly improved, she is now fully alert and oriented, and she does not seem to be in any distress. She is now on 3 L nasal cannula with O2 saturation of 96%. Hemodynamically stable with a blood pressure of 147/47, relatively normal CBC with WBC of 9.4 hemoglobin 12.6, electrolytes are normal BUN is 18 creatinine 0.5 urine output has been low today hence I recommended a dose of Lasix to be given. X-ray is showing worsening patchy and confluent bilateral airspace disease, it is not clear to me whether the findings are findings of aspiration pneumonia with I believe superimposed interstitial edema. Hoping will improve with diuretics, in the meantime the patient is on Zosyn for presumptive aspiration pneumonia on his initial presentation The patient is seen today June 15, 2023 in follow-up on the regular medical floor. She was transferred out of the intensive care unit yesterday. She is doing quite well. She is resting comfortably in bed. Maintaining O2 saturations in the 90s on room air. She has a dry nonproductive cough. No worsening peripheral edema. She is anxious to go home. X-ray continues to show some patchy bilateral airspace disease right greater than left. Small effusions. Sputum culture revealed no growth. Blood cultures revealed no growth. Blood sugar 99. She remains on bronchodilators, Unasyn, Lovenox for DVT prophylaxis. The patient is seen today June 16, 2023 in follow-up on the regular medical floor. She is currently sitting up in a chair at the bedside. Awake and alert in no acute distress. She is maintaining good O2 saturations in the 90s on room air. Blood culture revealed no growth. Sputum culture revealed no growth. Blood glucose 89. She is continued on DuoNeb inhalations, continued on Unasyn. Lovenox for DVT prophylaxis. Objective - Vital Signs Vital signs: Vital Signs Temp 98.3 F 06/16/23 08:00 Pulse 84 06/16/23 11:29 Resp 15 06/16/23 02:07 BP 147/92 06/16/23 08:00 Pulse Ox 98 06/16/23 08:42 FiO2 21 06/16/23 08:42 Intake & Output 06/15/23 06/16/23 06/16/23 18:59 06:59 18:59 Intake Total 200 Balance 200 Weight 151 kg Intake: Intake, IV Titration 200 Amount Ampicillin-Sulbactam 3 gm 200 In Sodium Chloride 0.9% 100 ml @ 200 mls/hr IVPB Q6H [facility] Rx#:[id number] Other: # Voids 3 2 # Bowel Movements 1 ABP, PAP, CO, CI - Last Documented Arterial Blood Pressure 104/86 - Exam GENERAL EXAM: Alert, pleasant 52-year-old female, up in a chair, on room air, comfortable in no apparent distress. HEAD: Normocephalic. EYES: Normal reaction of pupils, equal size. NOSE: Clear with pink turbinates. THROAT: No erythema or exudates. NECK: No masses, no JVD. CHEST: No chest wall deformity. LUNGS: Equal air entry with crackles in the posterior bases. CVS: S1 and S2 normal with no audible murmur, regular rhythm. ABDOMEN: No hepatosplenomegaly, normal bowel sounds, no guarding or rigidity. SPINE: No scoliosis or deformity SKIN: No rashes CENTRAL NERVOUS SYSTEM: No focal deficits, tone is normal in all 4 extremities. EXTREMITIES: There is no peripheral edema. No clubbing, no cyanosis. Peripheral pulses are intact. - Labs CBC & Chem 7: 06/14/23 04:00 06/14/23 03:56 Assessment and Plan Assessment: Acute mental status change exact etiology remains unclear, suspect acute toxic metabolic encephalopathy, possible anoxic brain injury. Recovered and oriented Intubation to protect airways, patient was not hypoxic or hypercapnic and intubation was mostly done for airways protection. Recovered and on room air Morbid obesity Perihilar patchy infiltrates, possible aspiration pneumonia, remains on Unasyn, underlying interstitial edema is not entirely ruled out, felt to be less likely Positive drug screen for tricyclic antidepressants, amphetamines, marijuana Scalp hematoma secondary to fall Plan: The patient was seen and evaluated Labs and medications reviewed Stable and on room air Cleared for discharge from the pulmonary standpoint I have personally seen and examined the patient, performed the documentation and the assessment and plan as written. Number of minutes spent on the visit: 10.
--- NOTE | 2023-06-16 14:35 | P.PN ---
Subjective Progress Note Date: 06/16/23 I am seeing the patient for the first time during this admission. Please refer to Dr. Fam notes for further details. patient stated that she had a double for the first time at at night to help her sleep. Then she went to the bathroom to take a shower and then she felt dizzy and stumbled and fell. She feels back to baseline. She denies any history of seizures. Objective - Vital Signs Vital signs: Vital Signs Temp 98.3 F 06/16/23 08:00 Pulse 84 06/16/23 11:29 Resp 15 06/16/23 02:07 BP 147/92 06/16/23 08:00 Pulse Ox 98 06/16/23 08:42 FiO2 21 06/16/23 08:42 Intake & Output 06/15/23 06/16/23 06/16/23 18:59 06:59 18:59 Intake Total 200 Balance 200 Weight 151 kg Intake: Intake, IV Titration 200 Amount Ampicillin-Sulbactam 3 gm 200 In Sodium Chloride 0.9% 100 ml @ 200 mls/hr IVPB Q6H [facility] Rx#:[id number] Other: # Voids 3 2 # Bowel Movements 1 ABP, PAP, CO, CI - Last Documented Arterial Blood Pressure 104/86 - Exam General: Sitting in a recliner chair and is not in acute distress. Neuro: The patient is awake, alert, oriented to self, place and time. Is following simple commands. No aphasia or neglect. Pupils are round, equal and reactive to light. Visual pete are full to confrontation. EOM intact and no nystagmus. No facial weakness. No dsyarthria. Motor: Strength is 5/5 throughout. Sensation: Normal to touch throughout. - Labs CBC & Chem 7: 06/14/23 04:00 06/14/23 03:56 Assessment and Plan Assessment: * Status post unwitnessed fall, followed by altered mental status. Possible due to Marijuana use (Edible and stated it was first time she use to help her sleep) * Patient had agonal breathing when EMS arrived, intubated at the scene. Rule out hypoxic encephalopathy. Patient's mentation much improved. * Probable aspiration pneumonia. Right lower lobe infiltrate. * Ventilator dependent respiratory failure, status post extubation, today. * Obesity * History of chronic pain. * History of marijuana use Plan: * EEG was abnormal due to background slowing of moderate to severe degree, suggestive of generalized cerebral dysfunction as can be seen with toxic metabolic encephalopathy or related to diffuse structural brain abnormality. No epileptiform activity was seen. * CTA of head and neck revealed no large vessel occlusion or aneurysm. No acute findings in the arteries of the neck. * Repeat CT head showed decreasing left parietal soft tissue swelling. No acute intracranial process. * 2D echo revealed mild left ventricular dysfunction. LVEF 45 to 50%. Severely increased left ventricular diastolic volume. Severely increased left ventricular systolic volume. Global hypokinesis with regional variability. Moderately increased left atrial volume. No valvular abnormalities. * Lipid panel cholesterol 160, LDL 68, HDL 46, triglycerides 224. Lipids well-controlled. * A1c 5.3. * On aspirin 81 mg daily. * Patient on Unasyn for possible pneumonia. * Medical management as per IM * Patient states she will no longer have those edible Marijuana. I notified her that she needs to sleep with PCP/Sleep specialist for her sleeping problems. * Recommend the patient to follow-up with neurologist as outpatient within 2-3 weeks. There is no further neurological work-up. Will sign off. Please reconsult if needed. Time with Patient: Less than 30
[2023-06-16 15:54] VITALS: BP 140/94; PULSE 100; RESP 18; TEMP 98.9
--- NOTE | 2023-06-18 15:13 | P.DS ---
Providers Date of admission: 06/09/23 02:26 Attending physician: Bk Whitfield Consults: 06/09/23 01:46 Consult Physician Routine Consulting Provider: Rowena Fam Consult Reason/Comments: ams Do you want consulting provider notified?: Yes 06/09/23 02:26 Consult Physician Stat Consulting Provider: Sejal June Consult Reason/Comments: icu patient Do you want consulting provider notified?: Already Contacted 06/15/23 09:05 Consult Physician Routine Consulting Provider: Harjit Riley Consult Reason/Comments: Depression, on multiple psych medications, presenting for altered mental st Do you want consulting provider notified?: Yes Primary care physician: Stated None Hospital Course: Final Diagnosis Unwitnessed fall found down by her family this could be due to a marijuana edible patient can use for her first time to help with her sleep Acute mental status changes secondary to an acute toxic metabolic encephalopathy Intubation to protect airways recovered and on room air Possible aspiration pneumonia treated with Unasyn Polysubstance use Scalp hematoma secondary to fall [place] Chronic pain Marijuana use Discharge Disposition Patient is stable for discharge home with overall guarded prognosis. Discussed polypharmacy with the patient and to discuss further with her PCP and follow-up with psychiatry about eliminating some of her medications if possible. Psychiatry evaluated the patient and recommended to stop the Wellbutrin and increase the dosing of the amitriptyline which was done on discharge. Recommended to help with a neurologist in 2 to 3 weeks on discharge. Activity limit until follow-up with PCP patient should follow-up with Dr. Jenkins in 1 to 2 days. Pulmonology would like to see the patient in 1 week on discharge. Hospital Course Is a 52-year-old female who has no significant past medical history with the exception of obesity chronic pain and marijuana use comes into the hospital due to altered mental status and fall. Patient's boyfriend found her lying face on the floor of her restroom. She was not responsive. She was obtunded. This was called and patient was brought into the hospital for further evaluation. She was minimally responsive at that time. Patient had initial blood work done showing a white blood cell count of 8.1, hemoglobin 13.2, platelet count of 232, sodium of 135, potassium 4.3, BUN 15, creatinine of 0.73. Her urinalysis was negative for infection her urine drug toxicology was showing barbiturates amphetamines and marijuana. Initially her NIH score was 14. Code stroke was called and patient had a CT of the head done that showed a left parietal scalp hematoma. A CT angiography was completed which was negative for any occlusion of major vessels of the head and neck. Patient was not a candidate for thrombolytic therapy she was intubated in the ER and transferred to the intensive care unit. EEG was done showing abnormal back round slowing of moderate to severe decrease suggestive of generalized cerebral dysfunction with toxic metabolic encephalopathy or diffuse structural brain abnormality. No epileptiform activity was seen. As part of a neurology workup patient underwent echocardiogram which shows normal LV function. Patient did not tolerate a sedation holiday she became very agitated was unable to follow commands. Patient was then extubated on June 12. She had a stridor to be noted and was given a dose of Decadron. She was monitored overnight and weaned down to room air. Patient is now alert and oriented x 3 she does state that she took a m arijuana edible to help her sleep better and felt like this contributed to her altered mentation. Discussed with patient that she is on multiple drug classes of medications which can attribute to increased risk for falls altered mental status and respiratory depression. Patient is understanding of this. She was eval by psychiatry who did recommend to stop the Wellbutrin and crease the dose of amitriptyline. Patient is currently alert and oriented she is not having any chest pain no shortness of breath no nausea vomiting or diarrhea. She is not having any focal neurological deficits. Lungs are clear S1-S2 is auscultated abdomen is soft and nontender. Her blood work most recently reveals a sodium level of 138, potassium of 4.7, BUN of 18, creatinine of 0.50, magnesium 2.1, white blood cell count 9.4, hemoglobin stable at 12.6. Dynamically she is stable and she is cleared for discharge. Please see medication reconciliation for a list of current medications. Thank you for allowing us to participate in the care of this patient. The impression and plan of care has been dictated by Meena Trevino, Nurse Practitioner as directed. Dr. Christie MD I have performed a history and physical examination and medical decision making of this patient, discussed the same with the dictator, and agree with the dictators assessment and plan as written, documented as a scribe. Based on total visit time, I have performed more than 50% of this visit. Patient Condition at Discharge: Fair Plan - Discharge Summary Discharge Rx Participant: Yes New Discharge Prescriptions: New Aspirin 81 mg PO DAILY #30 tab Amitriptyline HCl [Elavil] 150 mg PO HS #30 tab Continue Omeprazole [PriLOSEC] 40 mg PO DAILY DULoxetine HCL [Cymbalta] 60 mg PO DAILY SUMAtriptan succinate [Imitrex] 50 mg PO DAILY PRN PRN Reason: Migraine Headache Phentermine HCl [Adipex-P] 37.5 mg PO DAILY Furosemide [Lasix] 20 - 40 mg PO DAILY PRN PRN Reason: Edema Gabapentin [Neurontin] 900 mg PO HS Cyclobenzaprine [Flexeril] 10 mg PO TID oxyCODONE-APAP 7.5-325MG [Percocet 7.5-325 mg] 1 tab PO QID PRN PRN Reason: Pain Pravastatin Sodium [Pravachol] 40 mg PO DAILY Levothyroxine Sodium [Synthroid] 100 mcg PO DAILY Gabapentin [Neurontin] 600 mg PO DAILY Metoprolol Tartrate [Lopressor] 25 mg PO DAILY Discontinued buPROPion SR [Wellbutrin SR] 150 mg PO BID Lisinopril-Hctz 20-25 mg [Zestoretic 20-25] 1 tab PO BID Amitriptyline HCl [Elavil] 100 mg PO HS Discharge Medication List Cyclobenzaprine [Flexeril] 10 mg PO TID 06/09/23 [History] DULoxetine HCL [Cymbalta] 60 mg PO DAILY 06/09/23 [History] Furosemide [Lasix] 20 - 40 mg PO DAILY PRN 06/09/23 [History] Gabapentin [Neurontin] 600 mg PO DAILY 06/09/23 [History] Gabapentin [Neurontin] 900 mg PO HS 06/09/23 [History] Levothyroxine Sodium [Synthroid] 100 mcg PO DAILY 06/09/23 [History] Metoprolol Tartrate [Lopressor] 25 mg PO DAILY 06/09/23 [History] Omeprazole [PriLOSEC] 40 mg PO DAILY 06/09/23 [History] Phentermine HCl [Adipex-P] 37.5 mg PO DAILY 06/09/23 [History] Pravastatin Sodium [Pravachol] 40 mg PO DAILY 06/09/23 [History] SUMAtriptan succinate [Imitrex] 50 mg PO DAILY PRN 06/09/23 [History] oxyCODONE-APAP 7.5-325MG [Percocet 7.5-325 mg] 1 tab PO QID PRN 06/09/23 [History] Amitriptyline HCl [Elavil] 150 mg PO HS #30 tab 06/16/23 [Rx] Aspirin 81 mg PO DAILY #30 tab 06/16/23 [Rx] Follow up Appointment(s)/Referral(s): Vinay Brown DO [Doctor of Osteopathic Medicine] - 1 Week (Office is not answering at time of discharge. Please call for follow-up appointment.) Ismael Jenkins DO [Doctor of Osteopathic Medicine] - 06/20/23 2:20 pm Ambulatory/Diagnostic Orders: Basic Metabolic Panel [LAB.AMB] Location: None Selected Complete Blood Count w/diff [LAB.AMB] Time Frame: 3 Days, Location: None Selected Activity/Diet/Wound Care/Special Instructions: Follow up with a neurologist in 2 to 3 weeks on discharge. Activity limited until follow up with PCP. Psychiatrist recommending to stop the wellbutrin and dose of elavil has been increased Repeat labs in 2 to 3 days Follow up with your PCP Dr. Jenkins in 1 to 2 days. Discharge Disposition: HOME SELF-CARE
== END 2023-06-16 20:00 | disposition home or self-care (01) | DRG 52 ==
LOC: EDBD → EC 22:48 → 2SICU 06-09 02:26 → MERGE 06-09 02:26 → 4SSUR 06-14 16:47
PROVIDERS: ADMIT Hospitalist; ATTEND Hospitalist
PROC: 0BH17EZ Insertion of Endotracheal Airway into Trachea, Via Natural or Artificial Opening (ICD-10-PCS; principal; 2023-06-08)
PROC: 5A1955Z Respiratory Ventilation, Greater than 96 Consecutive Hours (ICD-10-PCS; principal; 2023-06-08)
PROC: 4A133J1 Monitoring of Arterial Pulse, Peripheral, Percutaneous Approach (ICD-10-PCS; 2023-06-11)
PROC: 4A133B1 Monitoring of Arterial Pressure, Peripheral, Percutaneous Approach (ICD-10-PCS; 2023-06-11)
PROC: 03HY32Z Insertion of Monitoring Device into Upper Artery, Percutaneous Approach (ICD-10-PCS; 2023-06-11)
PROC: 5A09357 Assistance with Respiratory Ventilation, Less than 24 Consecutive Hours, Continuous Positive Airway Pressure (ICD-10-PCS; 2023-06-13)
DX: G92.8 Other toxic encephalopathy (principal); J96.01 Acute respiratory failure with hypoxia; J69.0 Pneumonitis due to inhalation of food and vomit; E66.01 Morbid (severe) obesity due to excess calories; J98.11 Atelectasis; G93.1 Anoxic brain damage, not elsewhere classified; F32.A Depression, unspecified; G89.29 Other chronic pain; R29.714 NIHSS score 14; F19.10 Other psychoactive substance abuse, uncomplicated; S00.03XA Contusion of scalp, initial encounter; W01.0XXA Fall on same level from slipping, tripping and stumbling without subsequent striking against object, initial encounter; S80.01XA Contusion of right knee, initial encounter; Z68.41 Body mass index [BMI] 40.0-44.9, adult; Z79.1 Long term (current) use of non-steroidal anti-inflammatories (NSAID); Z79.890 Hormone replacement therapy; Z79.899 Other long term (current) drug therapy; Z71.3 Dietary counseling and surveillance; Z56.0 Unemployment, unspecified
CPT/HCPCS: 31500; 36415; 36600; 70450; 70496; 70498; 71045; 80048; 80053; 80061; 80306; 80320; 81003; 82140; 82550; 82805; 83036; 83605; 83735; 84132; 84484; 85025; 85610; 85730; 87040; 87070; 87205; 93005; 93306; 94002; 94003; 94640; 94660; 94760; 95822; 96361; 96374; 99291

== ENCOUNTER 2024-08-14 00:15 | Inpatient (IN) | payer OTHER ==
[2024-08-14 00:30] LABS: Glucose,Whole Blood 111 mg/dL (70-110)
[2024-08-14] MEDS: LORazepam 1 MG/0.5 ML VIAL IV STA ×5 (00:30→05:51)
[2024-08-14] MEDS: LABETALOL 5 MG/ML VIAL MDV IVP STA (00:30)
--- NOTE | 2024-08-14 00:49 | ED ---
Altered Mental Status HPI - General Chief Complaint: Seizure Stated Complaint: Unnresponsive Time Seen by Provider: 08/14/24 00:17 Source: EMS, RN notes reviewed, old records reviewed Mode of arrival: EMS Limitations: altered mental status, physical limitation - History of Present Illness Initial Comments: This is a 53-year-old female who presents today after being found down by family members. Family states they were gone for a few hours she was in the kitchen on the ground found to have bruising on her head and unresponsive. EMS referred the patient to the same condition, she is breathing on room but is unresponsive to questioning does appear to have purposeful movement MD Complaint: altered mental status, confusion, decreased responsiveness, weakness Severity: severe Consistency of Symptoms: constant Context: history of similar presentation Associated Symptoms: denies other symptoms Treatments Prior to Arrival: IV fluid, oxygen, spinal immobilization - Related Data Home Medications Medication Instructions Recorded Confirmed Cyclobenzaprine [Flexeril] 10 mg PO TID 06/09/23 06/09/23 DULoxetine HCL [Cymbalta] 60 mg PO DAILY 06/09/23 06/09/23 Furosemide [Lasix] 20 - 40 mg PO DAILY PRN 06/09/23 06/09/23 Gabapentin [Neurontin] 600 mg PO DAILY 06/09/23 06/09/23 Gabapentin [Neurontin] 900 mg PO HS 06/09/23 06/09/23 Levothyroxine Sodium [Synthroid] 100 mcg PO DAILY 06/09/23 06/09/23 Metoprolol Tartrate [Lopressor] 25 mg PO DAILY 06/09/23 06/09/23 Omeprazole [PriLOSEC] 40 mg PO DAILY 06/09/23 06/09/23 Phentermine HCl [Adipex-P] 37.5 mg PO DAILY 06/09/23 06/09/23 Pravastatin Sodium [Pravachol] 40 mg PO DAILY 06/09/23 06/09/23 SUMAtriptan succinate [Imitrex] 50 mg PO DAILY PRN 06/09/23 06/09/23 oxyCODONE-APAP 7.5-325MG [Percocet 1 tab PO QID PRN 06/09/23 06/09/23 7.5-325 mg] Previous Rx's Medication Instructions Recorded Amitriptyline HCl [Elavil] 150 mg PO HS #30 tab 06/16/23 Aspirin 81 mg PO DAILY #30 tab 06/16/23 Allergies Allergy/AdvReac Type Severity Reaction Status Date / Time No Known Allergies Allergy Verified 08/14/24 00:38 Review of Systems ROS Statement: Those systems with pertinent positive or pertinent negative responses have been documented in the HPI. ROS Other: All systems not noted in ROS Statement are negative. Past Medical History Past Medical History: GERD/Reflux, Hyperlipidemia, Hypertension, Osteoarthritis (OA), Sleep Apnea/CPAP/BIPAP, Thyroid Disorder, Unable to Obtain Additional Past Medical History / Comment(s): Morbid obesity, past medical history is unknown, medications are unknown. History of Any Multi-Drug Resistant Organisms: None Reported, Unobtainable Past Surgical History: Orthopedic Surgery, Unable to Obtain Additional Past Surgical History / Comment(s): d and C Past Anesthesia/Blood Transfusion Reactions: No Reported Reaction Past Psychological History: Anxiety, Unable to Obtain Smoking Status: Former smoker, Unknown if ever smoked Past Alcohol Use History: None Reported, Unable to Obtain Past Drug Use History: None Reported, Unable to Obtain General Exam General appearance: alert, in no apparent distress Head exam: Present: atraumatic, normocephalic, normal inspection Eye exam: Present: normal appearance, PERRL, EOMI. Absent: scleral icterus, conjunctival injection, periorbital swelling ENT exam: Present: normal exam, mucous membranes moist Neck exam: Present: normal inspection. Absent: tenderness, meningismus, lymphadenopathy Respiratory exam: Present: normal lung sounds bilaterally. Absent: respiratory distress, wheezes, rales, rhonchi, stridor Cardiovascular Exam: Present: regular rate, normal rhythm, normal heart sounds. Absent: systolic murmur, diastolic murmur, rubs, gallop, clicks GI/Abdominal exam: Present: soft, normal bowel sounds. Absent: distended, tenderness, guarding, rebound, rigid Extremities exam: Present: normal inspection, full ROM, normal capillary refill. Absent: tenderness, pedal edema, joint swelling, calf tenderness Back exam: Present: normal inspection Neurological exam: Present: alert, oriented X3, CN II-XII intact Psychiatric exam: Present: normal affect, normal mood Skin exam: Present: warm, dry, intact, normal color. Absent: rash Course Vital Signs 08/14/24 08/14/24 08/14/24 00:16 01:28 03:00 Temperature 97.3 F L Pulse Rate 105 H 78 75 Respiratory 24 16 15 Rate Blood Pressure 110/98 134/89 133/94 O2 Sat by Pulse 94 L 99 98 Oximetry 08/14/24 04:27 Temperature Pulse Rate 79 Respiratory 18 Rate Blood Pressure 122/68 O2 Sat by Pulse 97 Oximetry - Reevaluation(s) Reevaluation #1: 08/14/24 01:55 Medical records reviewed 08/14/24 01:56 Prior ER visit 1 yr 2 months ago for exact same similar situation states now that he is here to provide history during this visit he witnessed the patient having seizure-like activity prior to EMS evaluating the patient on that prior ER visit No one was able to witness her activity tonight as no one was home Reevaluation #2: 08/14/24 01:55 Patient is still having mild improvement in symptoms Reevaluation #3: 08/14/24 04:46 Patient appears to be coming out of being a postictal state, awake and alert Patient is starting to become aggressive Patient requiring Geodon for sedation as she has become combative with staff throwing punches at staff and screaming out Reevaluation #4: Was pt. sent in by a medical professional or institution (, PA, PRIMARY MILL ROLLER, urgent care, hospital, or care home...) When possible be specific @ -no Did you speak to anyone other than the patient for history (EMS, parent, family, police, friend...)? What history was obtained from this source @ -no Did you review nursing and triage notes (agree or disagree)? Why? @ -agree Are old charts reviewed (outside hosp., previous admission, EMS record, old EKG, old radiological studies, urgent care reports/EKG's, care home records)? Report findings @ -yes Differential Diagnosis (chest pain, altered mental status, abdominal pain women, abdominal pain men, vaginal bleeding, weakness, fever, dyspnea, syncope, headache, dizziness, GI bleed, back pain, seizure, CVA, palpatations, mental health, musculoskeletal)? @ -prior EKG interpreted by me (3pts min.). @ -yes X-rays interpreted by me (1pt min.). @ -yes negative for acute disease CT interpreted by me (1pt min.). @ -no U/S interpreted by me (1pt. min.). @ -no What testing was considered but not performed or refused? (CT, X-rays, U/S, labs)? Why? @ -none What meds were considered but not given or refused? Why? @ -none Did you discuss the management of the patient with other professionals (professionals i.e. , PA, PRIMARY M[employer]ER, lab, RT, psych nurse, bag worker, news clipping cutter, teacher, correction officer reformatory, pillowcase cutter)? Give summary @ -no Was smoking cessation discussed for >3mins.? @ -no Was critical care preformed (if so, how long)? @ -no Were there social determinants of health that impacted care today? How? (Homelessness, low income, unemployed, alcoholism, drug addiction, transportation, low edu. Level, literacy, decrease access to med. care, fdc, rehab)? @ -none Was there de-escalation of care discussed even if they declined (Discuss DNR or withdrawal of care, Hospice)? DNR status @ -no What co-morbidities impacted this encounter? (DM, HTN, Smoking, COPD, CAD, Cancer, CVA, ARF, Chemo, Hep., AIDS, mental health diagnosis, sleep apnea, morbid obesity)? @ -none Was patient admitted / discharged? Hospital course, mention meds given and route, prescriptions, significant lab abnormalities, going to OR and other pertinent info. @ - Undiagnosed new problem with uncertain prognosis? @ -no Drug Therapy requiring intensive monitoring for toxicity (Heparin, Nitro, Insulin, Cardizem)? @ -no Were any procedures done? @ -no Diagnosis/symptom? @ - Acute, or Chronic, or Acute on Chronic? @ -Acute Uncomplicated (without systemic symptoms) or Complicated (systemic symptoms)? @ -Complicated Side effects of treatment? @ -no Exacerbation, Progression, or Severe Exacerbation? @ -exacerbation Poses a threat to life or bodily function? How? (Chest pain, [place], [place], pneumonia, PE, COPD, DKA, ARF, appy, cholecystitis, CVA, Diverticulitis, Homicidal, Suicidal, threat to staff... and all critical care pts) @ -yes Reevaluation #5: Differential Altered Mental Status: Hypoglycemia, DKA, hypercapnia, ETOH, overdose, CO poisoning, trauma, myxedema coma, HTN encephalopathy, infection, encephalitis, psychosis, intercranial hemorrhage, hepatic encephalopathy, meningitis, CVA, this is not meant to be an all-inclusive list - Consultations Consultation #1: Spoke with shasha who agrees to admit this patient Medical Decision Making - Medical Decision Making 53 female for significant altered mental status suspected seizure followed by prolonged postictal state under observation she did start to come around and then became combative with staff requiring Geodon for sedation - Lab Data Result diagrams: 08/14/24 00:47 08/14/24 00:47 Lab Results 08/14/24 08/14/24 08/14/24 Range/Units 00:25 00:47 00:47 WBC 12.72 H (4.50-10.00) 10*3/uL RBC 4.41 (4.10-5.20) 10*6/uL Hgb 14.0 (12.0-15.0) g/dL Hct 41.6 (37.2-46.3) % MCV 94.3 (80.0-97.0) fL MCH 31.7 (27.0-32.0) pg MCHC 33.7 (32.0-37.0) g/dL Plt Count 288 (140-440) 10*3/uL MPV 9.8 (9.5-12.2) fL Immature Gran % (Auto) 1.5 % Neutrophils % 79.9 % Lymphocytes % 11.8 % Monocytes % 5.9 % Eosinophils % 0.7 % Basophils % 0.2 % Immature Gran # 0.19 H (0.00-0.04) 10*3/uL Neutrophils # 10.16 H (1.80-7.70) 10*3/uL Lymphocytes # 1.50 (0.90-5.00) 10*3/uL Monocytes # 0.75 (0.20-1.00) 10*3/uL Eosinophils # 0.09 (0.04-0.35) 10*3/uL Basophils # 0.03 (0.00-0.10) 10*3/uL PT (10.0-12.5) sec INR (<1.2) APTT (22.0-30.0) sec Sodium 135 L (137-145) mmol/L Potassium 4.0 (3.5-5.1) mmol/L Chloride 98 (98-107) mmol/L Carbon Dioxide 27 (22-30) mmol/L Anion Gap 10 mmol/L BUN 17 (7-17) mg/dL Creatinine 0.62 (0.52-1.04) mg/dL Est GFR (CKD-EPI)AfAm >90 (>60 ml/min/1.73 sqM) Est GFR (CKD-EPI)NonAf >90 (>60 ml/min/1.73 sqM) Glucose 111 H (74-99) mg/dL POC Glucose (mg/dL) 111 H (70-110) mg/dL POC Glu Water Safety Instructor ID Burgess Landeros Plasma Lactic Acid [place] (0.7-2.0) mmol/L Calcium 9.3 (8.4-10.2) mg/dL Phosphorus 3.7 (2.5-4.5) mg/dL Magnesium 2.2 (1.6-2.3) mg/dL Total Bilirubin 0.5 (0.2-1.3) mg/dL AST 35 (14-36) U/L ALT 29 (4-34) U/L Alkaline Phosphatase 199 H (38-126) U/L Creatine Kinase (30-135) U/L Troponin I (0.000-0.034) ng/mL NT-Pro-B Natriuret Pep 67 pg/mL Total Protein 6.8 (6.3-8.2) g/dL Albumin 4.1 (3.5-5.0) g/dL Urine Color Urine Appearance (Clear) Urine pH (5.0-8.0) Ur Specific Dale (1.001-1.035) Urine Protein (Negative) Urine Glucose (UA) (Negative) Urine Ketones (Negative) Urine Blood (Negative) Urine Nitrite (Negative) Urine Bilirubin (Negative) Urine Urobilinogen (<2.0) mg/dL Ur Leukocyte Esterase (Negative) Urine Opiates Screen (NotDetected) Ur Oxycodone Screen (NotDetected) Urine Methadone Screen (NotDetected) Ur Barbiturates Screen (NotDetected) U Tricyclic Antidepress (NotDetected) Ur Phencyclidine Scrn (NotDetected) Ur Amphetamines Screen (NotDetected) U Methamphetamines Scrn (NotDetected) U Benzodiazepines Scrn (NotDetected) Urine Cocaine Screen (NotDetected) U Marijuana (THC) Screen (NotDetected) Serum Alcohol <10 mg/dL 08/14/24 08/14/24 08/14/24 Range/Units 00:47 00:47 00:47 WBC (4.50-10.00) 10*3/uL RBC (4.10-5.20) 10*6/uL Hgb (12.0-15.0) g/dL Hct (37.2-46.3) % MCV (80.0-97.0) fL MCH (27.0-32.0) pg MCHC (32.0-37.0) g/dL Plt Count (140-440) 10*3/uL MPV (9.5-12.2) fL Immature Gran % (Auto) % Neutrophils % % Lymphocytes % % Monocytes % % Eosinophils % % Basophils % % Immature Gran # (0.00-0.04) 10*3/uL Neutrophils # (1.80-7.70) 10*3/uL Lymphocytes # (0.90-5.00) 10*3/uL Monocytes # (0.20-1.00) 10*3/uL Eosinophils # (0.04-0.35) 10*3/uL Basophils # (0.00-0.10) 10*3/uL PT 10.3 (10.0-12.5) sec INR 0.9 (<1.2) APTT 18.4 L (22.0-30.0) sec Sodium (137-145) mmol/L Potassium (3.5-5.1) mmol/L Chloride (98-107) mmol/L Carbon Dioxide (22-30) mmol/L Anion Gap mmol/L BUN (7-17) mg/dL Creatinine (0.52-1.04) mg/dL Est GFR (CKD-EPI)AfAm (>60 ml/min/1.73 sqM) Est GFR (CKD-EPI)NonAf (>60 ml/min/1.73 sqM) Glucose (74-99) mg/dL POC Glucose (mg/dL) (70-110) mg/dL POC Glu Water Safety Instructor ID Plasma Lactic Acid [place] 1.1 (0.7-2.0) mmol/L Calcium (8.4-10.2) mg/dL Phosphorus (2.5-4.5) mg/dL Magnesium (1.6-2.3) mg/dL Total Bilirubin (0.2-1.3) mg/dL AST (14-36) U/L ALT (4-34) U/L Alkaline Phosphatase (38-126) U/L Creatine Kinase (30-135) U/L Troponin I <0.012 (0.000-0.034) ng/mL NT-Pro-B Natriuret Pep pg/mL Total Protein (6.3-8.2) g/dL Albumin (3.5-5.0) g/dL Urine Color Urine Appearance (Clear) Urine pH (5.0-8.0) Ur Specific Dale (1.001-1.035) Urine Protein (Negative) Urine Glucose (UA) (Negative) Urine Ketones (Negative) Urine Blood (Negative) Urine Nitrite (Negative) Urine Bilirubin (Negative) Urine Urobilinogen (<2.0) mg/dL Ur Leukocyte Esterase (Negative) Urine Opiates Screen (NotDetected) Ur Oxycodone Screen (NotDetected) Urine Methadone Screen (NotDetected) Ur Barbiturates Screen (NotDetected) U Tricyclic Antidepress (NotDetected) Ur Phencyclidine Scrn (NotDetected) Ur Amphetamines Screen (NotDetected) U Methamphetamines Scrn (NotDetected) U Benzodiazepines Scrn (NotDetected) Urine Cocaine Screen (NotDetected) U Marijuana (THC) Screen (NotDetected) Serum Alcohol mg/dL 08/14/24 08/14/24 08/14/24 Range/Units 00:47 00:57 00:57 WBC (4.50-10.00) 10*3/uL RBC (4.10-5.20) 10*6/uL Hgb (12.0-15.0) g/dL Hct (37.2-46.3) % MCV (80.0-97.0) fL MCH (27.0-32.0) pg MCHC (32.0-37.0) g/dL Plt Count (140-440) 10*3/uL MPV (9.5-12.2) fL Immature Gran % (Auto) % Neutrophils % % Lymphocytes % % Monocytes % % Eosinophils % % Basophils % % Immature Gran # (0.00-0.04) 10*3/uL Neutrophils # (1.80-7.70) 10*3/uL Lymphocytes # (0.90-5.00) 10*3/uL Monocytes # (0.20-1.00) 10*3/uL Eosinophils # (0.04-0.35) 10*3/uL Basophils # (0.00-0.10) 10*3/uL PT (10.0-12.5) sec INR (<1.2) APTT (22.0-30.0) sec Sodium (137-145) mmol/L Potassium (3.5-5.1) mmol/L Chloride (98-107) mmol/L Carbon Dioxide (22-30) mmol/L Anion Gap mmol/L BUN (7-17) mg/dL Creatinine (0.52-1.04) mg/dL Est GFR (CKD-EPI)AfAm (>60 ml/min/1.73 sqM) Est GFR (CKD-EPI)NonAf (>60 ml/min/1.73 sqM) Glucose (74-99) mg/dL POC Glucose (mg/dL) (70-110) mg/dL POC Glu Water Safety Instructor ID Plasma Lactic Acid [place] (0.7-2.0) mmol/L Calcium (8.4-10.2) mg/dL Phosphorus (2.5-4.5) mg/dL Magnesium (1.6-2.3) mg/dL Total Bilirubin (0.2-1.3) mg/dL AST (14-36) U/L ALT (4-34) U/L Alkaline Phosphatase (38-126) U/L Creatine Kinase 57 (30-135) U/L Troponin I (0.000-0.034) ng/mL NT-Pro-B Natriuret Pep pg/mL Total Protein (6.3-8.2) g/dL Albumin (3.5-5.0) g/dL Urine Color Light Yellow Urine Appearance Clear (Clear) Urine pH 6.5 (5.0-8.0) Ur Specific Dale 1.035 (1.001-1.035) Urine Protein Negative (Negative) Urine Glucose (UA) Negative (Negative) Urine Ketones Negative (Negative) Urine Blood Negative (Negative) Urine Nitrite Negative (Negative) Urine Bilirubin Negative (Negative) Urine Urobilinogen <2.0 (<2.0) mg/dL Ur Leukocyte Esterase Negative (Negative) Urine Opiates Screen Not Detected (NotDetected) Ur Oxycodone Screen Not Detected (NotDetected) Urine Methadone Screen Not Detected (NotDetected) Ur Barbiturates Screen Not Detected (NotDetected) U Tricyclic Antidepress Detected H (NotDetected) Ur Phencyclidine Scrn Not Detected (NotDetected) Ur Amphetamines Screen Not Detected (NotDetected) U Methamphetamines Scrn Not Detected (NotDetected) U Benzodiazepines Scrn Not Detected (NotDetected) Urine Cocaine Screen Not Detected (NotDetected) U Marijuana (THC) Screen Detected H (NotDetected) Serum Alcohol mg/dL - EKG Data -: EKG Interpreted by Me (EKG is sinus 87 SD 189 QRS 112 QTc 431) - Radiology Data Radiology results: report reviewed (CT brain C-spine chest and pelvis x-ray negative for acute traumatic disease), image reviewed Disposition Clinical Impression: Altered mental status, Generalized seizure Condition: Serious Instructions (If sedation given, give patient instructions): Seizure/Epilepsy Discharge Instructions & Follow-Up Is patient prescribed a controlled substance at d/c from ED?: No Referrals: Ismael Jenkins DO [Primary Care Provider] - 1-2 days
[2024-08-14 00:56] LABS: Basophils # (A) 0.03 10*3/uL (0.00-0.10); Basophils % (A) 0.2 %; Eosinophils # (A) 0.09 10*3/uL (0.04-0.35); Eosinophils % (A) 0.7 %; HCT 41.6 % (37.2-46.3); Lymphocytes % (A) 11.8 %; MCH 31.7 pg (27.0-32.0); MCHC 33.7 g/dL (32.0-37.0); MCV 94.3 fL (80.0-97.0); Mean Platelet Volume 9.8 fL (9.5-12.2); Monocytes # (A) 0.75 10*3/uL (0.20-1.00); Monocytes % (A) 5.9 %; Neutrophils # (A) 10.16 10*3/uL (1.80-7.70); Neutrophils % (A) 79.9 %; Platelet Count 288 10*3/uL (140-440); RBC 4.41 10*6/uL (4.10-5.20); RDW 12.3 % (11.5-14.5); WBC 12.72 10*3/uL (4.50-10.00)
[2024-08-14 01:06] LABS: INR 0.9 (<1.2); Prothrombin Time 10.3 sec (10.0-12.5)
[2024-08-14 01:11] LABS: Appearance,Urine Clear (Clear); Bilirubin,Urine Negative (Negative); Blood,Urine Negative (Negative); Color,Urine Light Yellow; Glucose,Urine (UA) Negative (Negative); Ketones,Urine Negative (Negative); Leukocyte Esterase,Urine Negative (Negative); Nitrite,Urine Negative (Negative); PH, Urine 6.5 (5.0-8.0); Protein,Urine Negative (Negative); Specific Gravity,Urine 1.035 (1.001-1.035); Urobilinogen,Urine <2.0 mg/dL (<2.0)
[2024-08-14 01:16] LABS: ALT 29 U/L (4-34); AST 35 U/L (14-36); African American GFR (CKD) >90 (>60 ml/min/1.73 sqM); Albumin 4.1 g/dL (3.5-5.0); Alcohol <10 mg/dL; Alkaline Phosphatase 199 U/L (38-126); Anion Gap 10 mmol/L; Blood Urea Nitrogen 17 mg/dL (7-17); Calcium 9.3 mg/dL (8.4-10.2); Carbon Dioxide 27 mmol/L (22-30); Chloride 98 mmol/L (98-107); Glucose 111 mg/dL (74-99); Magnesium 2.2 mg/dL (1.6-2.3); Non-African American GFR(CKD) >90 (>60 ml/min/1.73 sqM); Phosphorus 3.7 mg/dL (2.5-4.5); Sodium 135 mmol/L (137-145); Total Bilirubin 0.5 mg/dL (0.2-1.3); Total Protein 6.8 g/dL (6.3-8.2)
[2024-08-14 01:21] LABS: Partial Thromboplastin Time 18.4 sec (22.0-30.0)
[2024-08-14 01:24] LABS: NT-Pro-B-Type Natriuretic Pept 67 pg/mL
[2024-08-14] MEDS: SODIUM CHLORIDE 0.9% 1,000 ML IV SCH (01:27)
--- NOTE | 2024-08-14 01:40 | CT ---
EXAM: CT Head Without Intravenous Contrast CLINICAL HISTORY: Ams TECHNIQUE: Axial computed tomography images of the head/brain without intravenous contrast. CTDI is 47.1 mGy and DLP is 1543 mGy-cm. This CT exam was performed using one or more of the following dose reduction techniques: automated exposure control, adjustment of the mA and/or kV according to patient size, and/or use of iterative reconstruction technique. COMPARISON: No relevant prior studies available. FINDINGS: Brain: No intracranial hemorrhage. No significant mass effect. No cortical infarct. The parenchyma is stable in appearance. No significant white matter disease. Ventricles: Unremarkable. No ventriculomegaly. Bones/joints: Unremarkable. No acute fracture. Soft tissues: See below. Sinuses: Unremarkable as visualized. No acute sinusitis. Mastoid air cells: Unremarkable as visualized. No mastoid effusion. Orbits: Subtle superficial contusive changes involving the right lateral periorbital region. No well-defined hematoma or radiopaque foreign body. IMPRESSION: 1. No acute intracranial process identified. 2. Subtle superficial contusive changes involving the right lateral periorbital region. No acute osseous abnormality. EXAM: CT Cervical Spine Without Intravenous Contrast CLINICAL HISTORY: Ams TECHNIQUE: Axial computed tomography images of the cervical spine without intravenous contrast. CTDI is 28.4 mGy and DLP is 930.4 mGy-cm. This CT exam was performed using one or more of the following dose reduction techniques: automated exposure control, adjustment of the mA and/or kV according to patient size, and/or use of iterative reconstruction technique. COMPARISON: No relevant prior studies available. FINDINGS: Vertebrae: There is significant motion artifact throughout the examination which degrades image quality, most significantly from C6 through the cervicothoracic junction. Accounting for limitations with significant motion artifact, there is no definite acute traumatic injury involving the vertebral bodies. The pedicles, facet joints, spinous processes and transverse processes appear to be intact. There is straightening of the normal cervical lordosis, presumably related to overlying cervical collar. Discs/spinal canal/neural foramina: Disc spondylosis, most prominent at C5-6 and C6-7 with narrowing and marginal hypertrophic osteophyte changes. Evaluation for central canal narrowing is limited. Soft tissues: Unremarkable. IMPRESSION: Limited examination secondary to diffuse motion artifact. No obvious acute osseous traumatic injury identified involving cervical spine.
[2024-08-14] MEDS: levETIRAcetam IV 500 MG/5 ML VIAL IVP STA (01:54)
--- NOTE | 2024-08-14 02:30 | XR ---
EXAM: XR Pelvis, 1 or 2 Views CLINICAL HISTORY: Pain TECHNIQUE: Frontal view of the pelvis. COMPARISON: No relevant prior studies available. FINDINGS: Bones/joints: The osseous structures appear intact without acute traumatic injury. The femoral heads are well aligned in the frontal projection. Soft tissues: Unremarkable. Tubes, lines and devices: Extensive overlying EKG lead artifact. IMPRESSION: Negative radiographic evaluation of the osseous pelvis.
--- NOTE | 2024-08-14 02:32 | XR ---
EXAM: XR Chest, 1 View CLINICAL HISTORY: Pain TECHNIQUE: Frontal view of the chest. COMPARISON: Portable chest 06/15/2023 FINDINGS: Lungs: No focal airspace consolidation. No radiographic evidence for florid CHF. Pleural space: No definite pleural effusion or pneumothorax, accounting for limitations with supine technique. Heart: Prominent cardiomegaly, increased from the previous examination. Mediastinum: No significant mediastinal widening, accounting for slight obliquity. The trachea is midline. Bones/joints: Unremarkable. No acute fracture. IMPRESSION: Prominent cardiomegaly, increased from the previous examination. No evidence for significant acute traumatic injury to the chest/thorax.
[2024-08-14 03:32] LABS: Amphetamine Screen,Urine Not Detected (NotDetected); Barbiturate Screen,Urine Not Detected (NotDetected); Benzodiazepines Screen,Urine Not Detected (NotDetected); Cocaine Screen,Urine Not Detected (NotDetected); Methadone Screen, Urine Not Detected (NotDetected); Opiate Screen,Urine Not Detected (NotDetected); Oxycodone Screen, Urine Not Detected (NotDetected); Phencyclidine Screen,Urine Not Detected (NotDetected); Tricyclic Antidepressant,Urine Detected (NotDetected); Urn Cannabinoid Scrn Detected (NotDetected)
[2024-08-14] MEDS: ZIPRASIDONE 20 MG VIAL IM STA ×2 (04:27→05:56)
[2024-08-14] MEDS ORDERED: NALOXONE 0.4 MG/ML 1 ML VIAL IV PRN (04:40)
[2024-08-14] MEDS: diphenhydrAMINE 50 MG/ML 1 ML VIAL IVP STA ×2 (05:50→05:59)
[2024-08-14] MEDS: DEXTROSE 5%-0.45% NACL 1,000 ML IV SCH (05:51)
--- NOTE | 2024-08-14 06:03 | P.HPIM ---
History of Present Illness H&P Date: 08/14/24 Chief Complaint: AMS This is a 53-year-old female patient with a past medical history of marijuana use, chronic pain syndrome and obesity who presents to the ER for alteration mental status. According to her chart she was here a year ago for alteration in mental status. She was found laying her face on the floor and she was unresponsive and obtunded. Patient back then was intubated and was admitted to the ICU. She did had an EEG which did not show any epileptiform activity. It showed bnormal back round slowing of moderate to severe decrease suggestive of generalized cerebral dysfunction with toxic metabolic encephalopathy or diffuse structural brain abnormality. Impression back then the patient may have took a marijuana edible to help her sleep better and felt like this may have contributed to her confusion. After extubation she was awake and oriented x 3 and was cleared for discharge. Patient presents by family member again for alteration mental status and she was found in the kitchen on the ground and having a bruise on her head and unresponsive. Most of the history was obtained from the ED physician as patient is confused and slightly lethargic. She is able to protect her airway so far. No one was able to witness if there might be seizure-like activity as no one was at home . According to the ED physician patient woke up and she was very combative and agitated . Questionable postictal state. She was given Geodon as patient started punching staff and screaming out . Review of system : Unable to obtain as patient is confused PE : General: confused , morbidly obese Derm: warm, dry, intact Head: atraumatic, normocephalic, symmetric Eyes: Periorbital swelling Mouth: no lip lesion, mucus membranes moist Cardiovascular: S1 S2 reg, no murmur, rubs, or gallops Lungs: CTA bilateral, no rales, no accessory muscle use Abdominal: soft, non-tender to palpataion, no appreciable organomegaly Extremities: no gross muscle atrophy, no edema, no contractures Neuro: Unable to perform neuroexam as patient is lethargic Assessment and plan : - Acute metabolic encephalopathy with questionable seizure-like activity v.s marijuana edible induced delirium : She did present a year ago with the same presentation and impression that this might be from marijuana edible Patient was loaded with KIYATECra Head CT scan was not remarkable Trauma imaging were not remarkable except for superficial contusive changes involving the right lateral periorbital region Pending ammonia level Neurology consult and EEG IM Geodon as needed Urine drug screen positive for tricyclic antidepressant and marijuana -Polysubstance abuse/morbid obesity CODE STATUS is full code DVT prophylaxis on Lovenox subcu Disposition : Home when patient is stable Time spent : 55 min Past Medical History Past Medical History: GERD/Reflux, Hyperlipidemia, Hypertension, Osteoarthritis (OA), Sleep Apnea/CPAP/BIPAP, Thyroid Disorder, Unable to Obtain Additional Past Medical History / Comment(s): Morbid obesity, past medical history is unknown, medications are unknown. History of Any Multi-Drug Resistant Organisms: None Reported, Unobtainable Past Surgical History: Orthopedic Surgery, Unable to Obtain Additional Past Surgical History / Comment(s): d and C Past Anesthesia/Blood Transfusion Reactions: No Reported Reaction Past Psychological History: Anxiety, Unable to Obtain Smoking Status: Former smoker, Unknown if ever smoked Past Alcohol Use History: None Reported, Unable to Obtain Past Drug Use History: None Reported, Unable to Obtain Medications and Allergies Home Medications Medication Instructions Recorded Confirmed Type Cyclobenzaprine [Flexeril] 10 mg PO TID 06/09/23 06/09/23 History DULoxetine HCL [Cymbalta] 60 mg PO DAILY 06/09/23 06/09/23 History Furosemide [Lasix] 20 - 40 mg PO DAILY PRN 06/09/23 06/09/23 History Gabapentin [Neurontin] 600 mg PO DAILY 06/09/23 06/09/23 History Gabapentin [Neurontin] 900 mg PO HS 06/09/23 06/09/23 History Levothyroxine Sodium [Synthroid] 100 mcg PO DAILY 06/09/23 06/09/23 History Metoprolol Tartrate [Lopressor] 25 mg PO DAILY 06/09/23 06/09/23 History Omeprazole [PriLOSEC] 40 mg PO DAILY 06/09/23 06/09/23 History Phentermine HCl [Adipex-P] 37.5 mg PO DAILY 06/09/23 06/09/23 History Pravastatin Sodium [Pravachol] 40 mg PO DAILY 06/09/23 06/09/23 History SUMAtriptan succinate [Imitrex] 50 mg PO DAILY PRN 06/09/23 06/09/23 History oxyCODONE-APAP 7.5-325MG [Percocet 1 tab PO QID PRN 06/09/23 06/09/23 History 7.5-325 mg] Amitriptyline HCl [Elavil] 150 mg PO HS #30 tab 06/16/23 Rx Aspirin 81 mg PO DAILY #30 tab 06/16/23 Rx Allergies Allergy/AdvReac Type Severity Reaction Status Date / Time No Known Allergies Allergy Verified 08/14/24 00:38 Physical Exam Vitals: Vital Signs Temp Pulse Resp BP Pulse Ox 08/14/24 05:00 70 15 115/59 98 08/14/24 04:27 79 18 122/68 97 08/14/24 03:00 75 15 133/94 98 08/14/24 01:28 78 16 134/89 99 08/14/24 00:16 97.3 F L 105 H 24 110/98 94 L Intake and Output 08/13/24 08/13/24 08/14/24 14:59 22:59 06:59 Other: Weight 145.603 kg Results CBC & Chem 7: 08/14/24 00:47 08/14/24 00:47 Labs: Abnormal Lab Results - Last 24 Hours (Table) 08/14/24 08/14/24 08/14/24 Range/Units 00:25 00:47 00:47 WBC 12.72 H (4.50-10.00) 10*3/uL Immature Gran # 0.19 H (0.00-0.04) 10*3/uL Neutrophils # 10.16 H (1.80-7.70) 10*3/uL APTT (22.0-30.0) sec Sodium 135 L (137-145) mmol/L Glucose 111 H (74-99) mg/dL POC Glucose (mg/dL) 111 H (70-110) mg/dL Alkaline Phosphatase 199 H (38-126) U/L U Tricyclic Antidepress (NotDetected) U Marijuana (THC) Screen (NotDetected) 08/14/24 08/14/24 Range/Units 00:47 00:57 WBC (4.50-10.00) 10*3/uL Immature Gran # (0.00-0.04) 10*3/uL Neutrophils # (1.80-7.70) 10*3/uL APTT 18.4 L (22.0-30.0) sec Sodium (137-145) mmol/L Glucose (74-99) mg/dL POC Glucose (mg/dL) (70-110) mg/dL Alkaline Phosphatase (38-126) U/L U Tricyclic Antidepress Detected H (NotDetected) U Marijuana (THC) Screen Detected H (NotDetected)
[2024-08-14] MEDS ORDERED: LORazepam 1 MG TAB PO PRN ×3 (06:32)
[2024-08-14] MEDS ORDERED: LORazepam 0.5 MG TAB PO PRN (06:32)
[2024-08-14] MEDS ORDERED: LORazepam 1 MG/0.5 ML VIAL IV PRN ×3 (06:32)
[2024-08-14] MEDS: MIDAZOLAM 2 MG/2 ML VIAL IM ONE (06:34)
[2024-08-14] MEDS: MORPHINE SULFATE 4 MG/ML SYRINGE IV PRN (07:41)
[2024-08-14] MEDS: levETIRAcetam IV 500 MG/5 ML VIAL IVP SCH ×2 (08:20→20:44)
[2024-08-14] MEDS: ENOXAPARIN 60 MG/0.6 ML SYRINGE SQ SCH (08:37)
[2024-08-14] MEDS ORDERED: ENOXAPARIN 40 MG/0.4 ML SYRINGE SQ SCH (09:00)
--- NOTE | 2024-08-14 12:02 | P.CNNES ---
History of Present Illness Consult date: 08/14/24 Requesting physician: Wilbert Rm Reason for Consult: cece keith History of Present Illness: This is a 53-year-old woman who presents to the emergency department since the patient was found down by family members. History is obtained from medical record since patient does not recall what transpired. According to the patient also remembers is being in the hospital and does not recall what transpired. Upon asking her if her boyfriend witnessed any seizure-like activity she stated that she is as a recall of given that information. Per the ED physician it seems the family states that they were gone for a few hours and she was in the kitchen on the ground having bruises on her head and unresponsive when they came back to see her. When the EMS arrived the patient was unresponsive to questioning and she was breathing at room air and had purposeful movement. Patient denies any aura prior to passing out. She does not recall what transpired as stated above. She denies any tongue bite, urinary or bowel incontinence. Patient states that she is using small amount of marijuana that edible. Denies any illicit drug use. Denies any alcohol use. Any focal weakness or numbness. Denies any recent fevers or sickness. Patient states she has mild depression but not significant. Patient was seen by our neurology team a month ago, initially by my colleague Dr. Fam then later by me. The patient had a fall that was unwitnessed and it was felt possibly due to marijuana use. She had an EEG which was negative for any seizures. It seems homa was the first time to help with the sleep. Please refer to our notes for further details. Some of the workup during this hospital visit consisted of: Next Patient is afebrile Initial serum glucose was 111, sodium is 135, calcium is 9.3, phosphorus 3.7, magnesium is 2.2, ammonia level is less than 9, AST ALT is within normal limits Urine drug screen is positive for tricyclic antidepressant and marijuana. CT of the head is reported as no acute intracranial process identified. Subtle superficial contusive changes involving the right lateral periorbital region. No acute osseous abnormality. I personally reviewed the CT of the head and I agree there is no acute or subacute ischemic stroke or any mass effect. CT cervical spine is reported as limited examination secondary due to diffuse motion artifact. No obvious acute osseous traumatic injury identified involving the cervical spine. Reviewed the CT cervical spine and I agree there is motion artifact. Review of Systems Limited but as per HPI. Past Medical History Past Medical History: GERD/Reflux, Hyperlipidemia, Hypertension, Osteoarthritis (OA), Sleep Apnea/CPAP/BIPAP, Thyroid Disorder, Unable to Obtain Additional Past Medical History / Comment(s): Morbid obesity, past medical history is unknown, medications are unknown. History of Any Multi-Drug Resistant Organisms: None Reported, Unobtainable Past Surgical History: Orthopedic Surgery, Unable to Obtain Additional Past Surgical History / Comment(s): d and C Past Anesthesia/Blood Transfusion Reactions: No Reported Reaction Past Psychological History: Anxiety, Unable to Obtain Smoking Status: Former smoker, Unknown if ever smoked Past Alcohol Use History: None Reported, Unable to Obtain Past Drug Use History: None Reported, Unable to Obtain Medications and Allergies Home Medications Medication Instructions Recorded Confirmed Type Cyclobenzaprine [Flexeril] 10 mg PO TID 06/09/23 08/14/24 History DULoxetine HCL [Cymbalta] 60 mg PO DAILY 06/09/23 08/14/24 History Furosemide [Lasix] 60 mg PO DAILY PRN 06/09/23 08/14/24 History Gabapentin [Neurontin] 600 mg PO DAILY 06/09/23 08/14/24 History Gabapentin [Neurontin] 900 mg PO HS 06/09/23 08/14/24 History Levothyroxine Sodium [Synthroid] 100 mcg PO DAILY 06/09/23 08/14/24 History Metoprolol Tartrate [Lopressor] 25 mg PO DAILY 06/09/23 08/14/24 History Omeprazole [PriLOSEC] 40 mg PO DAILY 06/09/23 08/14/24 History Pravastatin Sodium [Pravachol] 40 mg PO DAILY 06/09/23 08/14/24 History SUMAtriptan succinate [Imitrex] 50 mg PO DAILY PRN 06/09/23 08/14/24 History Amitriptyline HCl [Elavil] 100 - 150 mg PO HS 08/14/24 08/14/24 History Lisinopril-Hctz 20-25 mg 1 tab PO DAILY 08/14/24 08/14/24 History [Zestoretic 20-] Nabumetone [Relafen] 750 mg PO BID 08/14/24 08/14/24 History buPROPion XL [Wellbutrin XL] 300 mg PO DAILY 08/14/24 08/14/24 History hydroCHLOROthiazide [Hydrodiuril] 25 mg PO DAILY 08/14/24 08/14/24 History oxyCODONE-APAP 10-325MG [Percocet 1 tab PO QID 08/14/24 08/14/24 History 10-325 mg] Allergies Allergy/AdvReac Type Severity Reaction Status Date / Time No Known Allergies Allergy Verified 08/14/24 10:18 Physical Examination - Vital Signs Vital Signs: Vital Signs Temp Pulse Resp BP Pulse Ox 08/14/24 11:26 98.1 F 62 16 118/81 98 08/14/24 07:00 71 18 125/50 99 08/14/24 05:00 70 15 115/59 98 08/14/24 04:27 79 18 122/68 97 08/14/24 03:00 75 15 133/94 98 08/14/24 01:28 78 16 134/89 99 08/14/24 00:16 97.3 F L 105 H 24 110/98 94 L Intake and Output 08/13/24 08/14/24 08/14/24 22:59 06:59 14:59 Other: Weight 145.603 kg GENERAL: The patient is lying in bed and is not in acute distress. HENT: Bruise over the nose. NEUROLOGICAL: Higher mental function: The patient is awake, alert, oriented to self, place and correctly stated the current month but stated the year is 2004. Is following commands appropriately. No aphasia and no neglect. Cranial nerves: The pupils are round, equal and reactive to light and accommodation. Visual pete are full to confrontation throughout. Extraocular movement is intact no nystagmus is noted. Facial sensation is normal to touch throughout. The facial strength is normal throughout. Hearing is normal bi laterally to hand rub. Tongue is midline and moved [id number] without any difficulty. No dysarthria is noted. Shoulder shrug is normal bilaterally. Motor: The strength is limited since has bruises in left arms and leg. Otherwise, lifting all extremities above gravity and appears symmetrical. Normal tone and bulk. Cerebellum: Normal finger to nose bilaterally. Sensation: Sensation is normal to touch throughout. Reflexes (right/left): limited because of pain. Plantars are mute bilaterally. Results - Laboratory Findings CBC and BMP: 08/14/24 00:47 08/14/24 00:47 Abnormal Lab Findings: Abnormal Labs 08/14/24 08/14/24 08/14/24 00:25 00:47 00:47 WBC 12.72 H Immature Gran # 0.19 H Neutrophils # 10.16 H APTT Sodium 135 L Glucose 111 H POC Glucose (mg/dL) 111 H Alkaline Phosphatase 199 H U Tricyclic Antidepress U Marijuana (THC) Screen 08/14/24 08/14/24 00:47 00:57 WBC Immature Gran # Neutrophils # APTT 18.4 L Sodium Glucose POC Glucose (mg/dL) Alkaline Phosphatase U Tricyclic Antidepress Detected H U Marijuana (THC) Screen Detected H Assessment and Plan Assessment: This is a 53-year-old woman who presents emergency department since the patient was found on the ground by her significant other and had bruises over the head and was unresponsive. About a month ago she had a fall concerned that her fall was due to her new onset use of marijuana that is edible and had an EEG which was reported as negative for any seizures. Probable new onset seizure History of chronic pain History of mild depression History of marijuana use Plan: The ED physician gave the patient a loading dose of Keppra 1500 mg once then started the patient on Keppra 500 mg every 12 hours. I went up on the Keppra from [id number] to adjust for her weight. I notified the patient the side effects of Keppra that can cause mood/behavioral issues Patient was given Ativan and Versed in the ED. Will do routine EEG which likely will be completed this Friday. Also ordered MRI of the brain with and without seizure protocol Seizure precaution seizure pads Per [facility] because of the seizure/syncopal episodes, avoid driving for 6 months until no further episodes, avoid heights, avoid swimming assisted or using heavy machinery. Will defer the rest of the medical management to primary and other specialist Thank you for the consultation. Time with Patient: Greater than 30
--- NOTE | 2024-08-14 12:40 | CT ---
EXAMINATION TYPE: CT facial bones wo con DATE OF EXAM: 08/14/2024 COMPARISON: None CLINICAL INDICATION: Female, 53 years old with history of add on to CT head and cervical spine if abl e pleas; PHH, NASAL BRIDGE BRUSING AND SWELLING AND PERIORBITAL EDEMA. IMAGES RECONSTRUCTED FROM BRAI N/CSPINE SCAN THIS AM. TECHNIQUE: CT scan of the sinuses is performed without contrast, axial images are obtained, coronal reformatted images are also reviewed. CT DLP: mGycm CT CTDI: mGy Automated exposure control for dose reduction was used. FINDINGS: The paranasal sinuses including the frontal, ethmoid, sphenoid, and maxillary sinuses bila terally are well-aerated without abnormal opacification. The ostiomeatal complex is patent bilateral ly on the coronal images. Visualized portion of mastoid air cells show no abnormal opacification. The globes are intact bilate rally. The osseous structures are intact and there is no facial bone fracture. IMPRESSION: 1. No facial bone trauma. 2. no trauma or inflammatory changes within the paranasal sinuses. [facility], , 08/14/2024 12:38 PM
[2024-08-14] MEDS: LISINOPRIL-HCTZ 20-25 MG 1 EACH TAB PO SCH (13:17)
[2024-08-14] MEDS: METOPROLOL TARTRATE 25 MG TAB PO SCH (13:17)
[2024-08-14] MEDS: LEVOTHYROXINE 100 MCG TAB PO SCH (13:17)
[2024-08-14] MEDS ORDERED: ACETAMINOPHEN TAB 325 MG TAB PO PRN (13:29)
--- NOTE | 2024-08-14 13:37 | P.PN ---
Subjective Progress Note Date: 08/14/24 Hospital course: Patient is a 53-year-old female with a past medical history of polypharmacy use, marijuana use/abuse, chronic pain syndrome, hypertension, hyperlipidemia, obstructive sleep apnea, hypothyroidism, GERD, and morbid obesity. She presented to our facility after being found down on the ground unresponsive/minimally responsive by family member. According to documentation in chart, pt was here a year ago for similar event where she was reported to have been found laying her face on the floor and she was unresponsive and obtunded. Patient back then was intubated and admitted to the ICU. She did have an EEG during this admission which did not show any epileptiform activity reporting normal background slowing of moderate to severe decrease suggestive of generalized cerebral dysfunction with toxic metabolic encephalopathy or diffuse structural brain abnormality. Impression back then was that the patient may have taken a marijuana edible to help her sleep better and felt like this may have contributed to her confusion. After extubation she was awake and oriented x 3 and was cleared for discharge. Patient again presenting with similar event and again endorses marijuana gummy use. Upon arrival to facility, patient underwent evaluation in the emergency department. Vital signs on arrival show blood pressure 110/98, heart rate aspiratory rate 24 7.3 F and SpO2 of 94% on 4 L and shortly after arrival vital signs improving to blood pressure 134/89, heart rate 78, respiratory rate 16, and SpO2 of 99% on room air. EKG was completed showing normal sinus rhythm at 87 bpm with no noted T wave or ST abnormalities upon personal review and interpretation. CT head negative for acute intracranial process revealing subtle superficial contusive changes involving the right lateral periorbital region but negative for acute process. CT cervical spine showing no obvious acute osseous traumatic injury involving cervical spine. Chest x-ray showing cardiomegaly with no evidence for significant acute traumatic injury to chest/thoracic region. X-ray pelvis negative for acute fracture or osseous abnormality. CT facial bones negative for facial bone fractures. Labs completed and reviewed. CBC showing leukocytosis with WBC count of 12, immature granulocytes of 0.19, neutrophils of 10.16. Coagulation profile showing low PTT of 18.4. BMP showing sodium 135 and blood glucose of 111. Lactic acid was 1.1. Calcium 9.3. Magnesium 2.2. Liver profile showing elevated alkaline phosphatase of 199 otherwise normal findings. Ammonia level was less than 9. Creatinine kinase 57. Troponin negative at less than 0.012. proBNP 67. Urinalysis negative for infection. Urine drug screen positive for tricyclic antidepressants and marijuana. Serum alcohol level less than 10. Shortly after awakening in the emergency department and becoming more alert patient was reportedly very combative and agitated with questionable postictal state. Patient was given a loading dose of Keppra along with multiple doses of Ativan and Geodon along with a one-time dose of Versed. Patient was then admitted under services with consultation to neurology and psychiatry. Physical exam: Patient seen full evaluated at bedside in ER room 4. She remains drowsy but easily awoken via verbal stimuli. Patient alert to person and time only remains confused to place and situation/events leading up to her hospitalization. Patient does admit to consuming cannabis Gummies. She currently denies having any pain or complaints at this time. She denies headache, lightheadedness, dizziness, chest pain, palpitations, shortness of breath or experiencing any numbness/tingling/weakness in her extremities. Patient had no evidence of biting tongue during fall but does have noted bruising to nasal bridge and a small skin tear on left foot/toe. Patient appeared very surprised when she was informed of bruising to her nasal bridge and stated I would have never known. Vital signs reviewed and stable. General: Nontoxic, drowsy but easily awoken via verbal stimuli. Derm: Skin warm and dry, normal coloration for ethnicity. In addition to nasal bridge bruising as stated below patient also with small area of bruising to left side chest/breast and shoulder Head: Normocephalic and symmetric. Patient with bruising and edema to nasal bridge extending into medial periorbital region bilaterally Eyes: EOM's intact, no lid lag, and anicteric sclera Mouth: no lip lesions, mucus membranes moist Cardiovascular: regular rate and rhythm with normal S1S2, no murmur, positive posterior tibial pulses bilaterally, and cap refill < 2 seconds. Lungs: Respirations even, regular, and unlabored on room air. Lungs diminished, no rhonchi, rales, or wheezing noted, and no accessory muscle usage. Abdominal: soft obese abdomen, nontender to palpation, no guarding, no appreciable organomegaly Ext: ROM intact. No gross muscle atrophy, no edema, no contractures Neuro: Speech clear, face symmetrical and CN II-XII grossly intact with no noted focal neuro deficits Psych: Alert and oriented to person and time only. Patient drowsy but easily awoken via verbal stimuli and answers questions appropriately regarding past history but is confused to situation and place Assessment and Plan of Care: Acute metabolic encephalopathy, possibly secondary to polypharmacy use along with marijuana abuse with edibles Loss of consciousness with fall, unclear cause. Suspect secondary to above Polypharmacy use Cannabinoid abuse, consuming edibles Chronic pain syndrome - Maintain safe and supportive care with continuous seizure precautions and fall precautions. - Neurochecks and continuous telemetry monitoring - Consult to neurologist, discussed plan of care with Dr. Bronw. - MRI brain To be completed - EEG to be completed. - Patient to remain on continuous telemetry monitoring. - Psychiatry consulted, appreciate recommendations - Polypharmacy use as patient on multiple medications including but not limited to: amitriptyline, Flexeril, Neurontin, Imitrex, Percocet, Wellbutrin, and Cymbalta - Will resume Neurontin 600 mg daily but hold 900 mg nightly dose and hold Percocets, Flexeril, and amitriptyline at this time. - Tylenol 650 mg every 6 hours as needed for mild pain and Toradol 15 mg IVP every 6 hours as needed for moderate to severe pain. Hypertension Monitor vital signs and resume lisinopril/hydrochlorothiazide 20/25 mg tablets daily. Hypothyroidism -Resume levothyroxine 100 mcg daily and follow-up with TSH and reflex free T4 results. Hyperlipidemia -Continue pravastatin 40 mg daily. GERD -Protonix 40 mg daily. Obstructive sleep apnea -Patient denies CPAP/BiPAP use nightly. CODE STATUS: Full code DVT prophylaxis: Lovenox 40 mg twice daily Anticipated discharge date: Pending clinical course Anticipated discharge place: Pending clinical course Patient was seen independently by Nurse Pracitioner. This document was prepared using [employer] dictation software. Please allow for errors in utilization supervisor, while rare they do occur. Ruben Cadet NP rendered care for this patient independently, reviewed the findings and plan as documented in the note above and agree with plan. I did not physically speak with or examine the patient on this date. Objective - Vital Signs Vital signs: Vital Signs Temp 97.3 F L 08/14/24 00:16 Pulse 71 08/14/24 07:00 Resp 18 08/14/24 07:00 BP 125/50 08/14/24 07:00 Pulse Ox 99 08/14/24 07:00 FiO2 Intake & Output 08/13/24 08/14/24 08/14/24 18:59 06:59 18:59 Weight 145.603 kg - Labs CBC & Chem 7: 08/14/24 00:47 08/14/24 00:47 Labs: Abnormal Lab Results - Last 24 Hours (Table) 08/14/24 08/14/24 08/14/24 Range/Units 00:25 00:47 00:47 WBC 12.72 H (4.50-10.00) 10*3/uL Immature Gran # 0.19 H (0.00-0.04) 10*3/uL Neutrophils # 10.16 H (1.80-7.70) 10*3/uL APTT (22.0-30.0) sec Sodium 135 L (137-145) mmol/L Glucose 111 H (74-99) mg/dL POC Glucose (mg/dL) 111 H (70-110) mg/dL Alkaline Phosphatase 199 H (38-126) U/L U Tricyclic Antidepress (NotDetected) U Marijuana (THC) Screen (NotDetected) 08/14/24 08/14/24 Range/Units 00:47 00:57 WBC (4.50-10.00) 10*3/uL Immature Gran # (0.00-0.04) 10*3/uL Neutrophils # (1.80-7.70) 10*3/uL APTT 18.4 L (22.0-30.0) sec Sodium (137-145) mmol/L Glucose (74-99) mg/dL POC Glucose (mg/dL) (70-110) mg/dL Alkaline Phosphatase (38-126) U/L U Tricyclic Antidepress Detected H (NotDetected) U Marijuana (THC) Screen Detected H (NotDetected)
--- NOTE | 2024-08-14 16:35 | P.CN ---
Psychiatric Consult - . Consult date: 08/14/24 Consult:: Dictation was produced using [employer] dictation software. Please excuse any grammatical, word or spelling errors. IDENTIFYING DATA: This patient is a 53 years old female with past history of cannabis use, chronic pain syndrome, and other medical comorbidities including hypertension, hyperlipidemia, LAMAR, hypothyroidism, GERD, and morbid obesity. REASON FOR REFERRAL: Psychiatry was consulted for altered mental status. HISTORY OF PRESENT ILLNESS: The patient presented to the hospital after being found by family member on the ground, minimally responsive. She had the same presentation about a year ago during that time she was admitted to the ICU and was intubated. Per chart review she had an EEG during this admission last year which did not show any epileptiform activity reporting normal background slowing of moderate to severe decrease suggestive of generalized cerebral dysfunction with toxic metabolic encephalopathy or diffuse structural brain abnormality. At that time they thought marijuana edible may have contributed to her confusion. After extubation she was awake and oriented x 3 and was cleared for discharge. Patient again presenting with similar event and again endorses marijuana gummy use this time. Her UDS was positive for cannabis and tricyclic antidepressant. Serum alcohol level negative. She was combative in the ED, and agitated with questionable postictal state, she was given Keppra and Geodon. The patient psychiatric medication include bupropion XL 300 mg p.o. daily, Cymbalta 60 mg p.o. daily. Upon evaluation in the emergency room the patient was laying in bed, she was awake, oriented x 4. She was able to elaborate and what happened and what brought her to the hospital, she states that she is currently living with her SO "Faisal" who found her on the floor, she could not recall what happened and she could not tell if she had a seizure episode, she denied any previous history of seizures. States that she had the same issue last year and she stayed in the ICU for 4-5 days. She admitted to moderate depression and anxiety, reported that over the last week she has been feeling more depressed, reported that her sleep has not been that great and admitted to good appetite. She denied any current suicidal, self-harm or homicidal thoughts or behavior, denied any previous history of suicide. She admitted to moderate anxiety mainly related to not having good relationship with her family and not being in contact with them for about a year. Denied any current manic or hypomanic symptoms, denied any racing thoughts or goal-directed activities. Denied any AVH, paranoia or delusion. She reported that she has been taking Wellbutrin and Cymbalta for more than 2 years which was started by her PCP. She denied using any tobacco, alcohol, or illicit substance aside from cannabis Gummies every night. PAST PSYCHIATRIC HISTORY: - Inpatient Hospitalizations: Denies - Outpatient Care: Denies seeing a psychiatrist before, reported her PCP giving her her psychotropic medication - Current Psychotropics: Wellbutrin XL 300 mg p.o. daily, Cymbalta 60 mg p.o. daily - Prior Psychotropics/Therapy: Patient reported that she tried different psychotropic medication in the past and reported that Lexapro used to be helpful. - Suicidal Attempts: Denies PAST MEDICAL HISTORY: As per ED note ALLERGIES: as per EMR. CHEMICAL DEPENDENCY HISTORY: as per HPI. FAMILY PSYCHIATRIC/SUBSTANCE USE HISTORY:She reported that her mother has bipolar disorder, denied any family history of suicide or substance use. SOCIAL HISTORY: Patient was born in [place] and she was moved to [place] 9 years ago. , she has 1 son 32 years old. She is on disability for medical reasons, claims that she was able to get some college as highest level of education. She denied any legal issues. MENTAL STATUS EXAM: General Appearance: Patient appears to be stated age, is alert, awake, oriented x 3, pleasant, and cooperative. Patient appears to have fair hygiene and grooming, was covered by a blanket and laying down on the stretcher in the ED room with fair eye contact. Behavior: Patient is calmly lying in bed without any agitated behavior. Speech: Patient's speech is fluent and nonpressured. Mood/Affect: Patient reports their mood is "okay", affect is congruent Suicidality/Homicidality: Patient denies having any suicidal or homicidal ideation intent or plan. Perceptions: Patient denies any visual hallucinations and denies any auditory hallucinations Though content/process: There is no evidence of any delusional thought content and thought process is linear and goal-directed. Memory and concentration: AOX3, grossly intact for the purposes of this session. Can spell "WORLD" backwards Judgment and insight: Fair IMPRESSIONS: Acute metabolic encephalopathy, possibly secondary to polypharmacy use along with marijuana abuse with edibles Anxiety disorder, unspecified Depressive disorder, unspecified PLAN: -At this time patient DOES NOT meet criteria for inpatient psychiatric admission. -Continue current care as per primary team -Would recommend the following medication changes/additions: Hold Wellbutrin XL 300 mg daily, may consider increasing Cymbalta pending the patient progress, since Wellbutrin might lower the threshold of seizures -The patient will benefit from having an outpatient psychiatrist and therapist to help dealing with her stressors -break up worker to provide patient with outpatient mental health/psychiatry resources for appropriate follow up upon discharge -Cementer Machine Applicator spoke with patient about cannabis use and the harmful effects on medical and mental health, patient verbally understood and agreed. -Communicated plan to patient's nurse -Will continue to follow along -Please contact with any questions. 08/14/24 14:34 08/14/24 16:15
[2024-08-14] MEDS: KETOROLAC 15 MG/ML 1 ML VIAL IVP PRN (19:47)
[2024-08-14] MEDS: ENOXAPARIN 40 MG/0.4 ML SYRINGE SQ SCH (20:43)
[2024-08-15] MEDS: ONDANSETRON 4 MG/2 ML VIAL IVP PRN (02:02)
[2024-08-15 06:16] LABS: Basophils # (A) 0.04 10*3/uL (0.00-0.10); Basophils % (A) 0.5 %; Eosinophils # (A) 0.12 10*3/uL (0.04-0.35); Eosinophils % (A) 1.4 %; HCT 37.1 % (37.2-46.3); HGB 12.6 g/dL (12.0-15.0); Lymphocytes # (A) 2.33 10*3/uL (0.90-5.00); Lymphocytes % (A) 28.1 %; MCH 31.3 pg (27.0-32.0); MCV 92.3 fL (80.0-97.0); Mean Platelet Volume 9.6 fL (9.5-12.2); Monocytes # (A) 0.61 10*3/uL (0.20-1.00); Monocytes % (A) 7.3 %; Neutrophils # (A) 5.16 10*3/uL (1.80-7.70); Neutrophils % (A) 62.2 %; Platelet Count 282 10*3/uL (140-440); RBC 4.02 10*6/uL (4.10-5.20); RDW 12.2 % (11.5-14.5)
[2024-08-15 06:41] LABS: ALT 25 U/L (4-34); AST 32 U/L (14-36); African American GFR (CKD) >90 (>60 ml/min/1.73 sqM); Albumin 3.6 g/dL (3.5-5.0); Alkaline Phosphatase 115 U/L (38-126); Anion Gap 8 mmol/L; Blood Urea Nitrogen 15 mg/dL (7-17); Calcium 9.3 mg/dL (8.4-10.2); Carbon Dioxide 29 mmol/L (22-30); Chloride 97 mmol/L (98-107); Glucose 98 mg/dL (74-99); Magnesium 2.1 mg/dL (1.6-2.3); Non-African American GFR(CKD) >90 (>60 ml/min/1.73 sqM); Potassium 3.4 mmol/L (3.5-5.1); Sodium 134 mmol/L (137-145); Total Bilirubin 0.7 mg/dL (0.2-1.3)
[2024-08-15] MEDS: PRAVASTATIN SODIUM 40 MG TAB PO SCH (08:06)
[2024-08-15] MEDS: GABAPENTIN 300 MG CAP PO SCH (08:06)
[2024-08-15] MEDS: PANTOPRAZOLE 40 MG TABLET PO SCH (08:06)
[2024-08-15] MEDS: hydroCHLOROthiazide 25 MG TAB PO SCH (08:06)
[2024-08-15] MEDS: DULoxetine HCL 60 MG CAPSULE.DR PO SCH (08:06)
[2024-08-15] MEDS ORDERED: buPROPion XL 300 MG TAB.ER.24H PO SCH (09:00)
[2024-08-15] MEDS: POTASSIUM CHLORIDE ER 20 MEQ TAB.ER PO STA (09:03)
--- NOTE | 2024-08-15 11:27 | P.PN ---
Subjective Progress Note Date: 08/15/24 I am following-up with the patient and she feels slightly better. Feels her pain is osre. Otherwise, now new neurological issues. Objective - Vital Signs Vital signs: Vital Signs Temp 98.9 F 08/15/24 05:46 Pulse 67 08/15/24 10:30 Resp 16 08/15/24 10:30 BP 126/77 08/15/24 10:30 Pulse Ox 95 08/15/24 10:30 FiO2 - Exam General: Sitting in a recliner chair and is not in acute distress. HENT: Bruise over the nasal region. Neuro: Mildly drowsy. Patient is awakeable to voice. Is oriented to self, place and time. Is following simple commands. No aphasia. Pupils are round, 5mm and reactive to light. EOM intact and no nystagmus. No facial weakness. Motor: Lifting all extremities above gravity and is equal. Has bruises over the lowers. Some of the workup during this hospital visit consisted of: Next Patient is afebrile Initial serum glucose was 111, sodium is 135, calcium is 9.3, phosphorus 3.7, magnesium is 2.2, ammonia level is less than 9, AST ALT is within normal limits Urine drug screen is positive for tricyclic antidepressant and marijuana. CT of the head is reported as no acute intracranial process identified. Subtle superficial contusive changes involving the right lateral periorbital region. No acute osseous abnormality. I personally reviewed the CT of the head and I agree there is no acute or subacute ischemic stroke or any mass effect. CT cervical spine is reported as limited examination secondary due to diffuse motion artifact. No obvious acute osseous traumatic injury identified involving the cervical spine. Reviewed the CT cervical spine and I agree there is motion artifact. CT face: No facial bone trauma. - Labs CBC & Chem 7: 08/15/24 06:05 08/15/24 06:05 Labs: Abnormal Lab Results - Last 24 Hours (Table) 08/15/24 08/15/24 Range/Units 06:05 06:05 RBC 4.02 L (4.10-5.20) 10*6/uL Hct 37.1 L (37.2-46.3) % Sodium 134 L (137-145) mmol/L Potassium 3.4 L (3.5-5.1) mmol/L Chloride 97 L (98-107) mmol/L Total Protein 6.0 L (6.3-8.2) g/dL Assessment and Plan Assessment: This is a 53-year-old woman who presents emergency department since the patient was found on the ground by her significant other and had bruises over the head and was unresponsive. About a month ago she had a fall concerned that her fall was due to her new onset use of marijuana that is edible and had an EEG which was reported as negative for any seizures. Probable new onset seizure History of chronic pain History of mild depression History of marijuana use Plan: Continue Keppra 750mg bid (started during this hospital admission). I notified the patient the side effects of Keppra that can cause mood/behavioral issues Will do routine EEG which likely will be completed this Friday. Also ordered MRI of the brain with and without seizure protocol Seizure precaution seizure pads Per [facility] because of the seizure/syncopal episodes, avoid driving for 6 months until no further episodes, avoid heights, avoid swimming assisted or using heavy machinery. Will defer the rest of the medical management to primary and other specialist Dr. Fam will resume neurology service tomorrow A.M. Time with Patient: Less than 30
--- NOTE | 2024-08-15 11:42 | P.PN ---
Subjective Progress Note Date: 08/15/24 Hospital course: Patient is a 53-year-old female with a past medical history of polypharmacy use, marijuana use/abuse, chronic pain syndrome, hypertension, hyperlipidemia, obstructive sleep apnea, hypothyroidism, GERD, and morbid obesity. She presented to our facility after being found down on the ground unresponsive/minimally responsive by family member. According to documentation in chart, pt was here a year ago for similar event where she was reported to have been found laying her face on the floor and she was unresponsive and obtunded. Patient back then was intubated and admitted to the ICU. She did have an EEG during this admission which did not show any epileptiform activity reporting normal background slowing of moderate to severe decrease suggestive of generalized cerebral dysfunction with toxic metabolic encephalopathy or diffuse structural brain abnormality. Impression back then was that the patient may have taken a marijuana edible to help her sleep better and felt like this may have contributed to her confusion. After extubation she was awake and oriented x 3 and was cleared for discharge. Patient again presenting with similar event and again endorses marijuana gummy use. Upon arrival to facility, patient underwent evaluation in the emergency department. Vital signs on arrival show blood pressure 110/98, heart rate aspiratory rate 24 7.3 F and SpO2 of 94% on 4 L and shortly after arrival vital signs improving to blood pressure 134/89, heart rate 78, respiratory rate 16, and SpO2 of 99% on room air. EKG was completed showing normal sinus rhythm at 87 bpm with no noted T wave or ST abnormalities upon personal review and interpretation. CT head negative for acute intracranial process revealing subtle superficial contusive changes involving the right lateral periorbital region but negative for acute process. CT cervical spine showing no obvious acute osseous traumatic injury involving cervical spine. Chest x-ray showing cardiomegaly with no evidence for significant acute traumatic injury to chest/thoracic region. X-ray pelvis negative for acute fracture or osseous abnormality. CT facial bones negative for facial bone fractures. Labs completed and reviewed. CBC showing leukocytosis with WBC count of 12, immature granulocytes of 0.19, neutrophils of 10.16. Coagulation profile showing low PTT of 18.4. BMP showing sodium 135 and blood glucose of 111. Lactic acid was 1.1. Calcium 9.3. Magnesium 2.2. Liver profile showing elevated alkaline phosphatase of 199 otherwise normal findings. Ammonia level was less than 9. Creatinine kinase 57. Troponin negative at less than 0.012. proBNP 67. Urinalysis negative for infection. Urine drug screen positive for tricyclic antidepressants and marijuana. Serum alcohol level less than 10. Shortly after awakening in the emergency department and becoming more alert patient was reportedly very combative and agitated with questionable postictal state. Patient was given a loading dose of Keppra along with multiple doses of Ativan and Geodon along with a one-time dose of Versed. Patient was then admitted under services with consultation to neurology and psychiatry. Physical exam: Patient seen full evaluated again this morning in ER room 4. She remains drowsy but easily awoken via verbal stimuli. Patient alert to person, place, and time. But remains confused with memory loss proceeding events leading up to hospitalization. She denies having any headache, lightheadedness, dizziness, chest pain, palpitations, abdominal pain, nausea, vomiting, or experiencing any numbness/tingling/focal weakness in her extremities. Previously noted swelling to nasal bridge extending into medial periorbital region has resolved, with just bruising to nasal bridge remaining. Vital signs reviewed and stable. General: Nontoxic, drowsy but easily awoken via verbal stimuli. Obese Derm: Skin warm and dry, normal coloration for ethnicity. In addition to nasal bridge bruising as stated below patient also with small area of bruising to left side chest/breast and shoulder Head: Normocephalic and symmetric. Patient with bruising to nasal bridge Eyes: EOM's intact, no lid lag, and anicteric sclera Mouth: no lip lesions, mucus membranes moist Cardiovascular: regular rate and rhythm with normal S1S2, no murmur, positive posterior tibial pulses bilaterally, and cap refill < 2 seconds. Lungs: Respirations even, regular, and unlabored on room air. Lungs diminished, no rhonchi, rales, or wheezing noted, and no accessory muscle usage. Abdominal: soft obese abdomen, nontender to palpation, no guarding, no appreciable organomegaly Ext: ROM intact. No gross muscle atrophy, no edema, no contractures Neuro: Speech clear, face symmetrical and CN II-XII grossly intact with no noted focal neuro deficits Psych: Alert and oriented to person and time only. Patient drowsy but easily awoken via verbal stimuli and answers questions appropriately regarding past history but is confused to situation and place Assessment and Plan of Care: Acute metabolic encephalopathy, possibly secondary to polypharmacy use along with marijuana abuse with edibles Loss of consciousness with fall, unclear cause. Suspect secondary to above Polypharmacy use Cannabinoid abuse, consuming edibles Chronic pain syndrome - Maintain safe and supportive care with continuous seizure precautions and fall precautions. - Neurochecks and continuous telemetry monitoring - Neurology following, discussed plan of care with Dr. Brown. - MRI brain To be completed - EEG to be completed. - Patient to remain on continuous telemetry monitoring. - Psychiatry consulted, recommending discontinuation of Wellbutrin and c onsideration of possible increase of Cymbalta on outpatient basis. Psychiatrist recommending patient be provided with outpatient therapy and counseling resources at time of discharge. - Polypharmacy use as patient on multiple medications including but not limited to: amitriptyline, Flexeril, Neurontin, Imitrex, Percocet, Wellbutrin, and Cymbalta - Continue Neurontin 600 mg daily but hold 900 mg nightly dose and hold Percocets, Flexeril, and amitriptyline at this time. Psychiatry evaluated disc ontinuing Wellbutrin and stating patient may benefit from increasing Cymbalta dose outpatient. - Tylenol 650 mg every 6 hours as needed for mild pain and Toradol 15 mg IVP every 6 hours as needed for moderate to severe pain. - Orthostatic vitals to be completed. Hypertension Monitor vital signs and continue lisinopril/hydrochlorothiazide 20/25 mg tablets daily. Hypothyroidism -Continue levothyroxine 100 mcg daily. TSH normal findings at 2.840. Hyperlipidemia -Continue pravastatin 40 mg daily. GERD -Protonix 40 mg daily. Obstructive sleep apnea -Patient denies CPAP/BiPAP use nightly. Data and imaging: Vital signs reviewed. Blood pressure 131/75, heart rate 82, respiratory rate 18, temp 98.9 F, and SpO2 of 96% on room air. Morning labs reviewed. CBC showing resolution of leukocytosis with WBC count of 8.30. BMP showing hyponatremia with sodium of 134, hypokalemia with pota ssium of 3.4, and hypochloremia with chloride of 97. Blood glucose 98. Magnesium 2.1. Liver profile remains unremarkable. TSH normal findings at 2.840. CODE STATUS: Full code DVT prophylaxis: Lovenox 40 mg twice daily Anticipated discharge date: Pending clinical course Anticipated discharge place: Pending clinical course Patient was seen independently by Nurse Pracitioner. This document was prepared using [employer] dictation software. Please allow for errors in mud mill tender, while rare they do occur. Ruben Cadet DURABLE MEDICAL EQUIPMENT TECHNICIAN rendered care for this patient independently, reviewed the findings and plan as documented in the note above and agree with plan. I did not physically speak with or examine the patient on this date. Objective - Vital Signs Vital signs: Vital Signs Temp 98.9 F 08/15/24 05:46 Pulse 82 08/15/24 05:46 Resp 18 08/15/24 05:46 BP 131/75 08/15/24 05:46 Pulse Ox 96 08/15/24 05:46 FiO2 - Labs CBC & Chem 7: 08/15/24 06:05 08/15/24 06:05 Labs: Abnormal Lab Results - Last 24 Hours (Table) 08/15/24 08/15/24 Range/Units 06:05 06:05 RBC 4.02 L (4.10-5.20) 10*6/uL Hct 37.1 L (37.2-46.3) % Sodium 134 L (137-145) mmol/L Potassium 3.4 L (3.5-5.1) mmol/L Chloride 97 L (98-107) mmol/L Total Protein 6.0 L (6.3-8.2) g/dL
--- NOTE | 2024-08-15 14:00 | MR ---
EXAMINATION TYPE: MR brain wo/w con DATE OF EXAM: 08/15/2024 1:48 PM COMPARISON: None. CLINICAL INDICATION: Female, 53 years old with history of seizure, Seizure, IV Contrast: 15 cc Gadobutrol (None if empty) TECHNIQUE: Multiplanar, multisequence images of the brain and brainstem is performed without and with IV contras t, utilizing 15 mL intravenous Gadobutrol . FINDINGS: On the T1-weighted sagittal images, the midline structures and craniovertebral junction relationships are normal. The ventricles, basal cisterns and sulci over convexities are mildly enlarged consistent with mild ge neralized atrophy. 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 There are a few scattered foci of abnormal increased signal intensity in the white matter of the fron bernardo lobes consistent with chronic ischemic white matter change. On the diffusion-weighted images, there is no diffusion restriction or acute ischemic event. Following contrast administration, there is no pathological enhancement throughout the brain parenchy ma. On the susceptibility weighted images, there is no evidence of hemorrhage. The posterior fossa including the brainstem, fourth ventricle and cerebellopontine angles are normal . The intraorbital contents appear normal symmetric. Visualized paranasal sinuses and mastoid air cells are well aerated. IMPRESSION: 1. Mild generalized atrophy. 2. Mild multifocal chronic ischemic white matter change. 3. no mass mass effect or pathological enhancement. 4. No acute ischemic event or hemorrhage [facility], , 08/15/2024 1:58 PM
[2024-08-16 02:02] VITALS: RESP 18
[2024-08-16 10:21] LABS: BUN/Creat Ratio 22.12 Ratio (12.00-20.00); Blood Urea Nitrogen 17.7 mg/dL (9.0-27.0); Carbon Dioxide 27.1 mmol/L (21.6-31.8); Chloride 99 mmol/L (96-109); Glucose 96 mg/dL (70-110); Potassium 4.2 mmol/L (3.5-5.5); Sodium 136 mmol/L (135-145)
[2024-08-16 10:22] LABS: ALT 23 U/L (8-44); AST 29 U/L (13-35); Albumin 3.6 g/dL (3.8-4.9); Alkaline Phosphatase 122 U/L (41-126); Calcium 9.1 mg/dL (8.7-10.3); HCT 38.9 % (37.2-46.3); HGB 12.7 g/dL (12.0-15.0); MCH 31.3 pg (27.0-32.0); MCHC 32.6 g/dL (32.0-37.0); MCV 95.8 FL (80.0-97.0); Mean Platelet Volume 10.4 FL (9.5-12.2); NRBC Per 100 WBC 0 X 10*3/uL (0.00-0.01); Platelet Count 284 X 10*3/uL (140-440); RBC 4.06 X 10*6/uL (4.10-5.20); RDW 12.5 % (11.5-14.5); Total Bilirubin 0.2 mg/dL (0.3-1.2); Total Protein 5.6 g/dL (6.2-8.2); WBC 7.68 X 10*3/uL (4.50-10.00)
--- NOTE | 2024-08-16 14:06 | EEG ---
ELECTROENCEPHALOGRAM REPORT PREAMBLE: This is a 53-year-old female who came with a possible seizure. The patient came to the ED, as she was found on by family members. The patient does not remember what transpired. When EMS arrived, the patient was unresponsive. CURRENT MEDICATIONS: Cymbalta, Lovenox, Neurontin, Keppra, Toradol, Ativan, Lopressor, lisinopril, and Pravachol. EEG FINDINGS: This is a 21-channel digital EEG recorded with video component, utilizing 10/20 international system with referential and bipolar montages. Background consists of well developed, well regulated moderate voltage activity in mixed frequencies of 9-10 hertz alpha, intermixed with low-voltage fast frequency beta activity. Background is posterior dominant and seems to be reactive to eye opening and closing. Intermittent left more than right temporal slowing in the theta and occasional delta range. However, no focal or generalized epileptiform activity was seen. Some drowsiness was seen with appearance of bilaterally symmetric theta frequency rhythm. Deeper stages of sleep were not seen. Photic driving response was not seen. No electrographic seizure was recorded. IMPRESSION: This is an abnormal EEG due to presence of intermittent left greater than right temporal slowing, suggestive of focal cortical neuronal dysfunction in the above described region. No epileptiform activity was seen. MMODL / IJN: [id number] /
[2024-08-16 14:29] VITALS: BP 127/88; PULSE 79; TEMP 98
--- NOTE | 2024-08-16 15:41 | P.PN ---
Subjective Progress Note Date: 08/16/24 Patient was initially seen by Dr. Win Brown. Please refer to his note for details. Patient is a 53-year-old female with likely new onset seizure. Patient was seen by myself on 06/09/2023 for similar syncopal spell and felt her syncope was due to taking double dose of edible marijuana. Her EEG did not show any epileptiform activity. She was not placed on any antiepileptic medication. Patient was seen for follow-up. Patient is sitting comfortably in the recliner. Patient states that on the day of admission, she remembers that she got up and remembers walking going to the bathroom when she without any warning, passed out and woke up in the ER. She does not remember EMS ride. She did lose control of urine but did not bite her tongue. She believes that she was out for at least 1 hour because she did not respond to her texts from her boyfriend for that period of time. When the boyfriend came over, he found her face down on the kitchen floor and he called 911. They performed CPR. Patient admits to taking marijuana Gummies every night. She only take 1 every night but she did not take for 24 hours prior to this event, as she has not had time to take it before she passed out. Patient states that previously she was taking double dose 10 and 20 mg of marijuana prior to her previous admission, but this time she is taking "microdose" 2.5 mg every night. Some of the workup during this hospital visit consisted of: Patient is afebrile Initial serum glucose was 111, sodium is 135, calcium is 9.3, phosphorus 3.7, magnesium is 2.2, ammonia level is less than 9, AST ALT is within normal limits Urine drug screen is positive for tricyclic antidepressant and marijuana. CT of the head is reported as no acute intracranial process identified. Subtle superficial contusive changes involving the right lateral periorbital region. No acute osseous abnormality. I personally reviewed the CT of the head and I agree there is no acute or subacute ischemic stroke or any mass effect. CT cervical spine is reported as limited examination secondary due to diffuse motion artifact. No obvious acute osseous traumatic injury identified involving the cervical spine. Reviewed the CT cervical spine and I agree there is motion artifact. CT face: No facial bone trauma. Objective - Vital Signs Vital signs: Vital Signs Temp 98.0 F 08/16/24 12:00 Pulse 79 08/16/24 12:00 Resp 18 08/16/24 12:00 BP 127/88 08/16/24 12:00 Pulse Ox 93 L 08/16/24 12:00 FiO2 Intake & Output 08/15/24 08/16/24 08/16/24 18:59 06:59 18:59 Weight 145.603 kg Other: Voiding Method Toilet # Voids 1 1 # Bowel Movements 1 - Exam Patient's mental status, speech and language functions are normal. Cranial nerves are normal. Muscle strength is normal in the arms and legs. No ataxia. - Labs CBC & Chem 7: 08/16/24 03:18 08/16/24 03:18 Labs: Abnormal Lab Results - Last 24 Hours (Table) 08/16/24 08/16/24 Range/Units 03:18 03:18 RBC 4.06 L (4.10-5.20) X 10*6/uL BUN/Creatinine Ratio 22.12 H (12.00-20.00) Ratio Total Bilirubin 0.2 L (0.3-1.2) mg/dL Total Protein 5.6 L (6.2-8.2) g/dL Albumin 3.6 L (3.8-4.9) g/dL Assessment and Plan Assessment: This is a 53-year-old woman who presents emergency department since the patient was found on the ground by her significant other and had bruises over the head and was unresponsive. About a month ago she had a fall concerned that her fall was due to her new onset use of marijuana that is edible and had an EEG which was reported as negative for any seizures. Probable new onset seizure History of chronic pain History of mild depression History of marijuana use Plan: Continue Keppra 750mg bid (started during this hospital admission). I notified the patient the side effects of Keppra that can cause mood/behavioral issues EEG was abnormal due to bilateral temporal slowing, left more than right. This is suggestive of focal cortical neuronal dysfunction. No epileptiform activity was seen. MRI of the brain with and without contrast revealed mild generalized atrophy. Mild multifocal chronic ischemic white matter change. No mass effect or pathological enhancement. No acute ischemic event or hemorrhage. I personally reviewed MRI agree with the findings. No significant small vessel disease seen either. No acute process. Seizure precaution seizure pads Per [facility] because of the seizure/syncopal episodes, avoid driving for 6 months until no further episodes, avoid heights, avoid swimming assisted or using heavy machinery. Will defer the rest of the medical management to primary and other specialist Recommend abstaining from marijuana use. From neurology standpoint, patient is cleared for discharge. Recommend follow- up with neurologist outpatient.
--- NOTE | 2024-08-16 16:08 | P.PN ---
Subjective Progress Note Date: 08/16/24 Hospital course: Patient is a 53-year-old female with a past medical history of polypharmacy use, marijuana use/abuse, chronic pain syndrome, hypertension, hyperlipidemia, obstructive sleep apnea, hypothyroidism, GERD, and morbid obesity. She presented to our facility after being found down on the ground unresponsive/minimally responsive by family member. According to documentation in chart, pt was here a year ago for similar event where she was reported to have been found laying her face on the floor and she was unresponsive and obtunded. Patient back then was intubated and admitted to the ICU. She did have an EEG during this admission which did not show any epileptiform activity reporting normal background slowing of moderate to severe decrease suggestive of generalized cerebral dysfunction with toxic metabolic encephalopathy or diffuse structural brain abnormality. Impression back then was that the patient may have taken a marijuana edible to help her sleep better and felt like this may have contributed to her confusion. After extubation she was awake and oriented x 3 and was cleared for discharge. Patient again presenting with similar event and again endorses marijuana gummy use. Upon arrival to facility, patient underwent evaluation in the emergency department. Vital signs on arrival show blood pressure 110/98, heart rate aspiratory rate 24 7.3 F and SpO2 of 94% on 4 L and shortly after arrival vital signs improving to blood pressure 134/89, heart rate 78, respiratory rate 16, and SpO2 of 99% on room air. EKG was completed showing normal sinus rhythm at 87 bpm with no noted T wave or ST abnormalities upon personal review and interpretation. CT head negative for acute intracranial process revealing subtle superficial contusive changes involving the right lateral periorbital region but negative for acute process. CT cervical spine showing no obvious acute osseous traumatic injury involving cervical spine. Chest x-ray showing cardiomegaly with no evidence for significant acute traumatic injury to chest/thoracic region. X-ray pelvis negative for acute fracture or osseous abnormality. CT facial bones negative for facial bone fractures. Labs completed and reviewed. CBC showing leukocytosis with WBC count of 12, immature granulocytes of 0.19, neutrophils of 10.16. Coagulation profile showing low PTT of 18.4. BMP showing sodium 135 and blood glucose of 111. Lactic acid was 1.1. Calcium 9.3. Magnesium 2.2. Liver profile showing elevated alkaline phosphatase of 199 otherwise normal findings. Ammonia level was less than 9. Creatinine kinase 57. Troponin negative at less than 0.012. proBNP 67. Urinalysis negative for infection. Urine drug screen positive for tricyclic antidepressants and marijuana. Serum alcohol level less than 10. Shortly after awakening in the emergency department and becoming more alert patient was reportedly very combative and agitated with questionable postictal state. Patient was given a loading dose of Keppra along with multiple doses of Ativan and Geodon along with a one-time dose of Versed. Patient was then admitted under services with consultation to neurology and psychiatry. Physical exam: Patient seen full evaluated again this morning. She is much more awake and alert, no longer drowsy. Discussed with patient the importance of discontinuing use of cannabis Gummies. Patient verbalizes understanding. She denies having any concerns or complaints at this time. Vital signs reviewed and stable. General: Nontoxic, drowsy but easily awoken via verbal stimuli. Obese Derm: Skin warm and dry, normal coloration for ethnicity. In addition to nasal bridge bruising as stated below patient also with small area of bruising to left side chest/breast and shoulder Head: Normocephalic and symmetric. Patient with bruising to nasal bridge Eyes: EOM's intact, no lid lag, and anicteric sclera Mouth: no lip lesions, mucus membranes moist Cardiovascular: regular rate and rhythm with normal S1S2, no murmur, positive posterior tibial pulses bilaterally, and cap refill < 2 seconds. Lungs: Respirations even, regular, and unlabored on room air. Lungs diminished, no rhonchi, rales, or wheezing noted, and no accessory muscle usage. Abdominal: soft obese abdomen, nontender to palpation, no guarding, no appreciable organomegaly Ext: ROM intact. No gross muscle atrophy, no edema, no contractures Neuro: Speech clear, face symmetrical and CN II-XII grossly intact with no noted focal neuro deficits. GCS 15. Psych: Alert and oriented to person, place, time, and situation. Appropriate and pleasant affect. Assessment and Plan of Care: Acute metabolic encephalopathy, possibly secondary to polypharmacy use along with marijuana abuse with edibles Loss of consciousness with fall, unclear cause. Suspect secondary to above Polypharmacy use Cannabinoid abuse, consuming edibles Chronic pain syndrome - Maintain safe and supportive care with continuous seizure precautions and fall precautions. - Neurochecks and continuous telemetry monitoring - Neurology following, recommended MRI and EEG - MRI brain To be completed - EEG to be completed. - Patient to remain on continuous telemetry monitoring. - Psychiatry consulted, recommending discontinuation of Wellbutrin and consideration of possible increase of Cymbalta on outpatient basis. Psychiatrist recommending patient be provided with outpatient therapy and counseling resources at time of discharge. - Polypharmacy use as patient on multiple medications including but not limited to: amitriptyline, Flexeril, Neurontin, Imitrex, Percocet, Wellbutrin, and Cymbalta - Continue Neurontin 600 mg daily but hold 900 mg nightly dose and hold Percocets, Flexeril, and amitriptyline at this time. Psychiatry evaluated discontinuing Wellbutrin and stating patient may benefit from increasing Cymbalta dose outpatient. - Tylenol 650 mg every 6 hours as needed for mild pain and Toradol 15 mg IVP every 6 hours as needed for moderate to severe pain. - Orthostatic vitals to be completed. Hypertension Monitor vital signs and continue lisinopril/hydrochlorothiazide 20/25 mg tablets daily. Hypothyroidism -Continue levothyroxine 100 mcg daily. TSH normal findings at 2.840. Hyperlipidemia -Continue pravastatin 40 mg daily. GERD -Protonix 40 mg daily. Obstructive sleep apnea -Patient denies CPAP/BiPAP use nightly. Data and imaging: Vital signs reviewed. Blood pressure 117/74, heart rate 93, respiratory rate 18, temp 98.7 F, and SpO2 of 97% on room air Morning labs reviewed. CBC unremarkable. BMP normal findings. Blood glucose 96. Calcium 9.1. Magnesium 2.0. Liver profile normal findings with the exception of low total protein of 5.6 and albumin of 3.6. CODE STATUS: Full code DVT prophylaxis: Lovenox 40 mg twice daily Anticipated discharge date: Pending clinical course, awaiting completion of MRI and EEG Anticipated discharge place: Pending clinical course Patient was seen independently by Nurse Pracitioner. This document was prepared using [employer] dictation software. Please allow for errors in email manager, while rare they do occur. Ruben Cadet NP rendered care for this patient independently, reviewed the findings and plan as documented in the note above and agree with plan. I did not physically speak with or examine the patient on this date. Objective - Vital Signs Vital signs: Vital Signs Temp 98.7 F 08/16/24 07:52 Pulse 93 08/16/24 07:52 Resp 18 06/23/25 07:52 BP 117/74 08/16/24 07:52 Pulse Ox 98 08/16/24 09:02 FiO2 Intake & Output 08/15/24 08/16/24 08/16/24 18:59 06:59 18:59 Weight 145.603 kg Other: Voiding Method Toilet # Voids 1 - Labs CBC & Chem 7: 08/16/24 03:18 08/16/24 03:18
--- NOTE | 2024-08-16 16:17 | P.DS ---
Providers Date of admission: 08/14/24 04:46 Expected date of discharge: 08/16/24 Attending physician: Win Oglesby MD Consults: 08/14/24 04:40 Consult Physician Routine Consulting Provider: Psychiatry - [facility] Psychiatry Consult Reason/Comments: ams Do you want consulting provider notified?: Yes Consult Physician Routine Consulting Provider: Win Brown Consult Reason/Comments: sz,ams Do you want consulting provider notified?: Yes Primary care physician: Ismael Jenkins Hospital Course: Discharge Diagnosis: Acute metabolic encephalopathy, possibly secondary to polypharmacy use along with marijuana abuse with edibles Loss of consciousness with fall, unclear cause. Suspect secondary to above, however cannot rule out seizure. Polypharmacy use. Recommend discontinuation of Percocets, Wellbutrin, and 900 mg Neurontin nightly dose. Cannabinoid abuse, consuming edibles. Patient strongly educated on the importance of avoiding any further use of marijuana Gummies as doing so has resulted patient in not 1 but 2 hospitalizations for episodes of unresponsiveness. Chronic pain syndrome Hypertension Hypothyroidism TSH normal findings at 2.840. Hyperlipidemia GERD Obstructive sleep apnea Hospital Course: Patient is a 53-year-old female with a past medical history of polypharmacy use, marijuana use/abuse, chronic pain syndrome, hypertension, hyperlipidemia, obstructive sleep apnea, hypothyroidism, GERD, and morbid obesity. She presented to our facility after being found down on the ground unrespons diana/minimally responsive by family member. According to documentation in chart, pt was here a year ago for similar event where she was reported to have been found laying her face on the floor and she was unresponsive and obtunded. Patient back then was intubated and admitted to the ICU. She did have an EEG during this admission which did not show any epileptiform activity reporting normal background slowing of moderate to severe decrease suggestive of generalized cerebral dysfunction with toxic metabolic encephalopathy or diffuse structural brain abnormality. Impression back then was that the patient may have taken a marijuana edible to help her sleep better and felt like this may have contributed to her confusion. After extubation she was awake and oriented x 3 and was cleared for discharge. Patient again presenting with similar event and again endorses marijuana gummy use. Upon arrival to facility, patient underwent evaluation in the emergency department. Vital signs on arrival show blood pressure 110/98, heart rate aspiratory rate 24 7.3 F and SpO2 of 94% on 4 L and shortly after arrival vital signs improving to blood pressure 134/89, heart rate 78, respiratory rate 16, and SpO2 of 99% on room air. EKG was completed showing normal sinus rhythm at 87 bpm with no noted T wave or ST abnormalities upon personal review and interpretation. CT head negative for acute intracranial process revealing subtle superficial contusive changes involving the right lateral periorbital region but negative for acute process. CT cervical spine showing no obvious acute osseous traumatic injury involving cervical spine. Chest x-ray showing cardiomegaly with no evidence for significant acute traumatic injury to chest/thoracic region. X-ray pelvis negative for acute fracture or osseous abnormality. CT facial bones negative for facial bone fractures. Labs completed and reviewed. CBC showing leukocytosis with WBC count of 12, immature granulocytes of 0.19, neutrophils of 10.16. Coagulation profile showing low PTT of 18.4. BMP showing sodium 135 and blood glucose of 111. Lactic acid was 1.1. Calcium 9.3. Magnesium 2.2. Liver profile showing elevated alkaline phosphatase of 199 otherwise normal findings. Ammonia level was less than 9. Creatinine kinase 57. Troponin negative at less than 0.012. proBNP 67. Urinalysis negative for infection. Urine drug screen positive for tricyclic antidepressants and marijuana. Serum alcohol level less than 10. Shortly after awakening in the emergency department and becoming more alert patient was reportedly very combative and agitated with questionable postictal state. Patient was given a loading dose of Keppra along with multiple doses of Ativan and Geodon along with a one-time dose of Versed. Patient was then admitted under services with consultation to neurology and psychiatry. Psychiatry evaluated recommending discontinuing Wellbutrin and stated patient may be evaluated for increasing dose of Cymbalta on outpatient basis. EEG was completed showing abnormal EEG due to presence of intermittent left greater than right temporal slowing suggestive of focal cortical neuronal dysfunction with no epileptiform activity reported. MRI completed showing mild generalized atrophy with mild multifocal chronic ischemic white matter changes but negative for acute process. Neurology recommending continuation of Keppra 750 mg twice daily. Patient was strongly educated by all providers to avoid any further use of marijuana Gummies. Patient's mentation is back to baseline and she is alert and oriented x 4. Percocets and nighttime dose of Neurontin were discontinued at time of discharge along with Wellbutrin as recommended by psychiatrist. Patient discharged home with prescription for Keppra 750 mg twice daily and to follow-up outpatient with PCP in 1 to 2 days and with neurologist in 2 weeks. Physical exam: Vital signs reviewed and stable. General: Nontoxic, drowsy but easily awoken via verbal stimuli. Obese Derm: Skin warm and dry, normal coloration for ethnicity. In addition to nasal bridge bruising as stated below patient also with small area of bruising to l eft side chest/breast and shoulder Head: Normocephalic and symmetric. Patient with bruising to nasal bridge Eyes: EOM's intact, no lid lag, and anicteric sclera Mouth: no lip lesions, mucus membranes moist Cardiovascular: regular rate and rhythm with normal S1S2, no murmur, positive posterior tibial pulses bilaterally, and cap refill < 2 seconds. Lungs: Respirations even, regular, and unlabored on room air. Lungs diminished, no rhonchi, rales, or wheezing noted, and no accessory muscle usage. Abdominal: soft obese abdomen, nontender to palpation, no guarding, no appreciable organomegaly Ext: ROM intact. No gross muscle atrophy, no edema, no contractures Neuro: Speech clear, face symmetrical and CN II-XII grossly intact with no noted focal neuro deficits. GCS 15. Psych: Alert and oriented to person, place, time, and situation. Appropriate and pleasant affect. A total of 35 minutes of time were spent preparing this complex discharge summary. Pt was discharged on 08/16/2024 at 4:09 PM Patient was seen independently by Nurse Practitioner. This document was prepared using [employer] dictation software. Please allow for errors in acrylic fabricator while rare they do occur. Ruben Cadet NP rendered care for this patient independently, reviewed the findings and plan as documented in the note above. I did not physically speak with or examine the patient on this date. Patient Condition at Discharge: Stable Plan - Discharge Summary Discharge Rx Participant: No New Discharge Prescriptions: New levETIRAcetam [Keppra] 750 mg PO Q12HR 30 Days #60 tab Continue Omeprazole [PriLOSEC] 40 mg PO DAILY DULoxetine HCL [Cymbalta] 60 mg PO DAILY SUMAtriptan succinate [Imitrex] 50 mg PO DAILY PRN PRN Reason: Migraine Headache Furosemide [Lasix] 60 mg PO DAILY PRN PRN Reason: Edema hydroCHLOROthiazide [Hydrodiuril] 25 mg PO DAILY Cyclobenzaprine [Flexeril] 10 mg PO TID Pravastatin Sodium [Pravachol] 40 mg PO DAILY Levothyroxine Sodium [Synthroid] 100 mcg PO DAILY Gabapentin [Neurontin] 600 mg PO DAILY Metoprolol Tartrate [Lopressor] 25 mg PO DAILY Amitriptyline HCl [Elavil] 100 - 150 mg PO HS Nabumetone [Relafen] 750 mg PO BID Lisinopril-Hctz 20-25 mg [Zestoretic 20-25] 1 tab PO DAILY Discontinued Gabapentin [Neurontin] 900 mg PO HS buPROPion XL [Wellbutrin XL] 300 mg PO DAILY oxyCODONE-APAP 10-325MG [Percocet 10-325 mg] 1 tab PO QID Discharge Medication List Cyclobenzaprine [Flexeril] 10 mg PO TID 06/09/23 [History] DULoxetine HCL [Cymbalta] 60 mg PO DAILY 06/09/23 [History] Furosemide [Lasix] 60 mg PO DAILY PRN 06/09/23 [History] Gabapentin [Neurontin] 600 mg PO DAILY 06/09/23 [History] Levothyroxine Sodium [Synthroid] 100 mcg PO DAILY 06/09/23 [History] Metoprolol Tartrate [Lopressor] 25 mg PO DAILY 06/09/23 [History] Omeprazole [PriLOSEC] 40 mg PO DAILY 06/09/23 [History] Pravastatin Sodium [Pravachol] 40 mg PO DAILY 06/09/23 [History] SUMAtriptan succinate [Imitrex] 50 mg PO DAILY PRN 06/09/23 [History] Amitriptyline HCl [Elavil] 100 - 150 mg PO HS 08/14/24 [History] Lisinopril-Hctz 20-25 mg [Zestoretic 20-25] 1 tab PO DAILY 08/14/24 [History] Nabumetone [Relafen] 750 mg PO BID 08/14/24 [History] hydroCHLOROthiazide [Hydrodiuril] 25 mg PO DAILY 08/14/24 [History] levETIRAcetam [Keppra] 750 mg PO Q12HR 30 Days #60 tab 08/16/24 [Rx] Follow up Appointment(s)/Referral(s): Milagro Licea MD [REFERRING] - 1 Week Ismael Jenkins DO [Primary Care Provider] - 1-2 days Patient Instructions/Handouts: Seizure/Epilepsy Discharge Instructions & Follow-Up, Cannabis Abuse (DC), Encephalopathy (DC) Activity/Diet/Wound Care/Special Instructions: Activity: As tolerated. Take breaks as needed. Diet: Heart healthy and carb consistent diet. Avoid salts, or foods with hidden salts such as canned or boxed foods and frozen dinners. Extra salt makes your heart work harder and traps the fluid in your body for longer. Special Instructions: Take all of your medications as directed and remember to keep all of your doctor's appointments and follow-up as needed. Recommend discontinuation of Wellbutrin and oxycodone also recommend discon tinuation of Neurontin 900 mg nightly. Your mentation has significantly improved since hospitalization and holding these medications. As discussed with you in the past as well as during this visit it is strongly recommended you avoid any further use of marijuana Gummies as when used in conjunction with your current medications, this use has resulted in 2 prolonged hospitalizations. [place] state law states no driving until seizure free for 6 months. It is also recommended for you to avoid climbing ladders, operating dangerous or heavy machinery or unsupervised swimming until seizure free for 6 months. Thank you for allowing us to participate in your care, it was truly a pleasure having you for our patient!!! Discharge/Stand Alone Forms: Who Do I Call?, Community Resources, Outpatient Counseling, Outpatient Therapy List Discharge Disposition: HOME SELF-CARE
== END 2024-08-16 19:02 | disposition home or self-care (01) | DRG 812 ==
LOC: EC 00:15 → 3SCARD 04:46 → 4SSUR 08-15 12:14
PROVIDERS: ADMIT Student in an Organized Health Care Education/Training Program; ATTEND Student in an Organized Health Care Education/Training Program
DX: T50.911A Poisoning by multiple unspecified drugs, medicaments and biological substances, accidental (unintentional), initial encounter (principal); G92.8 Other toxic encephalopathy; D72.829 Elevated white blood cell count, unspecified; E03.9 Hypothyroidism, unspecified; E66.01 Morbid (severe) obesity due to excess calories; E78.5 Hyperlipidemia, unspecified; F12.10 Cannabis abuse, uncomplicated; R94.01 Abnormal electroencephalogram [EEG]; R74.8 Abnormal levels of other serum enzymes; F32.A Depression, unspecified; F41.9 Anxiety disorder, unspecified; G47.33 Obstructive sleep apnea (adult) (pediatric); G89.4 Chronic pain syndrome; G93.41 Metabolic encephalopathy; I10 Essential (primary) hypertension; K21.9 Gastro-esophageal reflux disease without esophagitis; R56.9 Unspecified convulsions; Z68.43 Body mass index [BMI] 50.0-59.9, adult; Z71.51 Drug abuse counseling and surveillance of drug abuser; Z91.81 History of falling; Z79.1 Long term (current) use of non-steroidal anti-inflammatories (NSAID); Z79.82 Long term (current) use of aspirin; Z79.890 Hormone replacement therapy; Z79.899 Other long term (current) drug therapy; Z87.891 Personal history of nicotine dependence
CPT/HCPCS: 36415; 70450; 70486; 70553; 71045; 72125; 72170; 80053; 80306; 80320; 81003; 82140; 82550; 83605; 83735; 83880; 84100; 84443; 84484; 85025; 85027; 85610; 85730; 93005; 94760; 95816; 96361; 96372; 96374; 96375; 96376; 99285

== ENCOUNTER → 2024-08-31 | Outpatient (CLI) | payer OTHER ==
--- NOTE | 2024-08-31 12:08 | XR ---
EXAMINATION TYPE: XR knee complete bilateral DATE OF EXAM: 08/31/2024 12:00 PM INDICATION: Patient age:Female; 53 years old; Reason for study: [id number] URBAN KNEE PAIN; [facility]. pain COMPARISON: Bilateral knee radiograph 03/22/2016 TECHNIQUE: Both knees were examined in Frontal, lateral and oblique projections. FINDINGS: No acute fracture or dislocation. Tricompartmental joint space narrowing with marginal oste ophytosis of both knees. There is bone on bone contact involving the left medial tibiofemoral joint s pace. Remote healed proximal right fibular fracture. Stable benign enchondroma within the distal righ t femoral metadiaphysis. Bilateral patella mariah. No knee joint effusion identified. IMPRESSION: 1. No acute osseous pathology. 2. Moderate bilateral knee tricompartmental osteoarthritic change. 3. Bilateral patella mariah. [facility], , 08/31/2024 12:06 PM
== END | disposition home or self-care (01) ==
LOC: RADXRYALE 11:44
PROVIDERS: ATTEND Family Medicine
DX: M17.0 Bilateral primary osteoarthritis of knee (principal)